=== PATIENT | male | born 1955 | race Caucasian/White ===

== ENCOUNTER 2022-11-08 08:34 | Outpatient (REF) | payer OTHER, SELFPAY ==
[2022-11-08 11:27] LABS: MANUAL DIFF FLAG NO
[2022-11-08 11:29] LABS: Appearance Urine Clear; Color Urine Yellow; Glucose Urine UA Negative (Negative); Leukocyte Esterase Urine Negative (Negative); Nitrite Urine Negative (Negative); PH 7.5 (5.0-9.0); Specific Gravity - Urine 1.015 (1.005-1.025); Urine Blood Negative (Negative); Urine Ketones Negative (Negative); Urine Protein Negative (Neg-Trace)
[2022-11-08 12:05] LABS: Basophils Percent Auto 0.7 % (0-2); Eosinophils Absolute Auto 0.2 X10*3/uL (0.0-0.4); Eosinophils Percent Auto 4.5 % (0-4); Hematocrit 43.3 % (42.0-52.0); Hemoglobin 14.4 g/dl (14.0-18.0); Imm Gran Abs Auto 0.01 X10*3/uL (0.00-0.03); Imm Gran Pct Auto 0.2 % (0.0-0.4); Lymphocytes Absolute Auto 1.5 X10*3/uL (1.2-4.9); Lymphocytes Percent Auto 34.9 % (20-40); Mean Corpuscular HGB Conc 33.3 g/dl (31.0-36.0); Mean Corpuscular Hemoglobin 31.4 pg (27.0-33.0); Mean Corpuscular Volume 94.5 fL (80.0-98.0); Monocytes Absolute Auto 0.5 X10*3/uL (0.1-1.2); Monocytes Percent Auto 11.6 % (2-11); Neutrophils Absolute Auto 2.1 x10*3/uL (2.0-8.3); Neutrophils Percent Auto 48.1 % (45-73); Platelet Count 198 X10*3/uL (160-400); Red Blood Count 4.58 X10*6/uL (4.60-5.80); Red Cell Distribution Width 13.2 % (11.0-16.0); White Blood Count 4.4 X10*3/uL (4.8-10.8)
[2022-11-08 12:21] LABS: Alanine Aminotransferase 24 U/L (0-40); Alkaline Phosphatase 53 U/L (39-117); Anion Gap 8 (12-20); Aspartate Amino Transferase 24 U/L (5-37); Bilirubin Total 0.8 mg/dL (0.0-1.0); Blood Urea Nitrogen 18 mg/dL (9-16); Calcium 9.1 mg/dL (8.4-10.2); Carbon Dioxide 31 mmol/L (22-29); Chloride 104 mmol/L (96-108); Cholesterol 166 mg/dL; Estimated Glomerular Filt Rate > 60; Glucose Fasting 102 mg/dL (60-99); HDL Cholesterol 63 mg/dL; LDL Cholesterol Calculated 89 mg/dl; Potassium 4.4 mmol/L (3.3-5.1); Sodium 139 mmol/L (135-145); Total Protein 6.5 g/dL (6.5-8.0); Triglycerides 73 mg/dL
[2022-11-08 12:26] LABS: Prostate Specific Antigen Scr 0.62 ng/mL (<0.05-4.0); TSH reflex Free T4 2.69 uIU/mL (0.32-4.0)
[2022-11-08 12:41] LABS: Creatinine Urine 94.84 mg/dL; Microalbumin Urine < 5.0 mg/L
== END 2022-11-08 08:35 | disposition home or self-care (01) ==
LOC: HO.HMGCLDS 08:34
PROVIDERS: PCP Family Medicine; Visit Provider Family Medicine
DX: Z00.00 Encounter for general adult medical examination without abnormal findings (principal); I10 Essential (primary) hypertension; Z12.5 Encounter for screening for malignant neoplasm of prostate
CPT/HCPCS: 36415; 80053; 80061; 81003; 82043; 84153; 84443; 85025

== ENCOUNTER 2023-02-14 09:03 | Outpatient (AMB) | payer OTHER, SELFPAY ==
--- NOTE | 2023-02-14 09:08 | A.OFFPC_ITS ---
Vital Signs 02/14/23 09:12 Height 5 ft 9 in Weight 174 lb 6 oz BMI 25.7 BP 104/68 Blood Pressure Location Lt brachial Position Sitting Respiration 17 Pulse 59 Pulse Source Pulse Oximeter Temp 98.7 F Temp Source Oral Intake Visit Reasons: CPE with f/u labs and health maint. Intake Note: Patient is here today for a physical and to follow up on his lab results. 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 HPI Details 67 y/o male presents for a CPE with f/u labs and health maintenance. Labs were drawn 11/08/22. Reviewed labs with pt. Elevated fasting glucose of 102. A1c today 02/14/23 is 5.5%. Triglycerides 73. TC 166. LDL 89. HDL 63. He states he tries to eat a healthy diet. He bicycles 3x a week for exercise. He reports last colonoscopy was 3-4 years ago. [facility] Medical History (Updated 02/14/23 @ 09:56 by Kimo Barrera) No pertinent past medical history Surgical History History of left hip replacement History of total right knee replacement Family History Mother Pacemaker Social History Household Members: Spouse Household Members Other:: mother in law Both parents involved: No Caregiver staying overnight: No Housing: House Are you a primary patient care associate to a significant other at home: No Do you presently have visiting nurse or other home services: No 75 years or older and lives alone: No Alcohol intake: current Patient Tobacco Use Status: Never used Tobacco e-Cigarette/Vaping Use: Never Used service: No Current occupational status: retired Cognitive needs: No Hearing needs: No Vision needs: No Review of Systems Const Denies chills, Denies fatigue, Denies fever(s), Denies headache(s) and Denies weakness Eyes Denies change in vision ENT Denies dizziness, Denies headache(s), Denies hearing loss, Denies nasal congestion, Denies sinus pain, Denies sinus pressure and Denies sore throat Card Denies chest pain, Denies lightheadedness, Denies dyspnea and Denies other (palpitations) Resp Denies cough, Denies dyspnea and Denies wheezing GI Denies abdominal pain, Denies melena, Denies hematochezia, Denies change in bowel habits, Denies dyspepsia and Denies nausea Denies hematuria and Denies dysuria Musc Denies abnormal gait, Denies myalgias, Denies arthralgias, Denies numbness and Denies tingling Skin/Breast Denies rash, Denies unusual bruising and Denies wounds Neuro Denies abnormal gait, Denies dizziness, Denies headache(s), Denies memory loss, Denies numbness, Denies Sensory deficit (Neuro), Denies tingling and Denies weakness Psych Denies anxiety, Denies depression and Denies memory loss Endo Denies cold intolerance, Denies fatigue, Denies heat intolerance, Denies polydipsia and Denies polyuria Kameron/Lymph Denies easy bleeding and Denies easy bruising Aller/Immun Denies wheezing Physical exam (Primary Care) Vital Signs: Last Vital Signs Temp 98.7 F 02/14/23 09:12 Pulse 59 02/14/23 09:12 Resp 17 02/14/23 09:12 BP 104/68 02/14/23 09:12 BMI result Body Mass Index 25.7 Tobacco/Smoking Status: Tobacco use Status Tobacco use date assessed 02/14/23 02/14/23 09:09 Patient Tobacco Use Status Never used Tobacco 02/14/23 09:09 e-Cigarette/Vaping Use Never Used 02/14/23 09:09 Const General: no acute distress, well developed, alert and awake Nutritional Appearance: well nourished Orientation/consciousness: patient oriented x3 HENMT Head: Yes normocephalic and Yes atraumatic Ears: hearing grossly normal bilaterally and TM's normal bilaterally General nose exam: Normal external nose present and Normal nares present Mouth: Normal oral and palatal mucosa present and moist mucous membranes Teeth and gingiva: dentition normal Throat: Yes posterior oropharynx normal Eyes General: appearance normal, both eyes and all related structures Pupils: Equal, round and reactive pupils present and Pupil accommodation reflex normal EOM: EOMs intact bilaterally Neck Neck: Yes normal visual inspection, Yes no lymphadenopathy and Yes trachea midline Thyroid: Thyroid normal Carotids: no bruits Lymphatic: no lymphadenopathy noted Chest Chest palpation & inspection: normal inspection of the chest Resp Effort & Inspection: normal respiratory effort Auscultation: clear to auscultation bilaterally Cardio Rate: regular rate Rhythm: regular rhythm Heart sounds: S1 normal heart sound present, S2 normal heart sound present, no gallops, no murmurs and no rubs Bruits: no abdominal aortic bruits and no carotid bruits GI Palpation (GI): No Abdominal aortic bruit present, Soft to palpation, nontender, No hepatosplenomegaly present and No Rebound tenderness present Auscultation: normal bowel sounds General: Yes no CVA tenderness Back/Spine/Pelvis Back: no CVA tenderness Cervical Spine: cervical ROM normal and No Cervical spine tenderness Thoracic/Lumbar Spine: thoraco-lumbar ROM normal, No pain with thoraco-lumbar ROM, No thoracic spinal tenderness and No lumbar spinal tenderness Skin Lesions: no lesions Rashes: no rashes Trauma: no lacerations or abrasions Wounds: no wounds Nails: normal Neuro General: patient oriented x3 Cranial nerves: Yes Equal, round and reactive pupils present Cognition (Neuro): normal cognition Gait exam (Neuro): Normal gait present Motor exam (neuro): 5/5 motor strength present throughout Sensory Exam: No Sensory deficit (Neuro) Deep tendon reflexes (DTR's): Right patellar reflex intensity grade: 2+ and Left patellar reflex intensity grade: 2+ Extrem General: Yes normal to inspection and No edema Psych Appearance: grossly normal Affect: normal affect Attitude: cooperative Thought process: Normal thought process present Results AMB Hemoglobin A1c AMB Hemoglobin A1c 5.5 % Last Edit by Mell Lucia on 02/14/23 10:0 4 Assessment and Plan Assessment & Plan (1) Adult general medical exam: Code(s): Z00.00 - Encounter for general adult medical examination without abnormal findings Plan: 67-year-old male presents for complete physical exam Encouraged healthy diet with active lifestyle and plenty of exercise (2) Elevated fasting glucose: Code(s): R73.01 - Impaired fasting glucose Plan: A1c towards top of normal range and some elevated fasting blood sugar. Likely insulin resistance Encouraged a diet lower in sugars and starches (3) Eczema: Code(s): L30.9 - Dermatitis, unspecified Plan: Mild eczema/dermatitis at ear canal Much improved with a moisturizer so he will continue this (4) Hyperlipidemia: Code(s): E78.5 - Hyperlipidemia, unspecified Plan: Lipids appear well controlled on rosuvastatin Continue current medication regimen (5) Screening for colon cancer: Code(s): Z12.11 - Encounter for screening for malignant neoplasm of colon Plan: Polyp noted at his last colonoscopy 3-4 years ago and they recommended a follow- up which he thinks was around 5 years This was in [facility] and he would like a closer GI specialist Referred to Gastroenterology (6) Screening for prostate cancer: Code(s): Z12.5 - Encounter for screening for malignant neoplasm of prostate Plan: PSA was within normal limits (7) Low back pain: Code(s): M54.50 - Low back pain, unspecified Plan: Patient had strained his back previously. He says this is almost resolved with gentle stretching at home. He will let me know if this flares up and I will evaluate him to determine next steps For now he can use ice/heat and gentle stretching Orders: Referrals Gastroenterology Referral Z12.11 - Encounter for screening for malignant neoplasm of colon Coding Level of Care Code Est Pt Level 3 (07259) Est Pt Prev Care >65y(51617) Diagnoses Adult general medical exam Z00.00 Elevated fasting glucose R73.01 Eczema L30.9 Hyperlipidemia E78.5 Screening for colon cancer Z12.11 Screening for prostate cancer Z12.5 Low back pain M54.50
[2023-02-14 09:12] VITALS: BP 104/68; PULSE 59; RESP 17; TEMP 37.1; BMI 25.7
== END 2023-02-14 10:14 | disposition home or self-care (01) ==
PROVIDERS: PCP Family Medicine; Visit Provider Family Medicine
DX: Z00.00 Encounter for general adult medical examination without abnormal findings (principal); R73.01 Impaired fasting glucose; L30.9 Dermatitis, unspecified; E78.5 Hyperlipidemia, unspecified; Z12.11 Encounter for screening for malignant neoplasm of colon; Z12.5 Encounter for screening for malignant neoplasm of prostate; M54.50 Low back pain, unspecified
CPT/HCPCS: 83036; 99397

== ENCOUNTER 2023-06-25 11:39 | Outpatient (AMB) | payer OTHER, SELFPAY ==
--- NOTE | 2023-06-25 11:50 | A.OFFPC_ITS ---
Vital Signs 06/25/23 11:51 Height 5 ft 9 in Weight 177 lb 8 oz BMI 26.2 BP 120/76 Blood Pressure Location Lt brachial Position Sitting Pulse 81 Pulse Oximetry (%) 98 Oxygen Delivery Method Room Air Intake Visit Reasons: f/u elevated fasting glucose Intake Note: Patient is here with elevated fasting glucose follow up today. Patient is requesting refill of Rosuvastatin. Last colonoscopy was [id number]. at [facility] in [place]. Allergies No Known Allergies Allergy (Verified 06/25/23 11:54) Tobacco use date assessed: 02/14/23 Fall risk assessment: No Falls in past year Last assessed Fall Risk: 06/25/23 HPI f/u elevated fasting glucose HPI Details 67 y/o male presents to f/u elevated fas ting blood sugars. Last A1c 02/14/23 5.5%. A1c today 06/25/23 is 5.5%. [facility] Medical History (Updated 02/14/23 @ 09:56 by Kimo Barrera) No pertinent past medical history Surgical History History of total right knee replacement History of left hip replacement Family History Mother Pacemaker Social History Household Members: Spouse Household Members Other:: mother in law Both parents involved: No Caregiver staying overnight: No Housing: House Are you a primary vp care management to a significant other at home: No Do you presently have visiting nurse or other home services: No 75 years or older and lives alone: No Alcohol intake: current Patient Tobacco Use Status: Never used Tobacco e-Cigarette/Vaping Use: Never Used service: No Current occupational status: retired Cognitive needs: No Hearing needs: No Vision needs: No Review of Systems Const Denies chills, Denies fatigue, Denies fever(s), Denies headache(s) and Denies weakness ENT Denies dizziness and Denies headache(s) Card Denies chest pain, Denies lightheadedness, Denies dyspnea and Denies other (Palpitations) Resp Denies cough, Denies dyspnea, Denies wheezing and Denies other ( shortness of breath) Musc Denies numbness and Denies tingling Neuro Denies dizziness, Denies headache(s), Denies numbness, Denies tingling, Denies paresthesias and Denies weakness Psych Denies anxiety and Denies depression Endo Denies fatigue Aller/Immun Denies wheezing Physical exam (Primary Care) Vital Signs: Last Vital Signs Pulse 81 06/25/23 11:51 BP 120/76 06/25/23 11:51 Pulse Ox 98 06/25/23 11:51 Oxygen Delivery Method Room Air 06/25/23 11:51 BMI result Body Mass Index 26.2 Tobacco/Smoking Status: Tobacco use Status Tobacco use date assessed 02/14/23 06/25/23 12:04 Patient Tobacco Use Status Never used Tobacco 06/25/23 12:04 e-Cigarette/Vaping Use Never Used 06/25/23 12:04 Const General: no acute distress and well developed Nutritional Appearance: well nourished Orientation/consciousness: patient oriented x3 HENMT Head: Yes normocephalic and Yes atraumatic Eyes General: appearance normal, both eyes and all related structures Pupils: Equal, round and reactive pupils present EOM: EOMs intact bilaterally Resp Effort & Inspection: normal respiratory effort Auscultation: clear to auscultation bilaterally Cardio Rate: regular rate Rhythm: regular rhythm Heart sounds: S1 normal heart sound present, S2 normal heart sound present, no gallops, no murmurs and no rubs Neuro General: patient oriented x3 and gait normal Cranial nerves: Yes Equal, round and reactive pupils present Psych Affect: normal affect Results AMB Hemoglobin A1c AMB Hemoglobin A1c 5.5 % Last Edit by Meenakshi Hines CMA on 06/25/23 12:24 Assessment and Plan Assessment & Plan (1) Elevated fasting glucose: Code(s): R73.01 - Impaired fasting glucose Plan: A1c?remains?at?5.5% Encouraged?healthy?diet?low?in?sugars?and?starches Continue?exercise?and?weight?control (2) Screening for colon cancer: Code(s): Z12.11 - Encounter for screening for malignant neoplasm of colon Plan: Patient?notes?his?last?colonoscopy?was?in?2020?at[facility]. Recommended?5?year?follow-up Will?request?report (3) Hyperlipidemia: Code(s): E78.5 - Hyperlipidemia, unspecified Plan: Last?LDL?cholesterol?showed?good?control?on?rosuvastatin Continue?medication Orders: Orders AMB Hemoglobin A1c Today Z13.9 - Encounter for screening, unspecified Medications: Changed From rosuvastatin 10 mg PO BEDTIME To rosuvastatin 10 mg PO BEDTIME 90 days 90 tabs 3RF Coding Level of Care Code Est Pt Level 4 (51997) Diagnoses Elevated fasting glucose R73.01 Screening for colon cancer Z12.11 Hyperlipidemia E78.5
[2023-06-25 11:51] VITALS: BP 120/76; PULSE 81; O2SAT 98; BMI 26.2
== END 2023-06-25 12:33 | disposition home or self-care (01) ==
PROVIDERS: PCP Family Medicine; Visit Provider Family Medicine
DX: R73.01 Impaired fasting glucose (principal); Z12.11 Encounter for screening for malignant neoplasm of colon; E78.5 Hyperlipidemia, unspecified
CPT/HCPCS: 83036; 99214

== ENCOUNTER 2024-02-03 07:21 | Outpatient (REF) | payer OTHER, SELFPAY ==
[2024-02-03 10:16] LABS: MANUAL DIFF FLAG NO
[2024-02-03 10:25] LABS: Appearance Urine Clear; Color Urine Yellow; Glucose Urine UA Negative (Negative); Leukocyte Esterase Urine Negative (Negative); Nitrite Urine Negative (Negative); PH 6.5 (5.0-9.0); Urine Blood Negative (Negative); Urine Ketones Negative (Negative); Urine Protein Negative (Neg-Trace)
[2024-02-03 10:28] LABS: Basophils Percent Auto 0.7 % (0-2); Eosinophils Absolute Auto 0.2 X10*3/uL (0.0-0.4); Eosinophils Percent Auto 5.3 % (0-4); Hematocrit 42.8 % (42.0-52.0); Hemoglobin 14.2 g/dl (14.0-18.0); Imm Gran Abs Auto 0.01 X10*3/uL (0.00-0.03); Imm Gran Pct Auto 0.2 % (0.0-0.4); Lymphocytes Absolute Auto 1.4 X10*3/uL (1.2-4.9); Mean Corpuscular HGB Conc 33.2 g/dl (31.0-36.0); Mean Corpuscular Hemoglobin 31.8 pg (27.0-33.0); Mean Corpuscular Volume 95.7 fL (80.0-98.0); Mean Platelet Volume 10.3 fL (9.4-12.4); Monocytes Absolute Auto 0.6 X10*3/uL (0.1-1.2); Monocytes Percent Auto 12.1 % (2-11); Neutrophils Absolute Auto 2.4 x10*3/uL (2.0-8.3); Neutrophils Percent Auto 51.7 % (45-73); Platelet Count 186 X10*3/uL (160-400); Red Blood Count 4.47 X10*6/uL (4.60-5.80); White Blood Count 4.6 X10*3/uL (4.8-10.8)
[2024-02-03 10:57] LABS: Alanine Aminotransferase 17 U/L (0-40); Albumin Level 4.1 g/dL (3.5-5.0); Alkaline Phosphatase 51 U/L (39-117); Anion Gap 11 (12-20); Aspartate Amino Transferase 20 U/L (5-37); Bilirubin Total 0.3 mg/dL (0.0-1.0); Blood Urea Nitrogen 20 mg/dL (9-16); Calcium 9.4 mg/dL (8.4-10.2); Carbon Dioxide 31 mmol/L (22-29); Chloride 104 mmol/L (96-108); Cholesterol 161 mg/dL (<200); Estimated Glomerular Filt Rate > 60; Glucose Fasting 98 mg/dL (60-99); HDL Cholesterol 65 mg/dL (>40); LDL Cholesterol Calculated 85 mg/dL (<100); Potassium 4.7 mmol/L (3.3-5.1); Sodium 141 mmol/L (135-145); Total Protein 6.9 g/dL (6.5-8.0); Triglycerides 58 mg/dL (<150)
[2024-02-03 11:04] LABS: Prostate Specific Antigen Scr 0.62 ng/mL (<0.05-4.0)
[2024-02-03 12:24] LABS: Creatinine Urine 47.97 mg/dL; Microalbumin Urine < 5.0 mg/L
== END 2024-02-03 07:22 | disposition home or self-care (01) ==
LOC: HO.HMGCLDS 07:21
PROVIDERS: PCP Family Medicine; Visit Provider Family Medicine
DX: Z00.00 Encounter for general adult medical examination without abnormal findings (principal); Z12.5 Encounter for screening for malignant neoplasm of prostate; I10 Essential (primary) hypertension
CPT/HCPCS: 36415; 80053; 80061; 81003; 82043; 82570; 84153; 84443; 85025

== ENCOUNTER 2024-02-17 11:00 | Outpatient (AMB) | payer OTHER, SELFPAY ==
--- NOTE | 2024-02-17 11:02 | A.OFFPC_ITS ---
Vital Signs 02/17/24 11:03 02/17/24 11:40 Height 5 ft 9 in Weight 167 lb 2 oz BMI 24.7 BP 148/82 H 128/80 Blood Pressure Location Lt brachial Rt brachial Position Sitting Sitting Pulse 64 Pulse Source Pulse Oximeter Pulse Oximetry (%) 97 Oxygen Delivery Method Room Air Intake Visit Reasons: CPE with f/u labs and health maintenance Intake Note: David is a 68 year old male who presents to the office today for a CPE with f/u labs and health maintenance. Pt states he is overall feeling well. Pt states his last colonoscopy was 2020 and is wondering if he should be referred to [facility]. Allergies No Known Allergies Allergy (Verified 02/17/24 11:06) Medication List - Last Reconciled 02/17/24 by Silviano Daley MD rosuvastatin 10 mg PO BEDTIME 90 days Tobacco use date assessed: 02/17/24 Fall risk assessment: No Falls in past year Last assessed Fall Risk: 02/17/24 Dental Screening Dental Screen Date: 02/17/24 Did you have a dental visit in the last 12 months?: Yes Did you have a dental problem in the last 6 months where you did not have access to dental care?: No Was dental information given to patient?: Patient has dentist HPI CPE with f/u labs and health maintenance HPI Details 68 y/o male presents for a CPE with f/u labs and health maintenance. Labs were drawn 02/03/24. Reviewed labs with pt. Triglycerides 58. TC 161. LDL 85. HDL 65. PSA 0.62. A1c today 02/17/24 is 5.7%. He continues to cycle 3 times a week. [facility] Medical History No pertinent past medical history Surgical History History of total right knee replacement History of left hip replacement Family History Mother Pacemaker Social History Household Members: Spouse Household Members Other:: mother in law Both parents involved: No Caregiver staying overnight: No Housing: House Are you a primary career law clerk to a significant other at home: No Do you presently have visiting nurse or other home services: No 75 years or older and lives alone: No Alcohol intake: current Patient Tobacco Use Status: Never used Tobacco e-Cigarette/Vaping Use: Never Used service: No Current occupational status: retired Cognitive needs: No Hearing needs: No Vision needs: No Questionnaire PHQ-9 Over the last 2 weeks, how often have you been bothered by any of the following problems? 1. Little interest or pleasure in doing things: not at all 2. Feeling down, depressed, or hopeless: not at all 3. Trouble falling or staying asleep, or sleeping too much: not at all 4. Feeling tired or having little energy: not at all 5. Poor appetite or overeating: not at all 6. Feeling bad about yourself - or that you are a failure or have let yourself or your family down: not at all 7. Trouble concentrating on things, such as reading the newspaper or watching television: not at all 8. Moving or speaking so slowly that other people could have noticed. Or the opposite - being so fidgety or restless that you have been moving around a lot more than usual: not at all 9. Thoughts that you would be better off or of hurting yourself in some way: not at all Total score: 0 Source: Developed by Drs. Josep King, Janet Negrete, Jax Lema and colleagues, with an educational meño from [employer]. Thrive Questionnaire Date Thrive assessed: 02/17/24 I am a: Patient What is your living situation today?: I have a steady place to live Within the past 12 months, did the food you bought not last and you didn't have the money to get more?: Never true Within the past 12 months, did you worry whether your food would run out before you got money to buy more?: Never true Do you have trouble paying for medicines?: No Do you have trouble getting transportation to medical appointments?: No Do you have trouble paying your heating and electricity bill?: No Do you have trouble taking care of your child, family member or friend?: No Do you have trouble with day-to-day activities such as bathing, preparing meals, shopping, managing finances, etc.?: No Are you currently unemployed and looking for a job?: No Are you interested in more education?: No THRIVE Score: 0 AUDIT C Alcohol Use Questionnaire (AUDIT-C) 1. How often do you have a drink containing alcohol?: 2-3 times a week 2. How many drinks containing alcohol do you have on a typical day when you are drinking?: 1 or 2 3. How often do you have six or more drinks on one occasion?: Never Total Score: 3 ALEX-7 AMB Questionnaire ALEX-7 Date ALEX - 7 assessed: 02/17/24 Feeling nervous, anxious, or on edge: 0 = Not at all Not being able to stop or control worryin = Not at all Worrying too much about different things: 0 = Not at all Trouble relaxin = Not at all Being so restless that it is hard to sit still: 0 = Not at all Becoming easily annoyed or irritable: 0 = Not at all Feeling afraid as if something awful might happen: 0 = Not at all Total ALEX-7 score (0-4 normal; 5-9 mild; 10-14 moderate; 15-21 severe): 0 Source: Developed by Drs. Josep King, Janet Negrete, Jax Lema and colleagues, with an educational meño from [employer]. Review of Systems Const Denies chills, Denies fatigue, Denies fever(s), Denies headache(s) and Denies weakness Eyes Denies change in vision ENT Denies dizziness, Denies headache(s), Denies hearing loss, Denies nasal congestion, Denies sinus pain, Denies sinus pressure and Denies sore throat Card Denies chest pain, Denies lightheadedness, Denies dyspnea and Denies other (palpitations) Resp Denies cough, Denies dyspnea and Denies wheezing GI Denies abdominal pain, Denies melena, Denies hematochezia, Denies change in bowel habits, Denies dyspepsia and Denies nausea Denies hematuria and Denies dysuria Musc Denies abnormal gait, Denies myalgias, Denies arthralgias, Denies numbness and Denies tingling Skin/Breast Denies rash, Denies unusual bruising and Denies wounds Neuro Denies abnormal gait, Denies dizziness, Denies headache(s), Denies memory loss, Denies numbness, Denies Sensory deficit (Neuro), Denies tingling and Denies weakness Psych Denies anxiety, Denies depression and Denies memory loss Endo Denies cold intolerance, Denies fatigue, Denies heat intolerance, Denies polydipsia and Denies polyuria Kameron/Lymph Denies easy bleeding and Denies easy bruising Aller/Immun Denies wheezing Physical exam (Primary Care) Vital Signs: Last Vital Signs Pulse 64 02/17/24 11:03 BP 148/82 H 02/17/24 11:03 Pulse Ox 97 02/17/24 11:03 Oxygen Delivery Method Room Air 02/17/24 11:03 BMI result Body Mass Index 24.7 Tobacco/Smoking Status: Tobacco use Status Tobacco use date assessed 02/17/24 02/17/24 11:09 Patient Tobacco Use Status Never used Tobacco 02/17/24 11:02 e-Cigarette/Vaping Use Never Used 02/17/24 11:02 PHQ-9: PHQ-9 Score PHQ-9: Total score 0 02/17/24 11:39 Thrive Assessment: Date of Thrive Assessment Date Thrive assessed 02/17/24 02/17/24 11:09 Const General: no acute distress, well developed, alert and awake Nutritional Appearance: well nourished Orientation/consciousness: patient oriented x3 HENMT Head: Yes normocephalic and Yes atraumatic Ears: hearing grossly normal bilaterally and TM's normal bilaterally General nose exam: Normal external nose present and Normal nares present Mouth: Normal oral and palatal mucosa present and moist mucous membranes Teeth and gingiva: dentition normal Throat: Yes posterior oropharynx normal Eyes General: appearance normal, both eyes and all related structures Pupils: Equal, round and reactive pupils present and Pupil accommodation reflex normal EOM: EOMs intact bilaterally Neck Neck: Yes normal visual inspection, Yes no lymphadenopathy and Yes trachea midline Thyroid: Thyroid normal Carotids: no bruits Lymphatic: no lymphadenopathy noted Chest Chest palpation & inspection: normal inspection of the chest Resp Effort & Inspection: normal respiratory effort Auscultation: clear to auscultation bilaterally Cardio Rate: regular rate Rhythm: regular rhythm Heart sounds: S1 normal heart sound present, S2 normal heart sound present, no gallops, no murmurs and no rubs Bruits: no abdominal aortic bruits and no carotid bruits GI Palpation (GI): No Abdominal aortic bruit present, Soft to palpation, nontender, No hepatosplenomegaly present and No Rebound tenderness present Auscultation: normal bowel sounds General: Yes no CVA tenderness Back/Spine/Pelvis Back: no CVA tenderness Cervical Spine: cervical ROM normal and No Cervical spine tenderness Thoracic/Lumbar Spine: thoraco-lumbar ROM normal, No pain with thoraco-lumbar ROM, No thoracic spinal tenderness and No lumbar spinal tenderness Skin Lesions: no lesions Rashes: no rashes Trauma: no lacerations or abrasions Wounds: no wounds Nails: normal Neuro General: patient oriented x3 Cranial nerves: Yes Equal, round and reactive pupils present Cognition (Neuro): normal cognition Gait exam (Neuro): Normal gait present Motor exam (neuro): 5/5 motor strength present throughout Sensory Exam: No Sensory deficit (Neuro) Deep tendon reflexes (DTR's): Right patellar reflex intensity grade: 2+ and Left patellar reflex intensity grade: 2+ Extrem General: Yes normal to inspection and No edema Psych Appearance: grossly normal Affect: normal affect Attitude: cooperative Thought process: Normal thought process present Results AMB Hemoglobin A1c AMB Hemoglobin A1c 5.7 % Last Edit by Waleska Burrell CMA on 02/17/24 11:23 Results Reviewed Results Reviewed: Laboratory Last Values Hgb A1c (Clinic) 5.7 % (4.0-6.0) 02/17/24 11:22 Assessment and Plan Assessment & Plan (1) Adult general medical exam: Code(s): Z00.00 - Encounter for general adult medical examination without abnormal findings Plan: 68-year-old?male?presents?for?complete?physical?exam Exam?within?normal?limits Encouraged?healthy?diet?with?active?lifestyle?and?plenty?of?exercise (2) Hyperlipidemia: Code(s): E78.5 - Hyperlipidemia, unspecified Plan: Lipids?well?controlled. Continue?rosuvastatin (3) Elevated blood pressure reading: Code(s): R03.0 - Elevated blood-pressure reading, without diagnosis of hypertension Plan: BP?elevated?at?presentation?but?is?fine?with?relaxation. (4) Pre-diabetes: Code(s): R73.03 - Prediabetes Plan: A1c?5.7%;?pre?diabetes?range Patient?has?lost?about?10?lb?but?A1c?has?climbed Encouraged?a?diet?lower?in?sugars?and?starches Will?follow (5) Screening for colon cancer: Code(s): Z12.11 - Encounter for screening for malignant neoplasm of colon Plan: Patient?says?he?had?a?colonoscopy?in?2020?and?was?told?to?follow-up?in?5?years. I?still?do?not?have?the?report?and?will?request this Expected?follow-up?in?2025.??Will?discuss?again?at?his?next?physical (6) Screening for prostate cancer: Code(s): Z12.5 - Encounter for screening for malignant neoplasm of prostate Plan: PSA?within?normal?range. Continue?annual?screening. Orders: Orders AMB Hemoglobin A1c Today R73.01 - Impaired fasting glucose Coding Level of Care Code Est Pt Level 3 (34689) Est Pt Prev Care >65y(29925) Diagnoses Adult general medical exam Z00.00 Hyperlipidemia E78.5 Elevated blood pressure reading R03.0 Pre-diabetes R73.03 Screening for colon cancer Z12.11 Screening for prostate cancer Z12.5
[2024-02-17 11:03] VITALS: BP 148/82; PULSE 64; O2SAT 97; BMI 24.7
[2024-02-17 11:40] VITALS: BP 128/80
== END 2024-02-17 11:46 | disposition home or self-care (01) ==
PROVIDERS: PCP Family Medicine; Visit Provider Family Medicine
DX: Z00.00 Encounter for general adult medical examination without abnormal findings (principal); E78.5 Hyperlipidemia, unspecified; R03.0 Elevated blood-pressure reading, without diagnosis of hypertension; R73.03 Prediabetes; Z12.11 Encounter for screening for malignant neoplasm of colon; Z12.5 Encounter for screening for malignant neoplasm of prostate; R73.01 Impaired fasting glucose
CPT/HCPCS: 83036; 99213; 99397

== ENCOUNTER 2024-05-25 09:23 | Outpatient (AMB) | payer OTHER, SELFPAY ==
--- NOTE | 2024-05-25 09:39 | A.OFFPC_ITS ---
Vital Signs 05/25/24 09:40 Height 5 ft 9 in Weight 169 lb 6 oz BMI 25.0 BP 134/71 Blood Pressure Location Rt brachial Position Sitting Respiration 16 Pulse 69 Pulse Source Pulse Oximeter Temp 98.6 F Temp Source Temporal Artery Scan Pulse Oximetry (%) 98 Oxygen Delivery Method Room Air Intake Visit Reasons: f/u elevated blood pressure reading, pre-diabetes Intake Note: f/u for B/P and Pre-DM Allergies No Known Allergies Allergy (Verified 05/25/24 09:40) Medication List - Last Reconciled 05/25/24 by Silviano Daley MD rosuvastatin 10 mg PO BEDTIME 90 days Tobacco use date assessed: 02/17/24 Dental Screening Dental Screen Date: 02/17/24 HPI f/u elevated blood pressure reading, pre-diabetes HPI Details 68 y/o male presents to f/u elevated BP reading, pre-diabetes. Last A1c 02/17/24 5.7%. A1c today 05/25/24 is 5.6%. Blood pressure today 134/71, 69p. [facility] Medical History No pertinent past medical history Surgical History History of total right knee replacement History of left hip replacement Family History Mother Pacemaker Social History Household Members: Spouse Household Members Other:: mother in law Both parents involved: No Caregiver staying overnight: No Housing: House Are you a primary social worker palliative care to a significant other at home: No Do you presently have visiting nurse or other home services: No 75 years or older and lives alone: No Alcohol intake: current Patient Tobacco Use Status: Never used Tobacco e-Cigarette/Vaping Use: Never Used service: No Current occupational status: retired Cognitive needs: No Hearing needs: No Vision needs: No Questionnaire PHQ-9 Over the last 2 weeks, how often have you been bothered by any of the following problems? 1. Little interest or pleasure in doing things: not at all 2. Feeling down, depressed, or hopeless: not at all 3. Trouble falling or staying asleep, or sleeping too much: not at all 4. Feeling tired or having little energy: not at all 5. Poor appetite or overeating: not at all 6. Feeling bad about yourself - or that you are a failure or have let yourself or your family down: not at all 7. Trouble concentrating on things, such as reading the newspaper or watching television: not at all 8. Moving or speaking so slowly that other people could have noticed. Or the opposite - being so fidgety or restless that you have been moving around a lot more than usual: not at all 9. Thoughts that you would be better off or of hurting yourself in some way: not at all Total score: 0 Source: Developed by Drs. Josep King, Janet Negrete, aJx Lema and colleagues, with an educational meño from [employer]. Thrive Questionnaire Date Thrive assessed: 05/19/24 I am a: Patient What is your living situation today?: I have a steady place to live Within the past 12 months, did the food you bought not last and you didn't have the money to get more?: Never true Within the past 12 months, did you worry whether your food would run out before you got money to buy more?: Never true Do you have trouble paying for medicines?: No Do you have trouble getting transportation to medical appointments?: No Do you have trouble paying your heating and electricity bill?: No Do you have trouble taking care of your child, family member or friend?: Yes Do you have trouble with day-to-day activities such as bathing, preparing meals, shopping, managing finances, etc.?: No Are you currently unemployed and looking for a job?: No Are you interested in more education?: No Please select the resources that you would like help with: Care for elder or disabled Currently or been in a relationship where the following occur: No concerns reported THRIVE Score: 0 AUDIT C Alcohol Use Questionnaire (AUDIT-C) 1. How often do you have a drink containing alcohol?: 2-3 times a week 2. How many drinks containing alcohol do you have on a typical day when you are drinking?: 1 or 2 3. How often do you have six or more drinks on one occasion?: Never Total Score: 3 ALEX-7 AMB Questionnaire ALEX-7 Date ALEX - 7 assessed: 02/17/24 Feeling nervous, anxious, or on edge: 0 = Not at all Not being able to stop or control worryin = Not at all Worrying too much about different things: 0 = Not at all Trouble relaxin = Not at all Being so restless that it is hard to sit still: 0 = Not at all Becoming easily annoyed or irritable: 0 = Not at all Feeling afraid as if something awful might happen: 0 = Not at all Total ALEX-7 score (0-4 normal; 5-9 mild; 10-14 moderate; 15-21 severe): 0 Source: Developed by Drs. Josep King, Janet Negrete, Jax Lema and colleagues, with an educational meño from [employer]. Review of Systems Const Denies chills, Denies fatigue, Denies fever(s), Denies headache(s) and Denies weakness ENT Denies dizziness and Denies headache(s) Card Denies dyspnea Resp Denies cough, Denies dyspnea, Denies wheezing and Denies other (shortness of breath) Musc Denies numbness and Denies tingling Neuro Denies dizziness, Denies headache(s), Denies numbness, Denies tingling and Denies weakness Psych Denies anxiety and Denies depression Endo Denies fatigue Aller/Immun Denies wheezing Physical exam (Primary Care) Vital Signs: Last Vital Signs Temp 98.6 F 05/25/24 09:40 Pulse 69 05/25/24 09:40 Resp 16 05/25/24 09:40 BP 134/71 05/25/24 09:40 Pulse Ox 98 05/25/24 09:40 Oxygen Delivery Method Room Air 05/25/24 09:40 BMI result Body Mass Index 25.0 Tobacco/Smoking Status: Tobacco use Status Tobacco use date assessed 02/17/24 05/25/24 09:43 Patient Tobacco Use Status Never used Tobacco 05/25/24 09:43 e-Cigarette/Vaping Use Never Used 05/25/24 09:43 PHQ-9: PHQ-9 Score PHQ-9: Total score 0 05/25/24 09:44 Thrive Assessment: Date of Thrive Assessment Date Thrive assessed 05/19/24 05/25/24 09:43 Currently or been in a relationship where the following occur: No concerns reported Const General: well developed; No acute distress Nutritional Appearance: well nourished Orientation/consciousness: patient oriented x3 HENMT Head: Yes normocephalic and Yes atraumatic Eyes General: appearance normal, both eyes and all related structures Pupils: Equal, round and reactive pupils present EOM: EOMs intact bilaterally Resp Effort & Inspection: normal respiratory effort Auscultation: clear to auscultation bilaterally Cardio Rate: regular rate Rhythm: regular rhythm Heart sounds: S1 normal heart sound present, S2 normal heart sound present, no gallops, no murmurs and no rubs Neuro General: patient oriented x3 and gait normal Cranial nerves: Yes Equal, round and reactive pupils present Psych Affect: normal affect Coding Level of Care Code Est Pt Level 3 (89516) Diagnoses Pre-diabetes R73.03 Elevated blood pressure reading R03.0 Assessment & Plan Assessment & Plan (1) Pre-diabetes: Code(s): R73.03 - Prediabetes Category: Medical Plan: A1c?is?stable?and?slightly?improved?from?5.7%?down?to?5.6%. Encouraged?a?diet?low?in?sugars?and?starches Encouraged?exercise?and?weight?control (2) Elevated blood pressure reading: Code(s): R03.0 - Elevated blood-pressure reading, without diagnosis of hypertension Category: Medical Plan: Blood?pressure?in?prehypertensive?range. Selin ent?notes?that?his?blood?pressures?are?better?at?home?and?increase?at?doctor's?o ffice?visit No?indication?for?medicine?at?this?time Encouraged?a?diet?low?in?sodium/salt Encouraged?exercise?and?weight?control Orders: Orders Complete Blood Count Auto Diff Today Z00.00 - Encounter for general adult medical examination without abnormal findings Prostate Specific Antigen Scr Today Z12.5 - Encounter for screening for malignant neoplasm of prostate Lipid Panel Today Z00.00 - Encounter for general adult medical examination without abnormal findings Comprehensive [place]. Panel Fast Today Z00.00 - Encounter for general adult medical examination without abnormal findings Microalbumin, Random (w Creat) Today I10 - Essential (primary) hypertension TSH reflex Free T4 Today Z00.00 - Encounter for general adult medical examination without abnormal findings UA and rflx microscopic Today Z00.00 - Encounter for general adult medical examination without abnormal findings
[2024-05-25 09:40] VITALS: BP 134/71; PULSE 69; RESP 16; TEMP 37; O2SAT 98; BMI 25.0
== END 2024-05-25 09:56 | disposition home or self-care (01) ==
PROVIDERS: PCP Family Medicine; Visit Provider Family Medicine
DX: R73.03 Prediabetes (principal); R03.0 Elevated blood-pressure reading, without diagnosis of hypertension

== ENCOUNTER → 2024-05-25 09:23 | Outpatient (BNVA) | payer OTHER, SELFPAY | PROVIDERS: PCP Family Medicine; Visit Provider Family Medicine ==

== ENCOUNTER 2025-01-20 11:27 | Inpatient (IN) | payer MEDICARE, SELFPAY ==
--- NOTE | ~2025-01-20 | XR_ITS ---
EXAMINATION: XR WRIST, RIGHT CLINICAL INFORMATION: pain, injury COMPARISON: None available. TECHNIQUE: PA, oblique, and navicular spot view of the right wrist. FINDINGS: There is no joint diastases or offset. No degenerative changes are evident. No fracture line is visualized. XR/XR wrist RT min 3V IMPRESSION: Unremarkable right wrist. Electronically signed by: Alexander Unger MD 01/20/2025 02:20 PM EDT
--- NOTE | ~2025-01-20 | XR_ITS ---
EXAMINATION: XR KNEE, RIGHT CLINICAL INFORMATION: pain, injury COMPARISON: None available. TECHNIQUE: AP and lateral view x-ray of the right knee. FINDINGS: Total knee arthroplasty has been performed. There is soft tissue swelling anterior to the knee. No fracture line is apparent. XR/XR knee RT 2V IMPRESSION: Soft tissue swelling. Total knee arthroplasty. Electronically signed by: Alexander Unger MD 01/20/2025 02:18 PM EDT
--- NOTE | ~2025-01-20 | XR_ITS ---
EXAMINATION: XR HIP, RIGHT CLINICAL INFORMATION: fall COMPARISON: None available. TECHNIQUE: AP pelvis and two-view right hip FINDINGS: Left femoral head replacement has been performed. There is a fracture through the right femoral neck with mild valgus deformity. There is mild right hip degenerative change with small marginal osteophytes involving the femoral head and acetabular roof with minimal axial joint space narrowing. There is a small cortical step-off involving the superior pubic ramus without a clear fracture line. XR/XR hip RT w PEL1V IMPRESSION: Acute right femoral neck fracture. There is a small cortical step-off involving the right superior pubic ramus but no visible fracture line. Subtle nondisplaced fracture is not ruled in or out. Left femoral head replacement. Electronically signed by: Alexander Unger MD 01/20/2025 12:03 PM EDT
--- NOTE | ~2025-01-20 | XR_ITS ---
EXAMINATION: XR HAND, RIGHT CLINICAL INFORMATION: pain, injury COMPARISON: None available. TECHNIQUE: PA, lateral, and oblique views of the right hand. FINDINGS: There is mild asymmetric narrowing of interphalangeal joints of third digit and PIP joint of the fourth. There are marginal osteophytes involving the third DIP joint and fourth and fifth No other abnormalities. PIP joints XR/XR hand RT 2V IMPRESSION: Mild osteoarthritis, as above. No acute abnormality. Electronically signed by: Alexander Unger MD 01/20/2025 02:23 PM EDT
--- NOTE | ~2025-01-20 | FL_ITS ---
EXAMINATION: FL GUIDANCE ONLY HISTORY: right hip CRPP COMPARISON: Correlation is made with plain films of the right hip dated 01/20/2025. TECHNIQUE: Fluoroscopy time: 0.5 minutes. Cumulative Dose: 15.3 mGy. DAP: 0.266 mGym2 Images: 4. FINDINGS: Fluoroscopic spot films of the right hip demonstrate internal fixation of the previously seen subcapital fracture with 3 cannulated screws. FL/FL guidance in OR IMPRESSION: Fluoroscopy during procedure. Please see procedure report for additional information. Electronically signed by: Josep Hernandez MD 01/22/2025 06:58 AM EDT
--- NOTE | ~2025-01-20 | XR_ITS ---
EXAMINATION: XR CHEST CLINICAL INFORMATION: pre-op COMPARISON: None available. TECHNIQUE: Frontal view of the chest was obtained. FINDINGS: No significant abnormality is noted involving the heart, lungs, mediastinum, bony thorax or soft tissues. Moderate osteophytes are apparent in both shoulder joints, left greater than right. XR/XR chest 1V IMPRESSION: No acute disease in the chest. Moderate degenerative changes of the shoulders, left greater than right. Electronically signed by: Alexander Unger MD 01/20/2025 02:20 PM EDT
[2025-01-20 11:32] VITALS: BP 130/76; PULSE 57; RESP 16; TEMP 37; O2SAT 98; BMI 24.4
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
[2025-01-20 13:28] VITALS: BP 153/87; PULSE 57; RESP 18; O2SAT 98
--- NOTE | 2025-01-20 13:40 | ECG_ITS ---
Test Reason : fall Blood Pressure : */* mmHG Vent. Rate : 50 BPM Atrial Rate : 50 BPM P-R Int : 184 ms QRS Dur : 94 ms QT Int : 430 ms P-R-T Axes : 45 42 30 degrees QTcB Int : 392 ms Sinus bradycardia Otherwise normal ECG No previous ECGs available Referred By: Tequila Ortiz Electronically Signed By: VINAYAK ESCALANTE
[2025-01-20 14:00] LABS: MANUAL DIFF FLAG NO
[2025-01-20 14:01] LABS: Basophils Percent Auto 0.8 % (0-2); Eosinophils Absolute Auto 0.2 X10*3/uL (0.0-0.4); Eosinophils Percent Auto 3.2 % (0-4); Hematocrit 41.4 % (42.0-52.0); Hemoglobin 14.1 g/dl (14.0-18.0); Imm Gran Abs Auto 0.01 X10*3/uL (0.00-0.03); Imm Gran Pct Auto 0.2 % (0.0-0.4); Lymphocytes Absolute Auto 0.8 X10*3/uL (1.2-4.9); Lymphocytes Percent Auto 15.7 % (20-40); Mean Corpuscular HGB Conc 34.1 g/dl (31.0-36.0); Mean Corpuscular Volume 94.1 fL (80.0-98.0); Mean Platelet Volume 9.6 fL (9.4-12.4); Monocytes Absolute Auto 0.5 X10*3/uL (0.1-1.2); Monocytes Percent Auto 9.6 % (2-11); Neutrophils Absolute Auto 3.7 x10*3/uL (2.0-8.3); Neutrophils Percent Auto 70.5 % (45-73); Platelet Count 147 X10*3/uL (160-400); Red Cell Distribution Width 13.2 % (11.0-16.0); White Blood Count 5.3 X10*3/uL (4.8-10.8)
[2025-01-20 14:17] LABS: Alanine Aminotransferase 21 U/L (0-40); Albumin Level 4.1 g/dL (3.5-5.0); Alkaline Phosphatase 47 U/L (39-117); Anion Gap 12 (12-20); Aspartate Amino Transferase 23 U/L (5-37); Blood Urea Nitrogen 11 mg/dL (9-16); Calcium 9.3 mg/dL (8.4-10.2); Carbon Dioxide 27 mmol/L (22-29); Chloride 105 mmol/L (96-108); Creatinine Clr Calc Pharmacy 72.8; Estimated Glomerular Filt Rate > 60; Glucose Random 93 mg/dL (60-115); Potassium 4.6 mmol/L (3.3-5.1); Sodium 139 mmol/L (135-145); Total Protein 6.7 g/dL (6.5-8.0)
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
[2025-01-20 15:30] VITALS: BP 168/86; RESP 16; O2SAT 95
--- NOTE | 2025-01-20 15:38 | PC.NURSE ---
Pt repositioned and warm blanket given, pain level assess,call hairston within reach.
[2025-01-20 16:00] VITALS: BP 158/83; PULSE 61; RESP 16; TEMP 36.6; O2SAT 95
--- OUTSIDE RECORDS SUMMARY | 2025-01-20 16:05 | XMS_ITS | Clinical Summary ---
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 0 Active rosuvastatin (CRESTOR) tablet 10 mg TAKE 1 TABLET DAILY 90 tablet 3 06/29/2022 Active Active Problems Problem Noted Date Diagnosed Date Pure hypercholesterolemia 06/16/2021 Inguinal hernia of right cady e without obstruction or gangrene 05/05/2020 Wound, open, hip or thigh wi th tendon involvement, right, initial encounter 08/20/2018 Tendon tear 08/12/2018 Post-traumatic osteoarthritis of knee 05/16/2017 Degenerative arthritis of hip 04/30/2016 Routine general medical exam ination at a health care facility 04/30/2016 Right knee pain 04/30/2016 Resolved Problems Problem Noted Date Diagnosed Date Resolved Date Preoperative examination 08/12/2018 Arthritis of right knee 06/24/201807/29 Primary osteoarthritis of right knee 06/05/2018 08/12/2018 Immunizations Name Administration Dates Next Due Covid-19 (Moderna 12+) 100mcg/0.5mL dosage 06/05 Covid-19 (Pfizer) Dilution Required 10/21/2020 Influenza Quad (Fluad) 0.5 mL >65Yrs (AIIV4) Influenza Quad (Fluarix/Fluz one/FluLaval) 0.5mL (SD-IIV4) 06/05/2018 Influenza Quad (Flucelvax) 0.5mL >6mon (ccIIV4) 05/05/2020,07/02/2019 Pneumococcal Conjugate PCV13 07/02/2019 Pneumococcal Polysaccharide PPSV23 06/03/2020 Shingrix Vaccine (Zoster Recombinant) 05/04/2021 ,02/06/2021 Tdap 03/23/2014 Zostavax (Zoster Live) 04/24/2015 Family History Medical History Relation Name Comments Colon polyps Father Relation Name Status Comments Father Social History Tobacco Use Types Packs/Day Years Used Date Smoking Tobacco: Never Smokeless Tobacco: Never Alcohol Use Standard Drinks/Week Comments Yes 3 (1 standard drink = 0.6 oz pur e alcohol) Sex and Gender Information Value Date Recorded Sex Assigned at Male 06/18/2018 9:53 AM EST Gender Identity Male 06/23/2018 8:39 AM EST Sexual Orientation Straight 06/23/2018 8: 39 AM EST Job Start Date Occupation Industry Not on file Not on file Not on file Last Filed Vital Signs Vital Sign Reading Time Taken Comments Blood Pressure 128/74 06/16/2021 9:17 AM EST Pulse 59 06/16/2021 9:17 AM EST Temperature 36.3 C (97.4 F) 06/17/2020 12:30 PM EST Respiratory Rate 12 06/17/2020 1:06 PM EST Oxygen Saturation 98% 06/17/2020 12:45 PM EST Inhaled Oxygen Concentration - - Weight 79.8 kg (176 lb) 06/16/2021 9:17 AM EST Height 175.3 cm (5' 9 ) 06/16/2021 9:17 AM EST Body Mass Index 25.99 06/16/2021 9:17 AM EST Plan of Treatment Health Maintenance Due Date Last Done Comments Depression Screening 06/16/2022 06/16/2021, 06/16/2021, 06/03/2020, Additional history exists Fall Risk Assessment 06/16/2022 06/16/2021, 06/16/2021, 06/03/2020, Additional history exists Preventative Health Evaluation 06/16/2022 06/16/2021, 06/16/2021, 06/03/2020, Additional history exists DTap / Tdap / Td (2 - Td or Tdap) 03/23/2024 03/23/2014 COVID-19 Vaccine ( season) 2024 06/05/2021, 10/21/2020, 09/15/2020 Influenza Vaccine (Season Ended) 2025 06/16/2021, 05/05/2020, 07/02/2019, Additional history exists Colon Cancer Screening (Colonoscopy) 09/12/2025 09/12/2020, 06/13/2017 RSV Adult > 60+ Yrs or (1 - 1-dose 75+ series) 2028 Hepatitis C Screening Completed 06/06/2018 Pneumococcal Vaccine Completed 06/03/2020, 07/02/20 Shingrix-Zoster Vaccine Completed 05/04/2021, 02/06 Hepatitis B Vaccines Aged Out No long er eligible based on patient's age to complete this topic RSV Ped < 20 months Aged Out No longe r eligible based on patient's age to complete this topic Medical Devices Implanted Type Area Sexual Health Physician Device Identifier Shelf Expiration Date Model / Serial / Lot Cement Palacos R [facility] - [id number] - [id number] Implanted:Qty: 1 on 06/23/2018 by [place]verria [place] [facility] [place] Right: Knee [employer] 10/26/2021 [id number] / / [id number] Cr Femoral Component Implanted:Qty: 1 on 06/23/2018 by Kee Echeverria MD [place] [facility] [place] [facility] Right: Knee 10/28/2022 / / [id number] [place] Cr Knee Ultra Cs Tb Insert Size 5 14mm - [id number] - [id number] Implanted:Qty: 1 on 06/23/2018 by Kee Echeverria [place] [facility] [facility] Right: Knee [employer] 03/13/2023 [id number] / / [id number] [place] Knee Tb Baseplate Cemnt Non Prous Size 5 Rt - [id number] - [id number] Implanted:Qty: 1 on 06/23/2018 by Kee Echeverria MD [place] [facility] [place] [facility] Right: Knee [employer] 04/14/2023 [id number] / / [id number] [place] Knee Retain Alden Congruent Or Ultra Insrt Prmry Tb Bspl - [id number] - [id number] Implanted:Qty: 1 on 06/23/2018 by Kee Echeverria [place] [facility] Right: Knee [employer] 03/28/2023 [id number] / / [id number] [place] Knee 32mm Dome Patella 8mm Thickness - [id number] - [id number] Implanted:Qty: 1 on 06/23/2018 by Kee Echeverria [place] [facility] Right: Knee [employer] 09/19/2022 [id number] / / [id number] Mesh 3dmax Large 6x4in Nonabs Patch Preformed Polypropylene - [id number] - [id number] Implanted:Qty: 1 on 06/17/2020 by Baltazar Morgan MD [place] [facility] Right: Groin [employer] 01/23/2025 [id number] / / [id number] Advance Directives For more information, please contact: [phone] Latest Code Status on File Code Status Date Activated Date Inactivated Comments Full Code 08/20/2018 5:32 AM 08/20/2018 6:01 PM This code status was ascertained in the following way: per chart Code Status History Code Status Date Activated Date Inactivated Comments Full Code 06/23/2018 8:07 AM 06/24/2018 6:01 PM Thi s code status was ascertained in the following way: per chart Full Code 06/23/2018 7:16 AM 06/23/2018 8:07 AM Thi s code status was ascertained in the following way: discussion with healthcare credit representative . Care Teams Raking Machine Operator Relationship Specialty Start Date End Date Kee Still MD PCP - General Internal Medicine 03/24/15
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
[2025-01-20 16:52] VITALS: BMI 24.5
--- NOTE | 2025-01-20 17:27 | PHA.MEDREC ---
Addendum entered by Sarah Adamson RP 01/20/25 17:49: reviewed by [facility] Original Note: Pharmacy Consult ? Medication Reconciliation Pharmacy has completed the medication reconciliation. Spoke with pt and he confirmed he is still taking Rosuvastatin 10mg tabs and states he went and saw his PCP in February and he Ok'd the Pt to take it 1/2 tab (5mg) QD and states he has been taking it like that; I called pt pharmacy ([facility]) to confirm if that changed and they confirmed the pt last picked up the Rosuvastatin on 07/13 for 90 days but there is no note or updated medication from the pt Dr that the pt no cuts it in half.
[2025-01-20 19:50] VITALS: BP 151/93; PULSE 72; RESP 16; TEMP 37.3; O2SAT 94
[2025-01-20] MEDS: Acetaminophen 325 MG TABLET 650 MG PO (20:01)
[2025-01-20] MEDS: Docusate Sodium 100 MG CAPSULE PO (20:01)
[2025-01-20] MEDS: 0.9 % Sodium Chloride Flush 3 ML SYRINGE IVFLUSH (20:01)
[2025-01-20] MEDS: Melatonin 3 MG TABLET 6 MG PO (21:31)
[2025-01-21] VITALS (10 sets, daily range): BP systolic 97–149; BP diastolic 57–82; PULSE 52–62; RESP 14–18; TEMP 36.6–37.3; O2SAT 92–98
[2025-01-21 06:35] LABS: Alanine Aminotransferase 17 U/L (0-40); Albumin Level 3.7 g/dL (3.5-5.0); Alkaline Phosphatase 42 U/L (39-117); Anion Gap 12 (12-20); Aspartate Amino Transferase 19 U/L (5-37); Bilirubin Total 0.6 mg/dL (0.0-1.0); Blood Urea Nitrogen 12 mg/dL (9-16); Calcium 8.8 mg/dL (8.4-10.2); Carbon Dioxide 27 mmol/L (22-29); Chloride 103 mmol/L (96-108); Creatinine Clr Calc Pharmacy 69.1; Estimated Glomerular Filt Rate > 60; Glucose Random 93 mg/dL (60-115); Potassium 4.2 mmol/L (3.3-5.1); Sodium 138 mmol/L (135-145)
[2025-01-21] MEDS: 0.9 % Sodium Chloride Flush 3 ML SYRINGE IVFLUSH ×3 (07:53→19:23)
[2025-01-21] MEDS: Docusate Sodium 100 MG CAPSULE PO ×2 (07:54→19:23)
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
--- NOTE | 2025-01-21 11:24 | MHC.CM.PN ---
IMM delivered. Patient lives in a home w/ his and mother in law. Functionally independent at baseline. Denies use of services or DME. PCP Silviano Daley MD States he has an HCP listing his , Cristina, as HCA. Copy requested - he is not sure where he keeps it and declines to complete a new one. DP: Will need post op PT eval. Patient is not open to STR and goal is home w/ services. No preference to agency. Referrals sent via [facility]. will transport home on dc. CM will continue to follow.
--- NOTE | 2025-01-21 16:26 | MHC.SHP ---
Pre-Procedural Eval Section A - 24 Hr Update-Section A only Date of Service: 01/21/25 The patient is an INPATIENT: Yes Changes since office visit: No Cold of Flu in the past 2 weeks, No New Medical Problems, No Changes in Medication and No Patient answered all questions The patient has been examined within 24 hours of the surgical procedure. The History & Physical has been completed within 30 days and I have reviewed it.: Yes Section B - Complete if H&P > 30 days Chief Complaint: Fall, hip fracture Allergies: Allergies Allergy/AdvReac Type Severity Reaction Status Date / Time No Known Allergies Allergy Verified 01/20/25 11:36 Plan I have reviewed the history and physical and performed a pertinent physical examination on my patient. No changes have occurred unless specified. Time Spent With Patient Time: Total time managing care of this patient today ____ minutes.
--- NOTE | 2025-01-21 17:02 | P.CONAN_ITS ---
HPI - Anesthesia Eval Consult details Narrative: 69 yo M presenting for right hip percutaneous pinning PMFSH Active Problems Active Problems: All Active Problems (Updated 01/20/25 @ 18:05 by SHIRLEY Xie) Fall (Acute) Closed fracture of femur, neck (Acute) Fracture of femoral neck, right, closed (Acute) Closed right hip fracture (Acute) Elevated blood pressure reading (Acute) Pre-diabetes (Acute) Eczema (Acute) Screening for prostate cancer (Acute) Screening for colon cancer (Acute) Elevated fasting glucose (Acute) Adult general medical exam (Acute) Discomfort of left ear (Acute) Hyperlipidemia (Acute) Laboratory exam ordered as part of routine general medical examination (Acute) Past Medical History Medical History No pertinent past medical history Family History Family History Mother Pacemaker Family history of problems with anesthesia: No Surgical History Surgical History History of total right knee replacement History of left hip replacement History of Problems with Anesthesia: No Social History Social History Household Members: Spouse and Family Household Members Other:: mother in law Both parents involved: No Caregiver staying overnight: No Housing: House Are you a primary child care associate to a significant other at home: No Do you presently have visiting nurse or other home services: No 75 years or older and lives alone: No Unable to assess alcohol history related to: Unknown Alcohol intake: current Patient Tobacco Use Status: Never used Tobacco e-Cigarette/Vaping Use: Never Used service: No Current occupational status: retired Cognitive needs: No Hearing needs: No Vision needs: No Meds Allergies Allergy/AdvReac Type Severity Reaction Status Date / Time No Known Allergies Allergy Verified 01/20/25 11:36 Active Medications: Current Medications Acetaminophen (Acetaminophen 325 Mg Tablet) 650 mg PO Q6H PRN PRN Reason: Pain, Mild 1-3,fever,headache Last Admin: 01/20/25 20:01 Dose: 650 mg Calcium Carbonate (Calcium Carbonate 750 Mg Tab.Chew) 750 mg PO Q4H PRN PRN Reason: Heartburn Docusate Sodium (Docusate Sodium 100 Mg Capsule) 100 mg PO BID [facility] Last Admin: 01/21/25 07:54 Dose: 100 mg Cefazolin Sodium/Dextrose (Ancef) 2 gm in 50 mls @ 100 mls/hr IV PREOP ONE Stop: 01/21/25 17:10 Magnesium Hydroxide (Milk Of Magnesia 30 Ml Oral.Susp) 30 ml PO DAILY PRN PRN Reason: Constipation Melatonin (Melatonin 3 Mg Tablet) 6 mg PO BEDTIME PRN PRN Reason: Insomnia Last Admin: 01/20/25 21:31 Dose: 6 mg Morphine Sulfate (Morphine Sulfate 2 Mg/Ml Cartridge) 2 mg IVPUSH Q4H PRN; Protocol PRN Reason: Pain, Severe (Pain Scale 7-10) Ondansetron HCl (Ondansetron Hcl 4 Mg/2 Ml Vial) 4 mg IVPUSH Q8H PRN PRN Reason: Nausea and Vomiting Oxycodone HCl (Oxycodone Hcl Immed Release 5 Mg Tablet) 5 mg PO Q6H PRN PRN Reason: Pain, Moderate(Pain Scale 4-6) Polyethylene Glycol (Polyethylene Glycol 3350 17 Gm Powd.Pack) 17 gm PO DAILY PRN PRN Reason: Constipation Sodium Chloride (0.9 % Sodium Chloride Flush 3 Ml Syringe) 3 ml IVFLUSH QSHIFT [facility] Last Admin: 01/21/25 15:25 Dose: 3 ml Home Medications ?Medication ?Instructions ?Recorded ?Confirmed ?Last Taken ?Type ibuprofen 200 mg tablet 400 mg PO Q6H PRN Pain 01/2001/20/25 Unknown History melatonin 3 mg tablet 3 mg PO BEDTIME PRN Sleep 01/20/25 Unknown History rosuvastatin 10 mg tablet 5 mg PO BEDTIME 01/20/2501/20/25 History Exam Exam Date and Time: 01/21/35 1640 Height,Weight and Vital Signs: Height 5 ft 9 in Weight 75.2 kg Last Vital Signs Temp 99.2 F 01/21/25 16:35 Pulse 62 01/21/25 16:35 Resp 17 01/21/25 16:35 BP 126/82 01/21/25 16:35 Pulse Ox 97 01/21/25 16:35 O2 Del Method Room Air 01/21/25 16:35 Pertinent Lab Results Pertinent Lab Results: Laboratory Tests 01/20/25 01/20/2501/21/25 13:51 14:14 05:05 WBC 5.3 RBC 4.40 L Hgb 14.1 Hct 41.4 L MCV 94.1 MCH 32.0 MCHC 34.1 RDW 13.2 Plt Count 147 L MPV 9.6 Immature Gran % (Auto) 0.2 Neut % (Auto) 70.5 Lymph % (Auto) 15.7 L [place] % (Auto) 9.6 Eos % (Auto) 3.2 Baso % (Auto) 0.8 Lymph # (Auto) 0.8 L [place] # (Auto) 0.5 Eos # (Auto) 0.2 Baso # (Auto) 0.0 Abs Immat Gran (auto) 0.01 Absolute Neuts (auto) 3.7 Absolute Nucleated RBC 0.000 Nucleated RBC % (auto) 0.0 Hold Purple Top SEE NOTE Sodium 139 138 Potassium 4.6 4.2 Chloride 105 103 Carbon Dioxide 27 27 Anion Gap 12 12 BUN 11 12 Creatinine 0.93 0.98 Estim Creat Clear Calc 72.8 69.1 Estimated GFR > 60 > 60 Random Glucose 93 93 Calcium 9.3 8.8 Total Bilirubin 1.0 0.6 AST 23 19 ALT 21 17 Alkaline Phosphatase 47 42 Total Protein 6.7 6.0 L Albumin 4.1 3.7 Blood Type O Positive Antibody Screen NEGATIVE Airway Mallampati Class: I TM Dist: >3cm Neck ROM: Full Loose/Missing/Broken Teeth: No (patient denies any loose or broken teeth) Heart: S1S2 Lungs: CTAB Assessment and Plan Assessment Anesthesia Assessment: Anesthesia Plan Discussed and Chart Reviewed Final Anesthetic Review Family History of Problems with Anesthesia: No History of Problems with Anesthesia: No NPO: Yes ASA Class: II Final Preanesthetic Review: No Changes in Pt Med Stat, Meds/Allgs Chart Reviewed, Consent Obtained/Reviewed and Anes Risks/Benef Reviewed Patient Risk: Low Procedure Risk: Low Anesthetic Plan Anesthetic Plan: GA and Agree w/ Assess. and Plan Disposition: Standard PACU
--- NOTE | 2025-01-21 17:19 | P.BOP_ITS ---
Brief Operative Note Date of Service: 01/21/25 Pre-op diagnosis: Valgus impacted right femoral neck fracture Post-op diagnosis: same Procedure: CRPP right fem neck Implants: [place] 8.0 partially threaded cannulated screws x 3 Surgeon: Ty Mahajan MD Anesthesia: GETA and local Was an Senior Medical Transcriptionist used for this Procedure?: No Estimated blood loss (mL): 20 IV fluids (mL): 500 Pathology: none sent Condition: stable Disposition: PACU
[2025-01-21] MEDS: ceFAZolin Sodium/Dextrose,Iso 2 GM/50 ML PIGGYBACK IV (23:12)
[2025-01-22 03:19] VITALS: BP 127/77; PULSE 60; RESP 16; TEMP 37.2; O2SAT 97
[2025-01-22 07:31] VITALS: BP 155/84; PULSE 53; RESP 17; TEMP 37.2; O2SAT 94
[2025-01-22 08:19] LABS: Hematocrit 41.1 % (42.0-52.0); Hemoglobin 13.9 g/dl (14.0-18.0); Mean Corpuscular HGB Conc 33.8 g/dl (31.0-36.0); Mean Corpuscular Hemoglobin 31.8 pg (27.0-33.0); Mean Corpuscular Volume 94.1 fL (80.0-98.0); Mean Platelet Volume 9.6 fL (9.4-12.4); Platelet Count 158 X10*3/uL (160-400); Red Blood Count 4.37 X10*6/uL (4.60-5.80); Red Cell Distribution Width 12.9 % (11.0-16.0); White Blood Count 6.9 X10*3/uL (4.8-10.8)
[2025-01-22 08:34] LABS: Anion Gap 11 (12-20); Blood Urea Nitrogen 16 mg/dL (9-16); Calcium 9.6 mg/dL (8.4-10.2); Carbon Dioxide 29 mmol/L (22-29); Chloride 102 mmol/L (96-108); Creatinine Clr Calc Pharmacy 78.7; Estimated Glomerular Filt Rate > 60; Glucose Random 105 mg/dL (60-115); Potassium 4.3 mmol/L (3.3-5.1); Sodium 138 mmol/L (135-145)
[2025-01-22] MEDS: Docusate Sodium 100 MG CAPSULE PO (08:46)
[2025-01-22] MEDS: 0.9 % Sodium Chloride Flush 3 ML SYRINGE IVFLUSH (08:46)
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
--- NOTE | 2025-01-22 08:55 | PM.PNORT ---
Subjective Subjective Date of Service: 01/22/25 Interval history: Postop day 1 status post CRPP of right hip Patient resting comfortably in bed this morning Pain well managed No acute events overnight No other acute complaints or concerns at this time Physical Exam Vital Signs: Vital Signs: Last Vital Signs Temp 98.9 F 01/22/25 07:31 Pulse 53 01/22/25 07:31 Resp 17 01/22/25 07:31 BP 155/84 H 01/22/25 07:31 Pulse Ox 94 01/22/25 07:31 O2 Del Method Room Air 01/22/25 07:31 O2 Flow Rate 5 01/21/25 17:33 BMI result Body Mass Index 24.5 Extrem: Other: Dressing on right hip clean, dry, intact No evidence of surrounding erythema, ecchymosis No evidence of infection Patient is able to flex and extend the digits of the right foot without difficulty Compartments soft, nontender Distal sensation intact Capillary refill brisk Procedures Date of Service Date of Service: 01/22/25 Progress Note: A&P Assessment and plan (1) Fracture of femoral neck, right, closed: Status: Acute Plan Status post CRPP of right hip Continue pain management Begin PT/OT Begin ASA for DVT prophylaxis Weight-bearing as tolerated with walker Dispo planning-PT/OT, pain management, medical clearance Time Spent With Patient Time: Total time managing care of this patient today ____ minutes. Quality Stroke Does the patient have a stroke diagnosis?: No VTE Prior VTE?: No VTE Risk Level:: Medical - moderate - high VTE Device Contraindication: N/A - Device Ordered VTE Drug Contraindication: N/A - Med Ordered
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
--- NOTE | 2025-01-22 09:15 | HO.POSTANES ---
Post Anesthesia Evaluation Post Anesthesia Evaluation Date of Service: 01/22/25 Vital Signs: Vital Signs Temp Pulse Resp BP Pulse Ox O2 Del Method 01/22/25 07:31 98.9 F 53 17 155/84 H 94 Room Air 01/22/25 03:19 99 F 60 16 127/77 97 Room Air Anesthesia: General LMA Mental Status: Awake Pain Control: Satisfactory Nausea/Vomiting: None Hydration: Adequate Anesthesia-Related Issues: No Anes. Related Issues
[2025-01-22 10:41] VITALS: BP 155/84; PULSE 53; O2SAT 94
[2025-01-22] MEDS: Atorvastatin Calcium 20 MG TABLET PO (11:00)
--- NOTE | 2025-01-22 11:39 | P.OP_ITS ---
Operative Note Operative Note Date of Service: 01/21/25 Narrative: Date of Service: 01/21/25 Pre-op diagnosis: Valgus impacted right femoral neck fracture Post-op diagnosis: same Procedure: En Situ Percutaneous Pinning right fem neck Implants: [place] 8.0 partially threaded cannulated screws x 3 Surgeon: Ty Mahajan MD Anesthesia: GETA and local Was an Field Software Engineer used for this Procedure?: No Estimated blood loss (mL): 20 IV fluids (mL): 500 Pathology: none sent Condition: stable Disposition: PACU Procedure in detail:? Patient was brought to the operating room and prepped and draped in standard sterile fashion.? Time-out was called to identify proper site procedure proper s urgeon and IV antibiotics per weight were administered.? He was positioned on the fracture table with slight internal rotation? and biplanar fluoroscopy confirmed a valgus impacted fracture. I did not attempt to reduce this. The alignment was adequate.? I then made a stab incision at the level of the lesser. I then placed 3 k-wires in a inverted triangle configuration through the femoral neck and into the femoral head. I used biplanar fluoro to confirm screw position on the AP and lateral projection. I was satisfied with the position of the k- wires I measured and then drilled and measured three 8.0 partially threaded cancellous screws over the wires. I was satisfied with the fracture reduction and screw position. I copiously irrigated closed with absorbable sutures reji and injected 30 mL of into the area of the incisions.? Patient was placed in sterile dressing awakened from anesthesia brought to recovery room stable condition there were no known complications.
--- NOTE | 2025-01-22 11:45 | MHC.CM.PN ---
Addendum entered by Kinsey Ospina 01/22/25 14:31: [facility] declined the patient due to Staffing issues. [facility] has accepted the patient. Original Note: IMM01/21/25 Patient is discharged today. [facility], [place] branch, has accepted the patient for home services. DC information available in Draft form at this time, has been sent to the agency. Patient has arranged for transportation home.
--- NOTE | 2025-01-22 12:12 | W.MHC.F2F ---
Service Date Service Date: 01/22/25 Encounter Date of encounter: 01/22/25 Reasons for Services Signs and symptoms assessed: unsteady gait due to hip fracture and surgeryLuis Patel Reason for physical therapy: therapeutic exercises, restore joint function and gait/transfer training Reason for occupational therapy: therapeutic exercises, restore joint function and gait/transfer training Homebound: Leaving the home is medically contraindicated at this time without the asist of a device and/or another person due th the listed conditions above and below. Reason homebound: unsteady gait / fall risk and fall risk related to blood pressure changes Homebound supporting statement: homebound due to shortness hip fracture that was just repaired, limiting ambulation and therefore needs the assitance of another person Certification: Based on the above findings, I certify that this patient is confined to the home and needs intermittent senior living care, physical therapy and/or speech therapy, or continues to need occupational therapy. The patient is under my care, and I have initiated the establishment of the plan of care. The patient will be followed by a physician who will periodically review the plan of care. Time Spent With Patient Time: Total time managing care of this patient today ____ minutes.
== END 2025-01-22 13:47 | disposition home health service (06) | DRG 482 ==
LOC: HO.ED 14:52 → HO.EDOVER 14:54 → HO.S3 16:06
PROVIDERS: Orthopaedic Surgery; Physician Assistant Medical; Admitting Provider Student in an Organized Health Care Education/Training Program; Emergency Provider Emergency Medicine; PCP Family Medicine; Visit Provider Internal Medicine
PROC: 0QS634Z Reposition Right Upper Femur with Internal Fixation Device, Percutaneous Approach (ICD-10-PCS; principal; 2025-01-21 15:50)
DX: S72.001A Fracture of unspecified part of neck of right femur, initial encounter for closed fracture (principal); V19.9XXA Pedal cyclist (driver) (passenger) injured in unspecified traffic accident, initial encounter; E78.5 Hyperlipidemia, unspecified; Z96.642 Presence of left artificial hip joint; Z96.651 Presence of right artificial knee joint; Z79.899 Other long term (current) drug therapy
CPT/HCPCS: 36415; 71045; 73110; 73120; 73502; 73560; 80048; 80053; 85025; 85027; 86850; 86900; 86901; 93005; 97162; 97165; 99285; C1713; J0131; J0690; J1100; J2003; J2405; J2704; J2795; J3010

== ENCOUNTER → 2025-01-20 11:35 | Outpatient (BNV) | payer OTHER, SELFPAY | PROVIDERS: PCP Family Medicine; Visit Provider Radiology Diagnostic Radiology | DX: Z01.810 Encounter for preprocedural cardiovascular examination (principal); S72.001A Fracture of unspecified part of neck of right femur, initial encounter for closed fracture; M19.011 Primary osteoarthritis, right shoulder; M19.012 Primary osteoarthritis, left shoulder; S62.90XA Unspecified fracture of unspecified hand, initial encounter for closed fracture; S69.91XA Unspecified injury of right wrist, hand and finger(s), initial encounter; M25.531 Pain in right wrist; M79.641 Pain in right hand; M25.561 Pain in right knee; S80.911A Unspecified superficial injury of right knee, initial encounter; Z96.651 Presence of right artificial knee joint | CPT/HCPCS: 71045; 73110; 73120; 73502; 73560 ==

== ENCOUNTER → 2025-01-20 13:40 | Outpatient (BNV) | payer OTHER, SELFPAY | PROVIDERS: Admitting Provider Student in an Organized Health Care Education/Training Program; Emergency Provider Emergency Medicine; PCP Family Medicine; Visit Provider Internal Medicine | DX: R00.1 Bradycardia, unspecified (principal) | CPT/HCPCS: 93010 ==

== ENCOUNTER → 2025-01-20 14:53 | Outpatient (BNV) | payer OTHER, SELFPAY | PROVIDERS: Admitting Provider Student in an Organized Health Care Education/Training Program; Emergency Provider Emergency Medicine; PCP Family Medicine; Visit Provider Internal Medicine | DX: S72.001A Fracture of unspecified part of neck of right femur, initial encounter for closed fracture (principal) | CPT/HCPCS: 99232; G0180 ==

== ENCOUNTER → 2025-01-20 14:53 | Outpatient (BNV) | payer OTHER, SELFPAY | PROVIDERS: Admitting Provider Student in an Organized Health Care Education/Training Program; Emergency Provider Emergency Medicine; PCP Family Medicine | DX: S72.001A Fracture of unspecified part of neck of right femur, initial encounter for closed fracture (principal) | CPT/HCPCS: 99233 ==

== ENCOUNTER 2025-02-02 09:47 | Outpatient (AMB) | payer MEDICARE, SELFPAY ==
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
--- OUTSIDE RECORDS SUMMARY | 2025-02-02 10:25 | XMS_ITS | Clinical Summary ---
Author Organization [facility] it Address [address] [place] [address] Care Team Providers Care Pipe Or Steam Fitter Furnace Installer Name Role Phone Kee Still MD Primary Care Provider [phone] Immunizations Name Administration Dates Next Due Pfizer SARS-CoV-2 COVID-19, mRNA, LNP-S, preservative free 09/15/2020 Surgical History Surgery Date Site/Laterality Comments JOINT REPLACEMENT PROCEDURE:JOINT REPLACEMENT HERNIA REPAIR PROCEDURE:HERNIA REPAIR COLONOSCOPY PROCEDURE:COLONOSCOPY MUSCLE REPAIR 08/20/2018 Right PROCEDURE:REPAIR QUADRICEPS / HAMSTRING MUSCLE;COMMENT:Procedure: REPAIR QUADRICEPS MUSCLE & RETINACULAR RECLOSURE; Surgeon: Kee Echeverria MD; Location: [facility] ([facility]); Service: Orthopedics; Laterality: Right; TOTAL KNEE ARTHROPLASTY 06/23/2018 Right PROCEDURE:TOTAL KNEE ARTHROPLASTY;COMMENT:Procedure: REPLACEMENT TOTAL KNEE WITH NAVIGATION; Surgeon: Kee Echeverria MD; Location: [facility]; Service: Orthopedics; Laterality: Right; KNEE SURGERY PROCEDURE:KNEE SURGERY TOTAL HIP ARTHROPLASTY PROCEDURE:TOTAL HIP ARTHROPLASTY;COMMENT:lt HERNIA REPAIR 06/17/2020 Right PROCEDURE:INGUINAL HERNIA REPAIR;COMMENT:Procedure: LAPAROSCOPY RIGHT REPAIR HERNIA INGUINAL; Surgeon: Baltazar Morgan MD; Location: [facility] MAIN OPERATING ROOM; Service: General; Laterality: Right; Medical History Medical History Date Comments Arthritis DX:Arthritis Anesthesia DX:Anesthesia;CO MMENT:SLOW TO WAKE Osteoarthritis DX:Osteoarthriti s Colon polyp DX:Colon polyp Family History Medical History Relation Name Comments Colon polyps Father Relation Name Status Comments Father Social History Tobacco Use Types Packs/Day Years Used Date Smoking Tobacco: Never Smokeless Tobacco: Never Alcohol Use Standard Drinks/Week Comments Yes 3 (1 standard drink = 0.6 oz pur e alcohol) Sex and Gender Information Value Date Recorded Sex Assigned at Not on file Legal Sex Male 12:32 AM EST Gender Identity Not on file Sexual Orientation Not on file Obstetrics History Plan of Treatment Health Maintenance Due Date Last Done Comments DTaP,Tdap,and Td Vaccines (2 - Td or Tdap) 03/23/2024 03/23/2014 COVID-19 Vaccine ( - season) 2024 06/05/2021, 10/21/2020, 09/15/2020 Influenza Vaccine (#1) 2025 , 05/05/2020, 07/02/2019, Additional history exists RSV Immunization Adult Patients (1 - 1-dose 75+ series) 2028 Pneumococcal Vaccine: 50+ Years Completed 06/03/2020, 07/02/2019 Zoster Vaccines Completed 05/04/2021, 01/26, 04/24/2015 HIB Vaccines Aged Out No longer eligi ble based on patient's age to complete this topic HPV Vaccines Aged Out No longer eligi ble based on patient's age to complete this topic Hepatitis A Vaccines Aged Out No long er eligible based on patient's age to complete this topic Hepatitis B Vaccines Aged Out No long er eligible based on patient's age to complete this topic IPV Vaccines Aged Out No longer eligi ble based on patient's age to complete this topic MMR Vaccines Aged Out No longer eligi ble based on patient's age to complete this topic Meningococcal ACWY Vaccine Aged Out N o longer eligible based on patient's age to complete this topic Meningococcal B Vaccine Aged Out No l onger eligible based on patient's age to complete this topic RSV Immunization Patients Under 20 months Aged Out No longer eligible based on patient's age to complete this topic Varicella Vaccines Aged Out No longer eligible based on patient's age to complete this topic Medical Devices Implanted Type Area Chemical Dependency Professional Device Identifier Shelf Expiration Date Model / Serial / Lot Cement Palacos R Bone 40gm - [id number] Implanted:Qty: 1 on 06/23/2018 by Kee Echeverria MD Right: Knee [employer] K[employer] 10/26/2021 [id number] / / [id number] Cr Femoral Component Implanted:Qty: 1 on 06/23/2018 by Kee Echeverria MD Right: Knee 10/28/2022 / / [id number] [place] Cr Knee Ultra Cs Tb Insert Size 5 14mm - [id number] Implanted:Qty: 1 on 06/23/2018 by Kee Echeverria MD Right: Knee [employer] 03/13/2023 SURENDRA-[id number] / / [id number] [place] Knee Tb Baseplate Cemnt Non Prous Size 5 Rt - [id number] Implanted:Qty: 1 on 06/23/2018 by Kee Echeverria MD Right: Knee [employer] 04/14/2023 SURENDRA-2205R / / [id number] [place] Knee Retain [place] Congruent Or Ultra Insrt Prmry Tb Bspl - [id number] Implanted:Qty: 1 on 06/23/2018 by Kee Echeverria MD Right: Knee [employer] 03/28/2023 SURENDRA-[id number] / / [id number] [place] Knee 32mm Dome Patella 8mm Thickness - [id number] Implanted:Qty: 1 on 06/23/2018 by Kee Echeverria MD Right: Knee [employer] 09/19/2022 -[id number] / / [id number] Mesh 3dmax Large 6x4in Nonabs Patch Preformed Polypropylene - [id number] Implanted:Qty: 1 on 06/17/2020 by Baltazar Morgan MD Right: Groin CR BARD - [employer] 01/23/2025 [id number] / / [id number] Care Teams Pipe Or Steam Fitter Furnace Installer Relationship Specialty Start Date End Date Kee Still MD PCP - General Internal Medicine 03/24/15
--- OUTSIDE RECORDS SUMMARY | 2025-02-02 10:25 | XMS_ITS | Clinical Summary ---
Author Organization [facility] Address [address] [place] [address] Care Team Providers Care Caster Operator Name Role Phone Kee Still MD Primary Care Provider [phone] Allergies Active Allergy Reactions Criticality Noted Date [...] 2025 , 05/05/2020, 07/02/2019, Additional history exists Colon Cancer [...] this topic Medical Devices Implanted Type Area Crisis Therapist Device Identifier Shelf Expiration Date Model / Serial / Lot Cement Palacos R Bone [facility] - [id number] - [id number] Implanted:Qty: 1 on 06/23/2018 by Kee Echeverria MD [place] [facility] Right: Knee [employer] 10/26/2021 [id number] / / [id number] Cr Femoral Component Implanted:Qty: 1 on 06/23/2018 by Kee Echeverria MD at [facility] Right: Knee 10/28/2022 / / [id number] [place] Cr Knee Ultra Cs Tb Insert Size 5 14mm - [id number] - [id number] Implanted:Qty: 1 on 06/23/2018 by Kee Echeverria MD at [facility] Right: Knee [employer] 03/13/2023 SURENDRA-[id number] / / [id number] [place] Knee Tb Baseplate Cemnt Non Prous Size 5 Rt - [id number] - [id number] Implanted:Qty: 1 on 06/23/2018 by Kee Echeverria MD at [facility] Right: Knee [employer] 04/14/2023 SURENDRA-[id number] / / [id number] [place] Knee Retain [place] Congruent Or Ultra Insrt Prmry Tb Bspl - [id number] - [id number] Implanted:Qty: 1 on 06/23/2018 by Kee Echeverria MD at [facility] Right: Knee [employer] 03/28/2023 SURENDRA-67570 / / [id number] [place] Knee 32mm Dome Patella 8mm Thickness - [id number] - [id number] Implanted:Qty: 1 on 06/23/2018 by Kee Echeverria MD at [facility] Right: Knee [employer] 09/19/2022 SURENDRA-54469 / / [id number] Mesh 3dmax Large 6x4in Nonabs Patch Preformed Polypropylene - [id number] - [id number] Implanted:Qty: 1 on 06/17/2020 by Baltazar Morgan MD at [facility] Right: Groin [employer] 01/23/2025 [id number] / / [id number] Advance Directives For more information, please contact: [phone] Latest Code Status on File Code Status [...] in the following way: discussion with healthcare licensing representative . Care Teams Caster Operator Relationship Specialty Start Date End Date Kee Still MD PCP - General Internal Medicine 03/24/15
[2025-02-02 10:26] VITALS: BP 122/74; PULSE 55; RESP 17; TEMP 36.8; O2SAT 96; BMI 24.4
== END 2025-02-02 11:21 | disposition home or self-care (01) ==
LOC: HO.HMCFM 09:48
PROVIDERS: PCP Family Medicine; Visit Provider Family Medicine
DX: S72.001A Fracture of unspecified part of neck of right femur, initial encounter for closed fracture (principal); W19.XXXA Unspecified fall, initial encounter

== ENCOUNTER → 2025-02-02 09:47 | Outpatient (BNVA) | payer MEDICARE, SELFPAY | PROVIDERS: PCP Family Medicine; Visit Provider Family Medicine | DX: S72.001D Fracture of unspecified part of neck of right femur, subsequent encounter for closed fracture with routine healing (principal); W19.XXXD Unspecified fall, subsequent encounter; H92.09 Otalgia, unspecified ear | CPT/HCPCS: 99495 ==

== ENCOUNTER 2025-02-03 13:17 | Outpatient (REF) | payer MEDICARE, SELFPAY ==
--- NOTE | ~2025-02-03 | XR_ITS ---
EXAMINATION: XR HIP 2 OR MORE VIEWS RIGHT HISTORY: M25.551 - Pain in right hip COMPARISON: Comparison is made with the prior examination dated 01/20/2025. FINDINGS: A single AP view of the pelvis and two views of the right hip are submitted. The patient is status post internal fixation of the previously seen subcapital fracture with 3 cannulated screws. Patient is status post left hip arthroplasty. There is moderate narrowing of the right hip joint space. The soft tissues are unremarkable. XR/XR hip RT min 2V IMPRESSION: Internal fixation of the previously seen subcapital fracture of the right femur. Electronically signed by: Josep Hernandez MD 02/03/2025 02:56 PM EDT
--- OUTSIDE RECORDS SUMMARY | 2025-02-03 14:07 | XMS_ITS | Clinical Summary ---
Author Organization [facility] Address [address] [place] [address] Care Team Providers Care Strategic Account Manager Name Role Phone Kee Still MD Primary [...] this topic Medical Devices Implanted Type Area Refining Machine Operator Device Identifier Shelf Expiration Date Model / Serial / Lot Cement Palacos R Bone [facility] - [id number] - [id number] Implanted:Qty: 1 on 06/23/2018 by Kee Echeverria MD at [facility] Right: Knee [employer] 10/26/2021 [id number] / / [id number] Cr Femoral Component Implanted:Qty: 1 on 06/23/2018 by Kee Echeverria MD at [facility] Right: Knee 10/28/2022 / / [id number] [place] Cr Knee Ultra Cs Tb Insert Size 5 14mm - [id number] - [id number] Implanted:Qty: 1 on 06/23/2018 by Kee Echeverria MD at [facility] Right: Knee [employer] 03/13/2023 SURENDRA-48386 / / [id number] [place] Knee Tb Baseplate Cemnt Non Prous Size 5 Rt - [id number] - [id number] Implanted:Qty: 1 on 06/23/2018 by Kee Echeverria MD at [facility] Right: Knee [employer] 04/14/2023 SURENDRA-2205R / / [id number] [place] Knee Retain [place] Congruent Or Ultra Insrt Prmry Tb Bspl - [id number] - [id number] Implanted:Qty: 1 on 06/23/2018 by Kee Echeverria MD at [facility] Right: Knee [employer] 03/28/2023 SURENDRA-14409 / / [id number] [place] Knee 32mm Dome Patella 8mm Thickness - [id number] - [id number] Implanted:Qty: 1 on 06/23/2018 by Kee Echeverria MD at [facility] Right: Knee [employer] 09/19/2022 SURENDRA-45463 / / [id number] Mesh 3dmax Large 6x4in Nonabs Patch Preformed Polypropylene - [id number] - [id number] Implanted:Qty: 1 on 06/17/2020 by Baltazar Morgan MD at [facility] Right: Groin [employer] 01/23/2025 [id number] / / [id number] Advance Directives For more information, please contact: [phone] Latest Code Status on File Code Status [...] in the following way: discussion with healthcare denial management representative . Care Teams Strategic Account Manager Relationship Specialty Start Date End Date Kee Still MD PCP - General Internal Medicine 03/24/15
--- OUTSIDE RECORDS SUMMARY | 2025-02-03 14:07 | XMS_ITS | Clinical Summary ---
Author Organization [facility] it Address [address] [place] [address] Care Team Providers Care X Ray Examiner Of Aircraft Name Role Phone Kee Still MD Primary Care Provider [phone] Immunizations Name Administration Dates Next Due Pfizer SARS-CoV-2 COVID-19, mRNA, LNP-S, preservative free 09/15/2020 Surgical History Surgery Date Site/Laterality Comments JOINT REPLACEMENT PROCEDURE:JOINT REPLACEMENT HERNIA REPAIR PROCEDURE:HERNIA REPAIR COLONOSCOPY PROCEDURE:COLONOSCOPY MUSCLE REPAIR 08/20/2018 Right PROCEDURE:REPAIR QUADRICEPS / HAMSTRING MUSCLE;COMMENT:Procedure: REPAIR QUADRICEPS MUSCLE & RETINACULAR RECLOSURE; Surgeon: Kee Echeverria MD; Location: [facility] ([facility]); Service: Orthopedics; Laterality: Right; TOTAL KNEE ARTHROPLASTY 06/23/2018 Right PROCEDURE:TOTAL KNEE ARTHROPLASTY;COMMENT:Procedure: REPLACEMENT TOTAL KNEE WITH NAVIGATION; Surgeon: Kee Echeverria MD; Location: [facility] ([facility]; Service: Orthopedics; Laterality: Right; KNEE SURGERY PROCEDURE:KNEE SURGERY TOTAL HIP ARTHROPLASTY PROCEDURE:TOTAL HIP ARTHROPLASTY;COMMENT:lt HERNIA REPAIR 06/17/2020 Right PROCEDURE:INGUINAL HERNIA REPAIR;COMMENT:Procedure: LAPAROSCOPY RIGHT REPAIR HERNIA INGUINAL; Surgeon: Baltazar Morgan MD; Location: [facility] MAIN OPERATING ROOM; Service: General; Laterality: Right; [...] this topic Medical Devices Implanted Type Area Horticultural Technical Officer Device Identifier Shelf Expiration Date Model / Serial / Lot Cement Palacos R Bone 40gm - [id number] Implanted:Qty: 1 on 06/23/2018 by Kee Echeverria MD Right: Knee [employer] KUL[employer] 10/26/2021 [id number] / / [id number] Cr Femoral Component Implanted:Qty: 1 on 06/23/2018 by Kee Echeverria MD Right: Knee 10/28/2022 / / [id number] [place] Cr Knee Ultra Cs Tb Insert Size 5 14mm - [id number] Implanted:Qty: 1 on 06/23/2018 by Kee Echeverria MD Right: Knee [employer] 03/13/2023 SURENDRA-55056 / / [id number] [place] Knee Tb Baseplate Cemnt Non Prous Size 5 Rt - [id number] Implanted:Qty: 1 on 06/23/2018 by Kee Echeverria MD Right: Knee [employer] 04/14/2023 SURENDRA-2205R / / [id number] [place] Knee Retain [place] Congruent Or Ultra Insrt Prmry Tb Bspl - [id number] Implanted:Qty: 1 on 06/23/2018 by Kee Echeverria MD Right: Knee [employer] 03/28/2023 SURENDRA-15131 / / [id number] [place] Knee 32mm Dome Patella 8mm Thickness - [id number] Implanted:Qty: 1 on 06/23/2018 by Kee Echeverria MD Right: Knee [employer] 09/19/2022 -50587 / / [id number] Mesh 3dmax Large 6x4in Nonabs Patch Preformed Polypropylene - [id number] Implanted:Qty: 1 on 06/17/2020 by Baltazar Morgan MD Right: Groin CR BARD - [employer]OL DIV 01/23/2025 [id number] / / [id number] Care Teams X Ray Examiner Of Aircraft Relationship Specialty Start Date End Date Kee Still MD PCP - General Internal Medicine 03/24/15
== END 2025-02-03 13:18 | disposition home or self-care (01) ==
LOC: HO.HOSX 13:17
PROVIDERS: Visit Provider Physician Assistant
DX: S72.011A Unspecified intracapsular fracture of right femur, initial encounter for closed fracture (principal); M25.551 Pain in right hip; Z79.899 Other long term (current) drug therapy; Z79.82 Long term (current) use of aspirin; Z96.642 Presence of left artificial hip joint
CPT/HCPCS: 73502; 99212

== ENCOUNTER 2025-02-03 14:14 | Outpatient (AMB) | payer MEDICARE, SELFPAY ==
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
[2025-02-03 14:28] VITALS: BMI 24.4
== END 2025-02-03 15:11 | disposition home or self-care (01) ==
LOC: HO.HOS 14:14
PROVIDERS: PCP Family Medicine; Visit Provider Physician Assistant
DX: S72.001A Fracture of unspecified part of neck of right femur, initial encounter for closed fracture (principal)
CPT/HCPCS: 99024

== ENCOUNTER → 2025-02-03 14:17 | Outpatient (BNV) | payer MEDICARE, SELFPAY | PROVIDERS: Visit Provider Radiology Diagnostic Radiology | DX: M25.551 Pain in right hip (principal) | CPT/HCPCS: 73502 ==

== ENCOUNTER 2025-03-01 08:23 | Outpatient (REF) | payer MEDICARE, SELFPAY ==
--- OUTSIDE RECORDS SUMMARY | 2025-03-01 08:38 | XMS_ITS | Clinical Summary ---
Author Organization [facility] Address [address] [place] [address] Care Team Providers Care Manager Payer Name Role Phone Kee Still MD Primary Care Provider [phone] Allergies Active Allergy Reactions Criticality Noted Date [...] this topic Medical Devices Implanted Type Area Vegetable Grower Device Identifier Shelf Expiration Date Model / Serial / Lot Cement Palacos R Bone [facility] - [id number] - [id number] Implanted:Qty: 1 on 06/23/2018 by Kee Echeverria MD at [facility] Right: Knee [employer] 10/26/2021 [id number] / / [id number] Cr Femoral Component Implanted:Qty: 1 on 06/23/2018 by Kee Echeverria MD at [facility] Right: Knee 10/28/2022 / / [id number] [place] Cr Knee Ultra Cs Tb Insert Size 5 14mm - [id number] - [id number] Implanted:Qty: 1 on 06/23/2018 by Kee Echeverria MD at [facility] Right: Knee [employer] 03/13/2023 [id number] / / [id number] [place] Knee Tb Baseplate Cemnt Non Prous Size 5 Rt - [id number] - [id number] Implanted:Qty: 1 on 06/23/2018 by Kee Echeverria MD at [facility] Right: Knee [employer] 04/14/2023 SURENDRA-[id number] / / [id number] [place] Knee Retain [place] Congruent Or Ultra Insrt Prmry Tb Bspl - [id number] - [id number] Implanted:Qty: 1 on 06/23/2018 by Kee Echeverria MD at [facility] Right: Knee [employer] 03/28/2023 SURENDRA-91027 / / [id number] [place] Knee 32mm Dome Patella 8mm Thickness - [id number] - [id number] Implanted:Qty: 1 on 06/23/2018 by Kee Echeverria MD at [facility] Right: Knee [employer] 09/19/2022 SURENDRA-34327 / / [id number] Mesh 3dmax Large 6x4in Nonabs Patch Preformed Polypropylene - [id number] - [id number] Implanted:Qty: 1 on 06/17/2020 by Baltazar Morgan MD at [facility] Right: Groin [employer] 01/23/2025 [id number] / / [id number] Advance Directives For more information, please contact: [phone] Latest Code Status on File Code Status [...] in the following way: discussion with healthcare customer contact representative . Care Teams Manager Payer Relationship Specialty Start Date End Date Kee Still MD PCP - General Internal Medicine 03/24/15
--- OUTSIDE RECORDS SUMMARY | 2025-03-01 08:38 | XMS_ITS | Clinical Summary ---
Author Organization [facility] it Address [address] [place] [address] Care Team Providers Care Portal Architect Name Role Phone Kee Still MD Primary Care Provider [phone] Immunizations Name Administration Dates Next Due Pfizer SARS-CoV-2 COVID-19, mRNA, LNP-S, preservative free 09/15/2020 Surgical History Surgery Date Site/Laterality Comments JOINT REPLACEMENT PROCEDURE:JOINT REPLACEMENT HERNIA REPAIR PROCEDURE:HERNIA REPAIR COLONOSCOPY PROCEDURE:COLONOSCOPY MUSCLE REPAIR 08/20/2018 Right PROCEDURE:REPAIR QUADRICEPS / HAMSTRING MUSCLE;COMMENT:Procedure: REPAIR QUADRICEPS MUSCLE & RETINACULAR RECLOSURE; Surgeon: Kee Echeverria MD; Location: [facility]); Service: Orthopedics; Laterality: Right; TOTAL KNEE ARTHROPLASTY 06/23/2018 Right PROCEDURE:TOTAL KNEE ARTHROPLASTY;COMMENT:Procedure: REPLACEMENT TOTAL KNEE WITH NAVIGATION; Surgeon: Kee Echeverria MD; Location: [facility] ([facility]); Service: Orthopedics; Laterality: Right; KNEE SURGERY PROCEDURE:KNEE [...] ( - season) 2024 06/05/2021, 10/21/2020, 09/15/2020 Depression Screening 07/29/2024 Influenza Vaccine (#1) 2025 , 05/05/2020, 07/02/2019, [...] this topic Medical Devices Implanted Type Area Media Manager Device Identifier Shelf Expiration Date Model / Serial / Lot Cement Palacos R Bone 40gm - [id number] Implanted:Qty: 1 on 06/23/2018 by Kee Echeverria MD Right: Knee [employer] 10/26/2021 [id number] / / [id number] Cr Femoral Component Implanted:Qty: 1 on 06/23/2018 by Kee Echeverria MD Right: Knee 10/28/2022 / / [id number] [place] Cr Knee Ultra Cs Tb Insert Size 5 14mm - [id number] Implanted:Qty: 1 on 06/23/2018 by Kee Echeverria MD Right: Knee [employer] 03/13/2023 SURENDRA-06119 / / [id number] [place] Knee Tb Baseplate Cemnt Non Prous Size 5 Rt - [id number] Implanted:Qty: 1 on 06/23/2018 by Kee Echeverria MD Right: Knee [employer] 04/14/2023 SURENDRA-2205R / / [id number] [place] Knee Retain [place] Congruent Or Ultra Insrt Prmry Tb Bspl - [id number] Implanted:Qty: 1 on 06/23/2018 by Kee Echeverria MD Right: Knee [employer] 03/28/2023 SURENDRA-09719 / / [id number] [place] Knee 32mm Dome Patella 8mm Thickness - [id number] Implanted:Qty: 1 on 06/23/2018 by Kee Echeverria MD Right: Knee [employer] 09/19/2022 -[id number] / / [id number] Mesh 3dmax Large 6x4in Nonabs Patch Preformed Polypropylene - [id number] Implanted:Qty: 1 on 06/17/2020 by Baltazar Morgan MD Right: Groin [employer] 01/23/2025 [id number] / / [id number] Care Teams Portal Architect Relationship Specialty Start Date End Date Kee Still MD PCP - General Internal Medicine 03/24/15
== END 2025-03-01 08:24 | disposition home or self-care (01) ==
LOC: HO.HOSX 08:23
PROVIDERS: Visit Provider Physician Assistant
DX: S72.001D Fracture of unspecified part of neck of right femur, subsequent encounter for closed fracture with routine healing (principal); Z79.82 Long term (current) use of aspirin; Z96.651 Presence of right artificial knee joint; Z96.642 Presence of left artificial hip joint; Z79.899 Other long term (current) drug therapy; X58.XXXD Exposure to other specified factors, subsequent encounter; Y93.73 Activity, racquet and hand sports
CPT/HCPCS: 99212

== ENCOUNTER 2025-03-01 10:10 | Outpatient (AMB) | payer MEDICARE, SELFPAY ==
--- NOTE | 2025-03-01 10:13 | A.OFFVIS_ITS ---
Vital Signs 03/01/25 10:21 Height 5 ft 9 in Weight 165 lb BMI 24.4 Intake Visit Reasons: f/u RT hip CRPP 01/21/25 w xrays Intake Note: David is a 69 year old male who presents today for a post operative visit of en situ percutaneous pinning right femoral neck, DOS 01/21/[address] Mahajan. At his last visit patient was instructed to follow up in office in 4-6 weeks. Patient reports he was cleared by physical therapy to start stationary cycling and has been helpful. States he is able to walk more, however this is the most difficult. He has concerns of leg length discrepancy, stating being told his gait is off. Allergies No Known Allergies Allergy (Verified 03/01/25 10:20) Medication List - Last Reconciled 03/01/25 by Tommy Grier PA-C acetaminophen (Tylenol Extra Strength) 500 mg PO Q6H PRN aspirin 325 mg PO BID 42 days melatonin 3 mg PO BEDTIME PRN rosuvastatin 5 mg PO BEDTIME HPI HPI f/u RT hip CRPP 01/21/25 w xrays: Details: 69-year-old gentleman returns to the office today 6 weeks status post right hip CRPP on 01/21/[address] Mahajan. He is doing quite well with all his activities and has no major concerns today. He does have a small limp and ambulates with a cane. He is working with physical therapy. [facility] Medical History No pertinent past medical history Surgical History History of total right knee replacement History of left hip replacement Family History Mother Pacemaker Social History Household Members: Spouse and Family Household Members Other:: mother in law Housing: House Are you a primary home health care social worker to a significant other at home: No Do you presently have visiting nurse or other home services: No Unable to assess alcohol history related to: Unknown Alcohol intake: current Patient Tobacco Use Status: Never used Tobacco e-Cigarette/Vaping Use: Never Used service: No Current occupational status: retired Cognitive needs: No Hearing needs: No Vision needs: No Review of Systems Const All systems reviewed & are unremarkable except as noted in HPI and below Physical Exam Vital Signs: BMI result Body Mass Index 24.4 Extrem Other: Right hip incision well healed. No erythema or surrounding swelling. He can perform hip flexion and range of motion without discomfort. Neurovascularly intact. Results Reviewed Results Reviewed: X-rays of the right hip obtained in the office today and reviewed by me show intact hardware with stable fracture pattern Assessment & Plan Assessment & Plan (1) Fracture of femoral neck, right, closed: Code(s): S72.001A - Fracture of unspecified part of neck of right femur, initial encounter for closed fracture Category: Medical Plan: He will continue to work with physical therapy, an order for outpatient physical therapy has been placed and he will contact them to make an appointment. I did stress the importance of avoiding impact activities such as pickleball. He is using his stationary bike. He was inquiring about using a road bike and I explained if he were to fall there could be increased risk to injury. He will see us back in 6 weeks with x-rays sooner if needed. Orders: Orders PT Evaluation and Treatment Today S72.001A - Fracture of unspecified part of neck of right femur, initial encounter for closed fracture Coding Level of Care Code Global (38025) Diagnoses Fracture of femoral neck, right, closed S72.001A
[2025-03-01 10:21] VITALS: BMI 24.4
== END 2025-03-01 10:31 | disposition home or self-care (01) ==
LOC: HO.HOS 10:11
PROVIDERS: PCP Family Medicine; Visit Provider Physician Assistant
DX: S72.001A Fracture of unspecified part of neck of right femur, initial encounter for closed fracture (principal)
CPT/HCPCS: 99024

== ENCOUNTER 2025-03-01 10:36 | Outpatient (REF) | payer MEDICARE, SELFPAY ==
--- NOTE | ~2025-03-01 | XR_ITS ---
EXAMINATION: XR HIP, RIGHT CLINICAL INFORMATION: M25.551 - Pain in right hip COMPARISON: 02/03/2025. 01/20/2025. TECHNIQUE: AP pelvis, and 2 views of the right hip. FINDINGS: No acute fracture, dislocation, or suspicious bone lesion. There are 3 compression screws within the right femoral head, fixating a healed subcapital right hip fracture. Hardware appears intact, well seated, in anatomic alignment. There are moderate osteoarthritic changes of the right hip joint. There is a left femoral head replacement in place. No complication evident. Mild degenerative changes in both SI joints. Moderate to advanced spondylosis of the lower lumbar spine. Soft tissues demonstrate 2 herniorrhaphy clips in the right inguinal region. XR/XR hip RT w PEL1V IMPRESSION: 1. Stable appearance of the ORIF right subcapital hip fracture. Electronically signed by: Rakesh Martinez MD 03/01/2025 11:10 AM EDT
== END 2025-03-01 10:37 | disposition home or self-care (01) ==
LOC: HO.XRAY 10:36
PROVIDERS: PCP Family Medicine; Visit Provider Physician Assistant
DX: M25.551 Pain in right hip (principal)
CPT/HCPCS: 73502

== ENCOUNTER → 2025-03-01 10:44 | Outpatient (BNV) | payer MEDICARE, SELFPAY | PROVIDERS: PCP Family Medicine; Visit Provider Radiology Diagnostic Radiology | DX: M16.11 Unilateral primary osteoarthritis, right hip (principal) | CPT/HCPCS: 73502 ==

== ENCOUNTER 2025-03-04 08:57 | Outpatient (REF) | payer MEDICARE, SELFPAY ==
--- OUTSIDE RECORDS SUMMARY | 2025-03-04 09:19 | XMS_ITS | Clinical Summary ---
Author Organization [facility] it Address [address] [place] [address] Care Team Providers Care Painting Machine Operator Name Role Phone Kee Still MD Primary Care Provider [phone] Immunizations Name Administration Dates Next Due Pfizer SARS-CoV-2 COVID-19, mRNA, LNP-S, preservative free 09/15/2020 Surgical History Surgery Date Site/Laterality Comments JOINT REPLACEMENT PROCEDURE:JOINT REPLACEMENT HERNIA REPAIR PROCEDURE:HERNIA REPAIR COLONOSCOPY PROCEDURE:COLONOSCOPY MUSCLE REPAIR 08/20/2018 Right PROCEDURE:REPAIR QUADRICEPS / HAMSTRING MUSCLE;COMMENT:Procedure: REPAIR QUADRICEPS MUSCLE & RETINACULAR RECLOSURE; Surgeon: Kee Echeverria MD; Location: [facility] Service: Orthopedics; Laterality: Right; TOTAL KNEE ARTHROPLASTY 06/23/2018 Right PROCEDURE:TOTAL KNEE ARTHROPLASTY;COMMENT:Procedure: REPLACEMENT TOTAL KNEE WITH NAVIGATION; Surgeon: Kee Echeverria MD; Location: [facility]; Service: Orthopedics; Laterality: Right; KNEE SURGERY PROCEDURE:KNEE SURGERY TOTAL HIP ARTHROPLASTY PROCEDURE:TOTAL HIP ARTHROPLASTY;COMMENT:lt HERNIA REPAIR 06/17/2020 Right PROCEDURE:INGUINAL HERNIA REPAIR;COMMENT:Procedure: LAPAROSCOPY RIGHT REPAIR HERNIA INGUINAL; Surgeon: Baltazar Morgan MD; Location: [facility]; Service: General; [...] this topic Medical Devices Implanted Type Area Meter Supervisor Device Identifier Shelf Expiration Date Model / Serial / Lot Cement Palacos R Bone 40gm - [id number] Implanted:Qty: 1 on 06/23/2018 by Kee Echeverria MD Right: Knee [employer] 10/26/2021 [id number] / / [id number] Cr Femoral Component Implanted:Qty: 1 on 06/23/2018 by Kee Echeverria MD Right: Knee 10/28/2022 / / [id number] [place] Cr Knee Ultra Cs Tb Insert Size 5 14mm - [id number] Implanted:Qty: 1 on 06/23/2018 by Kee Echeverria MD Right: Knee [employer] 03/13/2023 SURENDRA-94282 / / [id number] [place] Knee Tb Baseplate Cemnt Non Prous Size 5 Rt - [id number] Implanted:Qty: 1 on 06/23/2018 by Kee Echeverria MD Right: Knee [employer] 04/14/2023 SURENDRA-2205R / / [id number] [place] Knee Retain [place] Congruent Or Ultra Insrt Prmry Tb Bspl - [id number] Implanted:Qty: 1 on 06/23/2018 by Kee Echeverria MD Right: Knee [employer] 03/28/2023 SURENDRA-68077 / / [id number] [place] Knee 32mm Dome Patella 8mm Thickness - [id number] Implanted:Qty: 1 on 06/23/2018 by Kee Echeverria MD Right: Knee [employer] 09/19/2022 -31680 / / [id number] Mesh 3dmax Large 6x4in Nonabs Patch Preformed Polypropylene - [id number] Implanted:Qty: 1 on 06/17/2020 by Baltazar Morgan MD Right: Groin [employer] 01/23/2025 [id number] / / [id number] Care Teams Painting Machine Operator Relationship Specialty Start Date End Date Kee Still MD PCP - General Internal Medicine 03/24/15
--- OUTSIDE RECORDS SUMMARY | 2025-03-04 09:19 | XMS_ITS | Clinical Summary ---
Author Organization [facility] Address [address] [place] [address] Care Team Providers Care Senior Advocate Name Role Phone Kee Still MD Primary [...] this topic Medical Devices Implanted Type Area Manager Erp Device Identifier Shelf Expiration Date Model / Serial / Lot Cement Palacos R Bone [facility] - [id number] - [id number] Implanted:Qty: 1 on 06/23/2018 by Kee Echeverria MD at [facility] Right: Knee [employer] 10/26/2021 [id number] / / [id number] Cr Femoral Component Implanted:Qty: 1 on 06/23/2018 by Kee Echeverria MD at [facility] Right: Knee 10/28/2022 / / [id number] [place] Cr Knee Ultra Cs Tb Insert Size 5 14mm - [id number] - [id number] Implanted:Qty: 1 on 06/23/2018 by Kee Echeverria MD at [facility] Right: Knee [employer] 03/13/2023 SURENDRA-46214 / / [id number] [place] Knee Tb Baseplate Cemnt Non Prous Size 5 Rt - [id number] - [id number] Implanted:Qty: 1 on 06/23/2018 by Kee Echeverria MD at [facility] Right: Knee [employer] 04/14/2023 SURENDRA-2205R / / [id number] [place] Knee Retain [place] Congruent Or Ultra Insrt Prmry Tb Bspl - [id number] - [id number] Implanted:Qty: 1 on 06/23/2018 by Kee Echeverria MD at [facility] Right: Knee [employer] 03/28/2023 SURENDRA-95935 / / [id number] [place] Knee 32mm Dome Patella 8mm Thickness - [id number] - [id number] Implanted:Qty: 1 on 06/23/2018 by Kee Echeverria MD at [facility] Right: Knee [employer] 09/19/2022 SURENDRA-89505 / / [id number] Mesh 3dmax Large 6x4in Nonabs Patch Preformed Polypropylene - 722600 - [id number] Implanted:Qty: 1 on 06/17/2020 by Baltazar Morgan MD at [facility] Right: Groin [employer] 01/23/2025 [id number] / / [id number] Advance Directives For more information, please contact: [phone] Latest Code Status on File Code Status [...] in the following way: discussion with healthcare service liaison representative . Care Teams Senior Advocate Relationship Specialty Start Date End Date Kee Still MD PCP - General Internal Medicine 03/24/15
[2025-03-04 10:09] LABS: MANUAL DIFF FLAG NO
[2025-03-04 10:17] LABS: Hematocrit 37.7 % (42.0-52.0); Hemoglobin 13.0 g/dl (14.0-18.0); Imm Gran Abs Auto 0.01 X10*3/uL (0.00-0.03); Imm Gran Pct Auto 0.2 % (0.0-0.4); Lymphocytes Absolute Auto 1.4 X10*3/uL (1.2-4.9); Mean Corpuscular HGB Conc 34.5 g/dl (31.0-36.0); Mean Corpuscular Hemoglobin 31.8 pg (27.0-33.0); Mean Corpuscular Volume 92.2 fL (80.0-98.0); NRBC Abs Auto 0.000 X10*3/uL (0.0-0.012); NRBC Pct Auto 0.0 /100WBC (0.0-0.2); Platelet Count 208 X10*3/uL (160-400); Red Blood Count 4.09 X10*6/uL (4.60-5.80); White Blood Count 4.2 X10*3/uL (4.8-10.8)
[2025-03-04 10:24] LABS: Appearance Urine Clear; Glucose Urine UA Negative (Negative); PH 7.5 (5.0-9.0); Specific Gravity - Urine 1.010 (1.005-1.025)
[2025-03-04 10:52] LABS: Alanine Aminotransferase 26 U/L (0-40); Albumin Level 3.9 g/dL (3.5-5.0); Alkaline Phosphatase 67 U/L (39-117); Anion Gap 10 (12-20); Aspartate Amino Transferase 29 U/L (5-37); Blood Urea Nitrogen 11 mg/dL (9-16); Calcium 9.3 mg/dL (8.4-10.2); Carbon Dioxide 31 mmol/L (22-29); Chloride 105 mmol/L (96-108); Cholesterol 175 mg/dL (<200); Estimated Glomerular Filt Rate > 60; HDL Cholesterol 72 mg/dL (>40); Potassium 4.5 mmol/L (3.3-5.1); Sodium 141 mmol/L (135-145); Total Protein 6.6 g/dL (6.5-8.0); Triglycerides 55 mg/dL (<150)
== END 2025-03-04 08:58 | disposition home or self-care (01) ==
LOC: HO.HMGCLDS 08:57
PROVIDERS: PCP Family Medicine; Visit Provider Family Medicine
DX: Z00.00 Encounter for general adult medical examination without abnormal findings (principal); Z12.5 Encounter for screening for malignant neoplasm of prostate; I10 Essential (primary) hypertension
CPT/HCPCS: 36415; 80053; 80061; 81003; 82043; 82570; 84153; 84443; 85025

== ENCOUNTER 2025-03-12 08:48 | Outpatient (AMB) | payer OTHER, SELFPAY ==
--- NOTE | 2025-03-12 08:57 | MHC.PC.OV ---
Vital Signs 03/12/25 09:06 Height 5 ft 9 in Weight 170 lb BMI 25.1 BP 130/78 Blood Pressure Location Rt brachial Position Sitting Respiration 17 Pulse 67 Pulse Source Pulse Oximeter Temp 97.6 F Temp Source Temporal Artery Scan Pulse Oximetry (%) 97 Oxygen Delivery Method Room Air Intake Visit Reasons: CPE with f/u labs and health maint. Intake Note: David presents in the office today for his annual physical, follow up to labs and health maintenance. Allergies No Known Allergies Allergy (Verified 03/12/25 09:05) Medication List - Last Reconciled 03/12/25 by Silviano Daley MD acetaminophen (Tylenol Extra Strength) 500 mg PO Q6H PRN rosuvastatin 5 mg PO BEDTIME Tobacco use date assessed: 03/12/25 Fall risk assessment: 1 Fall in past year Last assessed Fall Risk: 03/12/25 Dental Screening Dental Screen Date: 03/12/25 Did you have a dental visit in the last 12 months?: Yes Did you have a dental problem in the last 6 months where you did not have access to dental care?: No Was dental information given to patient?: Patient has dentist HPI CPE with f/u labs and health maint. HPI Details 69 y/o male presents for a CPE with f/u labs and health maintenance. Labs drawn 03/04/25. Reviewed labs with pt. Mild anemia. Fasting glucose 103. A1c 03/12/25 5.4%. Triglycerides 55. TC 175. LDL 92. HDL 72. PSA 0.83. He is on rosuvastatin 5mg. A1c today 5.4%. HPI Comments History of Present Illness Details Documentation assistance for Silviano Daley MD, was provided by Kimo Barrera,? Lighting Adviser on 03/12/2025 at 9:34 AM EST. I, Dr. Daley, have read, observed, and verified documentation. ?? PFSH Medical History No pertinent past medical history Surgical History History of total right knee replacement History of left hip replacement Family History Mother Pacemaker Social History (Updated 03/12/25 @ 09:06 by Marion Godwin MA) Household Members: Spouse and Family Household Members Other:: mother in law Both parents involved: No Caregiver staying overnight: No Housing: House Are you a primary care management coordinator to a significant other at home: No Do you presently have visiting nurse or other home services: No 75 years or older and lives alone: No Alcohol intake: current Patient Tobacco Use Status: Never used Tobacco e-Cigarette/Vaping Use: Never Used Second Hand Smoke Exposure: No service: No Current occupational status: retired Cognitive needs: No Hearing needs: No Vision needs: No Questionnaire PHQ-9 Over the last 2 weeks, how often have you been bothered by any of the following problems? 1. Little interest or pleasure in doing things: not at all 2. Feeling down, depressed, or hopeless: not at all 3. Trouble falling or staying asleep, or sleeping too much: not at all 4. Feeling tired or having little energy: not at all 5. Poor appetite or overeating: not at all 6. Feeling bad about yourself - or that you are a failure or have let yourself or your family down: not at all 7. Trouble concentrating on things, such as reading the newspaper or watching television: not at all 8. Moving or speaking so slowly that other people could have noticed. Or the opposite - being so fidgety or restless that you have been moving around a lot more than usual: not at all 9. Thoughts that you would be better off or of hurting yourself in some way: not at all Total score: 0 Depression Screening Interpretation: Negative Depression Screening Done: Yes 01398 - PHQ-9 Billing: Yes Source: Developed by Drs. Josep King, Janet Negrete, Jax Lema and colleagues, with an educational meño from [employer]. Thrive Questionnaire Date Thrive assessed: 03/12/25 I am a: Patient What is your living situation today?: I have a steady place to live Within the past 12 months, did the food you bought not last and you didn't have the money to get more?: Never true Within the past 12 months, did you worry whether your food would run out before you got money to buy more?: Never true Do you have trouble paying for medicines?: No Do you have trouble getting transportation to medical appointments?: No Do you have trouble paying your heating and electricity bill?: No Do you have trouble taking care of your child, family member or friend?: No Do you have trouble with day-to-day activities such as bathing, preparing meals, shopping, managing finances, etc.?: No Are you currently unemployed and looking for a job?: No Are you interested in more education?: No Please select the resources that you would like help with: None Currently or been in a relationship where the following occur: No concerns reported THRIVE Score: 0 AUDIT C Alcohol Use Questionnaire (AUDIT-C) 1. How often do you have a drink containing alcohol?: 2-3 times a week 2. How many drinks containing alcohol do you have on a typical day when you are drinking?: 1 or 2 3. How often do you have six or more drinks on one occasion?: Never Total Score: 3 ALEX-7 AMB Questionnaire ALEX-7 Date ALEX - 7 assessed: 03/12/25 Feeling nervous, anxious, or on edge: 0 = Not at all Not being able to stop or control worryin = Not at all Worrying too much about different things: 0 = Not at all Trouble relaxin = Not at all Being so restless that it is hard to sit still: 0 = Not at all Becoming easily annoyed or irritable: 0 = Not at all Feeling afraid as if something awful might happen: 0 = Not at all Total ALEX-7 score (0-4 normal; 5-9 mild; 10-14 moderate; 15-21 severe): 0 Source: Developed by Drs. Josep King, Janet Negrete, Jax Lema and colleagues, with an educational meño from [employer]. ALEX-7 Assessment Billing ALEX-7 Assessment Tool: ALEX-7 Assessment 73258 Review of Systems Const Denies chills, Denies fatigue, Denies fever(s), Denies headache(s) and Denies weakness Eyes Denies change in vision ENT Denies dizziness, Denies headache(s), Denies hearing loss, Denies nasal congestion, Denies sinus pain, Denies sinus pressure and Denies sore throat Card Denies chest pain, Denies lightheadedness, Denies dyspnea and Denies other (palpitations) Resp Denies cough, Denies dyspnea and Denies wheezing GI Denies abdominal pain, Denies melena, Denies hematochezia, Denies change in bowel habits, Denies dyspepsia and Denies nausea Denies hematuria and Denies dysuria Musc Denies abnormal gait, Denies myalgias, Denies arthralgias, Denies numbness and Denies tingling Skin/Breast Denies rash, Denies unusual bruising and Denies wounds Neuro Denies abnormal gait, Denies dizziness, Denies headache(s), Denies memory loss, Denies numbness, Denies Sensory deficit (Neuro), Denies tingling and Denies weakness Psych Denies anxiety, Denies depression and Denies memory loss Endo Denies cold intolerance, Denies fatigue, Denies heat intolerance, Denies polydipsia and Denies polyuria [place]on/Lymph Denies easy bleeding and Denies easy bruising Aller/Immun Denies wheezing Physical exam (Primary Care) Vital Signs: Last Vital Signs Temp 97.6 F 03/12/25 09:06 Pulse 67 03/12/25 09:06 Resp 17 03/12/25 09:06 BP 130/78 03/12/25 09:06 Pulse Ox 97 03/12/25 09:06 Oxygen Delivery Method Room Air 03/12/25 09:06 BMI result Body Mass Index 25.1 Tobacco/Smoking Status: Tobacco use Status Tobacco use date assessed 03/12/25 03/12/25 09:10 Patient Tobacco Use Status Never used Tobacco 03/12/25 09:06 e-Cigarette/Vaping Use Never Used 03/12/25 09:06 PHQ-9: PHQ-9 Score PHQ-9: Total score 0 03/12/25 09:29 Depression Screening Interpretation: Negative Thrive Assessment: Date of Thrive Assessment Date Thrive assessed 03/12/25 03/12/25 09:03 Currently or been in a relationship where the following occur: No concerns reported Const General: no acute distress, well developed, alert and awake Nutritional Appearance: well nourished Orientation/consciousness: patient oriented x3 HENMT Head: Yes normocephalic and Yes atraumatic Ears: hearing grossly normal bilaterally and TM's normal bilaterally General nose exam: Normal external nose present and Normal nares present Mouth: Normal oral and palatal mucosa present and moist mucous membranes Teeth and gingiva: dentition normal Throat: Yes posterior oropharynx normal Eyes General: appearance normal, both eyes and all related structures Pupils: Equal, round and reactive pupils present and Pupil accommodation reflex normal EOM: EOMs intact bilaterally Neck Neck: Yes normal visual inspection, Yes no lymphadenopathy and Yes trachea midline Thyroid: Thyroid normal Carotids: no bruits Lymphatic: no lymphadenopathy noted Chest Chest palpation & inspection: normal inspection of the chest Resp Effort & Inspection: normal respiratory effort Auscultation: clear to auscultation bilaterally Cardio Rate: regular rate Rhythm: regular rhythm Heart sounds: S1 normal heart sound present, S2 normal heart sound present, no gallops, no murmurs and no rubs Bruits: no abdominal aortic bruits and no carotid bruits GI Palpation (GI): No Abdominal aortic bruit present, Soft to palpation, nontender, No hepatosplenomegaly present and No Rebound tenderness present Auscultation: normal bowel sounds General: Yes no CVA tenderness Back/Spine/Pelvis Back: no CVA tenderness Cervical Spine: cervical ROM normal and No Cervical spine tenderness Thoracic/Lumbar Spine: thoraco-lumbar ROM normal, No pain with thoraco-lumbar ROM, No thoracic spinal tenderness and No lumbar spinal tenderness Skin Lesions: no lesions Rashes: no rashes Trauma: no lacerations or abrasions Wounds: no wounds Nails: normal Neuro General: patient oriented x3 Cranial nerves: Yes Equal, round and reactive pupils present Cognition (Neuro): normal cognition Gait exam (Neuro): gait abnormal and Assisted gait required (Cane) Motor exam (neuro): 5/5 motor strength present throughout Sensory Exam: No Sensory deficit (Neuro) Deep tendon reflexes (DTR's): Right patellar reflex intensity grade: 2+ and Left patellar reflex intensity grade: 2+ Extrem General: Yes normal to inspection and No edema Psych Appearance: grossly normal Affect: normal affect Attitude: cooperative Thought process: Normal thought process present Results AMB Hemoglobin A1c AMB Hemoglobin A1c 5.4 % Last Edit by Marion Godwin MA on 03/12/25 09:19 Results Reviewed Results Reviewed: Laboratory Last Values Hgb A1c (Clinic) 5.4 % (4.0-6.0) 03/12/25 09:11 Coding Level of Care Code Est Pt Level 3 (00846) Est Pt Prev Care >65y(61265) Diagnoses Adult general medical exam Z00.00 Pre-diabetes R73.03 Mild anemia D64.9 Hyperlipidemia E78.5 Screening for prostate cancer Z12.5 Screening for colon cancer Z12.11 Irritation of left ear H93.8X2 Additional Codes ALEX-7 Assessment Billing - ALEX-7 Assessment Tool: ALEX-7 Assessment 77318 ([id number]) PHQ-9 - 34815 - PHQ-9 Billing: Yes ([id number]) Assessment & Plan Assessment & Plan (1) Adult general medical exam: Code(s): Z00.00 - Encounter for general adult medical examination without abnormal findings Category: Medical Plan: 69-year-old male presents for complete physical exam Encouraged healthy diet with active lifestyle and plenty of exercise (2) Pre-diabetes: Code(s): R73.03 - Prediabetes Category: Medical Plan: A1c 5.4% which is in normal range Continue working on diet low in sugars and starches Continue increasing exercise as tolerated (3) Mild anemia: Code(s): D64.9 - Anemia, unspecified Category: Medical Plan: Will continue to monitor Labs ordered (4) Hyperlipidemia: Code(s): E78.5 - Hyperlipidemia, unspecified Category: Medical Plan: Cholesterol levels are controlled. Continue rosuvastatin diet and exercise (5) Screening for prostate cancer: Code(s): Z12.5 - Encounter for screening for malignant neoplasm of prostate Category: Medical Plan: PSA is within normal limits Will continue annual screening (6) Screening for colon cancer: Code(s): Z12.11 - Encounter for screening for malignant neoplasm of colon Category: Medical Plan: Patient?says?he?had?a?colonoscopy?in?2020?and?was?told?to?follow-up?in?5?years. He says colonoscopy was in [place]. Have not been able to obtain records. Will refer to GI in 2025. (7) Irritation of left ear: Code(s): H93.8X2 - Other specified disorders of left ear Category: Medical Plan: History of eczema and irritation at left ear No evidence of infection He skin moist with a facial moisturizer that as no dyes or perfumes Can use a small amount hydrocortisone cream if needed. Call or return to office if worsening Orders: Orders Hemoglobin A1c Today R73.01 - Impaired fasting glucose, R73.03 - Prediabetes Comprehensive [place]. Panel Fast Today E78.5 - Hyperlipidemia, unspecified, Z00.00 - Encounter for general adult medical examination without abnormal findings Complete Blood Count Auto Diff Today D64.9 - Anemia, unspecified, Z00.00 - Encounter for general adult medical examination without abnormal findings IRON PROFILE Today D64.9 - Anemia, unspecified Vitamin B12 and Folate Today D64.9 - Anemia, unspecified, E53.8 - Deficiency of other specified B group vitamins AMB Hemoglobin A1c Today R73.03 - Prediabetes Lipid Panel Today E78.5 - Hyperlipidemia, unspecified, Z00.00 - Encounter for general adult medical examination without abnormal findings Reticulocyte Count Today D64.9 - Anemia, unspecified
--- OUTSIDE RECORDS SUMMARY | 2025-03-12 09:05 | XMS_ITS | Clinical Summary ---
Author Organization [facility] Address [address] [place] [address] Care Team Providers Care Medical Staff Coordinator Name Role Phone Kee Still MD Primary Care Provider [phone] Allergies Active Allergy Reactions Criticality Noted Date [...] this topic Medical Devices Implanted Type Area Electron Gun Assembler Device Identifier Shelf Expiration Date Model / Serial / Lot Cement Palacos R Bone [facility] - [id number] - [id number] Implanted:Qty: 1 on 06/23/2018 by Kee Echeverria MD at [facility] and [facility] Right: Knee [employer] 10/26/2021 [id number] / / [id number] Cr Femoral Component Implanted:Qty: 1 on 06/23/2018 by Kee Echeverria MD at [facility] Right: Knee 10/28/2022 / / [id number] [place] Cr Knee Ultra Cs Tb Insert Size 5 14mm - [id number] - [id number] Implanted:Qty: 1 on 06/23/2018 by Kee Echeverria MD at [facility] Right: Knee [employer] 03/13/2023 [id number] / / [id number] [place] Knee Tb Baseplate Cemnt Non Prous Size 5 Rt - [id number] - [id number] Implanted:Qty: 1 on 06/23/2018 by Kee Echeverria MD at [facility] Right: Knee [employer] 04/14/2023 [id number] / / [id number] [place] Knee Retain [place] Congruent Or Ultra Insrt Prmry Tb Bspl - 610152 - [id number] Implanted:Qty: 1 on 06/23/2018 by Kee Echeverria MD at [facility] Right: Knee [employer] 03/28/2023 [id number] / / [id number] [place] Knee 32mm Dome Patella 8mm Thickness - [id number] - [id number] Implanted:Qty: 1 on 06/23/2018 by Kee Echeverria MD at [facility] and [facility] Right: Knee [employer] 09/19/2022 [id number] / / [id number] Mesh 3dmax Large 6x4in Nonabs Patch Preformed Polypropylene - [id number] - [id number] Implanted:Qty: 1 on 06/17/2020 by Baltazar Morgan MD at [facility] and [facility] Right: Groin [employer] 01/23/2025 [id number] / / [id number] Advance Directives For more information, please contact: [phone] Latest Code Status on File Code Status [...] in the following way: discussion with healthcare pharmaceutical specialty representative . Care Teams Medical Staff Coordinator Relationship Specialty Start Date End Date Kee Still MD PCP - General Internal Medicine 03/24/15
--- OUTSIDE RECORDS SUMMARY | 2025-03-12 09:05 | XMS_ITS | Clinical Summary ---
Author Organization [facility] it Address [address] [place] [address] Care Team Providers Care Anthropology And Archeology Instructor Name Role Phone Kee Still MD Primary Care Provider [phone] Immunizations Name Administration Dates Next Due Pfizer SARS-CoV-2 COVID-19, mRNA, LNP-S, preservative free 09/15/2020 Surgical History Surgery Date Site/Laterality Comments JOINT REPLACEMENT PROCEDURE:JOINT REPLACEMENT HERNIA REPAIR PROCEDURE:HERNIA REPAIR COLONOSCOPY PROCEDURE:COLONOSCOPY MUSCLE REPAIR 08/20/2018 Right PROCEDURE:REPAIR QUADRICEPS / HAMSTRING MUSCLE;COMMENT:Procedure: REPAIR QUADRICEPS MUSCLE & RETINACULAR RECLOSURE; Surgeon: Kee Echeverria MD; Location: [facility]); Service: Orthopedics; Laterality: Right; TOTAL KNEE ARTHROPLASTY 06/23/2018 Right PROCEDURE:TOTAL KNEE ARTHROPLASTY;COMMENT:Procedure: REPLACEMENT TOTAL KNEE WITH NAVIGATION; Surgeon: Kee Echeverria MD; Location: [facility] ([facility]); Service: Orthopedics; Laterality: Right; KNEE SURGERY PROCEDURE:KNEE SURGERY TOTAL HIP ARTHROPLASTY PROCEDURE:TOTAL HIP ARTHROPLASTY;COMMENT:lt HERNIA REPAIR 06/17/2020 Right PROCEDURE:INGUINAL HERNIA REPAIR;COMMENT:Procedure: LAPAROSCOPY RIGHT REPAIR HERNIA INGUINAL; Surgeon: Baltazar Morgan MD; Location: [facility] MAIN OPERATING ROOM; Service: General; [...] this topic Medical Devices Implanted Type Area Tandem Mill Roller Device Identifier Shelf Expiration Date Model / Serial / Lot Cement Palacos R Bone 40gm - [id number] Implanted:Qty: 1 on 06/23/2018 by Kee Echeverria MD Right: Knee [employer] 10/26/2021 [id number] / / [id number] Cr Femoral Component Implanted:Qty: 1 on 06/23/2018 by Kee Echeverria MD Right: Knee 10/28/2022 / / [id number] [place] Cr Knee Ultra Cs Tb Insert Size 5 14mm - [id number] Implanted:Qty: 1 on 06/23/2018 by Kee Echeverria MD Right: Knee [employer] 03/13/2023 SURENDRA-[id number] / / [id number] [place] Knee Tb Baseplate Cemnt Non Prous Size 5 Rt - [id number] Implanted:Qty: 1 on 06/23/2018 by Kee Echeverria MD Right: Knee [employer] 04/14/2023 SURENDRA-[id number] / / [id number] [place] Knee Retain [place] Congruent Or Ultra Insrt Prmry Tb Bspl - [id number] Implanted:Qty: 1 on 06/23/2018 by Kee Echeverria MD Right: Knee [employer] 03/28/2023 SURENDRA-[id number] / / [id number] [place] Knee 32mm Dome Patella 8mm Thickness - [id number] Implanted:Qty: 1 on 06/23/2018 by Kee Echeverria MD Right: Knee [employer] 09/19/2022 [id number] / / [id number] Mesh 3dmax Large 6x4in Nonabs Patch Preformed Polypropylene - [id number] Implanted:Qty: 1 on 06/17/2020 by Baltazar Morgan MD Right: Groin [employer] 01/23/2025 [id number] / / [id number] Care Teams Anthropology And Archeology Instructor Relationship Specialty Start Date End Date Kee Still MD PCP - General Internal Medicine 03/24/15
[2025-03-12 09:06] VITALS: BP 130/78; PULSE 67; RESP 17; TEMP 36.4; O2SAT 97; BMI 25.1
== END 2025-03-12 09:47 | disposition home or self-care (01) ==
LOC: HO.HMCFM 08:48
PROVIDERS: PCP Family Medicine; Visit Provider Family Medicine
DX: Z00.00 Encounter for general adult medical examination without abnormal findings (principal); R73.03 Prediabetes; H93.8X2 Other specified disorders of left ear; D64.9 Anemia, unspecified; E78.5 Hyperlipidemia, unspecified; Z12.5 Encounter for screening for malignant neoplasm of prostate; Z12.11 Encounter for screening for malignant neoplasm of colon

== ENCOUNTER → 2025-03-12 08:48 | Outpatient (BNVA) | payer OTHER, SELFPAY | PROVIDERS: PCP Family Medicine; Visit Provider Family Medicine | DX: Z00.00 Encounter for general adult medical examination without abnormal findings (principal); R73.03 Prediabetes; D64.9 Anemia, unspecified; E78.5 Hyperlipidemia, unspecified; H93.8X2 Other specified disorders of left ear | CPT/HCPCS: 83036; 96127 ==

== ENCOUNTER 2025-04-08 13:00 | Outpatient (RCR) | payer MEDICARE, SELFPAY ==
--- NOTE | 2025-03-11 14:34 | MHC.PT.EP ---
[facility] [place] Office [place] Office [place] Office [address] Stephane Olivarez [address] [phone] F: [phone] F: [phone] F: [phone] F: [phone] Physical Therapy Plan of Care Date of Evaluation: 03/11/25 Date of Surgery: 01/21/2025 Diagnosis: s/p R hip CRPP fx 01/21/2025 Assessment: Patient is a 69 year old male presenting to PT s/p R hip CRPP 01/21/2025. He presents today with impairments in pain, ROM, hip strength, gait mechanics. Pt's current occupation is retired, with baseline physical activities including ADLs, biking, ambulating, stair negotiation. 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 Clinical presentation today is most consistent with signs and sx associated with R hip CRPP 01/21/2025 and pt will benefit from skilled PT 2 week x 4 weeks to address the following problems and impairments noted upon evaluation: pain, ROM, hip strength, gait mechanics. These problems limit the patient with the following functional activities: ADLs, biking, ambulating, stair negotiation. The prescribed treatment plan of care is medically necessary. Co-morbidities of none were identified and taken into considerations of plan of care. Pt was educated on HEP, role of PT, prognosis, POC. Frequency and Duration: The patient will be seen 2 x week x 4 weeks Short Term Goals: Pt will demonstrate improved R hip MMT strength by 1/3 grade in 2 weeks. Pt will demonstrate normal R hip extension ROM in 2 weeks to allow for improved gait. Marketing Support Manager Goals: Pt will demonstrate improved LEFI score by 9 points in 4 weeks for improved functional mobility. Pt will demonstrate ability to ambulate with good mechanics and no AD in 4 weeks for return to PLOF. Pt will demonstrate ability to negotiate stairs step over step in 4 weeks for return to PLOF. Treatment Plan: Modalities to reduce pain, spasms and effusion. Manual therapy to restore motion and function. Therapeutic exercise to improve strength and flexibility. Neuromuscular re-education for posture and balance. Therapeutic activities to return to functional activities of daily living. Electronically signed by: Skylar Best, PT, DPT, ATC Please sign and return to therapist. Thank you for your referral.
--- NOTE | 2025-04-22 07:04 | MHC.PT.DC ---
[facility] [place] Office [place] Office [place] Office [address] Stephane Olivarez [address] [phone] F: [phone] F: [phone] F: [phone] F: [phone] Physical Therapy Discharge Report Diagnosis: s/p R hip CRPP fx 01/21/2025 Date of Surgery: 01/21/2025 Date of Evaluation: 03/11/25 Date of Discharge: 04/22/25 Treatments to Date: 5 Cancellations to Date: 0 No Shows to Date: 0 Discharge Status: Patient Elected to Stop Discharge Summary: Pt did not want to make more appointments at last visit. Therefore to be d/c per his request. Electronically signed by: Skylar Best, PT, DPT, ATC Please sign and return to therapist. Thank you for your referral.
== END 2025-04-22 07:04 | disposition home or self-care (01) ==
LOC: HO.PTCHIC 13:00
PROVIDERS: PCP Family Medicine; Visit Provider Physician Assistant
DX: S72.001D Fracture of unspecified part of neck of right femur, subsequent encounter for closed fracture with routine healing (principal)
CPT/HCPCS: 97110; 97161; 97530

== ENCOUNTER 2025-04-21 09:47 | Outpatient (REF) | payer MEDICARE, SELFPAY ==
--- NOTE | ~2025-04-21 | XR_ITS ---
EXAMINATION: XR HIP, RIGHT CLINICAL INFORMATION: M25.551 - Pain in right hip COMPARISON: 03/01/2025, 02/03/2025. TECHNIQUE: AP pelvis, and 2 views of the right hip. FINDINGS: No acute fracture, dislocation, or suspicious bone lesion. There are 3 compression screws within the right femoral head, fixating a healed subcapital right hip fracture. Hardware appears intact, well seated, in anatomic alignment. There are moderate osteoarthritic changes of the right hip joint. There is a left femoral head replacement in place. No complication evident. Mild degenerative changes in both SI joints. Moderate to advanced spondylosis of the lower lumbar spine. Soft tissues demonstrate 2 herniorrhaphy clips in the right inguinal region. XR/XR hip RT min 2V IMPRESSION: 1. Stable appearance of the ORIF right subcapital hip fracture. Electronically signed by: Rakesh Martinez MD 04/21/2025 01:15 PM EDT
--- OUTSIDE RECORDS SUMMARY | 2025-04-22 11:42 | XMS_ITS | Clinical Summary ---
Author Organization [facility] Address [address] [place] [address] Care Team Providers Care Ski Tow Operator Name Role Phone Kee Still MD Primary Care Provider [phone] Allergies Active Allergy Reactions Criticality Noted Date [...] this topic Medical Devices Implanted Type Area Quality Review Trainer Device Identifier Shelf Expiration Date Model / Serial / Lot Cement Palacos R Bone [facility] - [id number] - [id number] Implanted:Qty: 1 on 06/23/2018 by Kee Echeverria MD at [facility] and Med Right: Knee [employer] 10/26/2021 [id number] / / [id number] Cr Femoral Component Implanted:Qty: 1 on 06/23/2018 by Kee Echeverria MD at [facility] and [facility] Right: Knee 10/28/2022 / / [id number] [place] Cr Knee Ultra Cs Tb Insert Size 5 14mm - [id number] - [id number] Implanted:Qty: 1 on 06/23/2018 by Kee Echeverria MD at [facility] and [facility] Right: Knee [employer] 03/13/2023 SURENDRA-59261 / / [id number] [place] Knee Tb Baseplate Cemnt Non Prous Size 5 Rt - [id number] - [id number] Implanted:Qty: 1 on 06/23/2018 by Kee Echeverria MD at [facility] and Med Right: Knee [employer] 04/14/2023 SURENDRA-2205R / / [id number] [place] Knee Retain [place] Congruent Or Ultra Insrt Prmry Tb Bspl - [id number] - [id number] Implanted:Qty: 1 on 06/23/2018 by Kee Echeverria MD at [facility] Right: Knee [employer] 03/28/2023 SURENDRA-71804 / / [id number] [place] Knee 32mm Dome Patella 8mm Thickness - [id number] - [id number] Implanted:Qty: 1 on 06/23/2018 by Kee Echeverria MD at [facility] and [facility] Right: Knee [employer] 09/19/2022 SURENDRA-38426 / / [id number] Mesh 3dmax Large 6x4in Nonabs Patch Preformed Polypropylene - [id number] - [id number] Implanted:Qty: 1 on 06/17/2020 by Baltazar Morgan MD at [facility] and [facility] Right: Groin [employer] 01/23/2025 [id number] / / [id number] Advance Directives For more information, please contact: [phone] Latest Code Status on File Code Status [...] in the following way: discussion with healthcare sales and service representative . Care Teams Ski Tow Operator Relationship Specialty Start Date End Date Kee Still MD PCP - General Internal Medicine 03/24/15
--- OUTSIDE RECORDS SUMMARY | 2025-04-22 11:42 | XMS_ITS | Clinical Summary ---
Author Organization [facility] it Address [address] [place] [address] Care Team Providers Care Litigator Name Role Phone Kee Still MD Primary Care Provider [phone] Immunizations Name Administration Dates Next Due Pfizer SARS-CoV-2 COVID-19, mRNA, LNP-S, preservative free 09/15/2020 Surgical History Surgery Date Site/Laterality Comments JOINT REPLACEMENT PROCEDURE:JOINT REPLACEMENT HERNIA REPAIR PROCEDURE:HERNIA REPAIR COLONOSCOPY PROCEDURE:COLONOSCOPY MUSCLE REPAIR 08/20/2018 Right PROCEDURE:REPAIR QUADRICEPS / HAMSTRING MUSCLE;COMMENT:Procedure: REPAIR QUADRICEPS MUSCLE & RETINACULAR RECLOSURE; Surgeon: Kee Echeverria MD; Location: [facility]); Service: Orthopedics; Laterality: Right; TOTAL KNEE ARTHROPLASTY 06/23/2018 Right PROCEDURE:TOTAL KNEE ARTHROPLASTY;COMMENT:Procedure: REPLACEMENT TOTAL KNEE WITH NAVIGATION; Surgeon: Kee Echeverria MD; Location: [facility] ([facility]; Service: Orthopedics; Laterality: Right; KNEE SURGERY PROCEDURE:KNEE SURGERY TOTAL HIP ARTHROPLASTY PROCEDURE:TOTAL HIP ARTHROPLASTY;COMMENT:lt HERNIA REPAIR 06/17/2020 Right PROCEDURE:INGUINAL HERNIA REPAIR;COMMENT:Procedure: LAPAROSCOPY RIGHT REPAIR HERNIA INGUINAL; Surgeon: Baltazar Morgan MD; Location: [facility] MAIN OPERATING ROOM; Service: General; Laterality: Right; [...] this topic Medical Devices Implanted Type Area Department Assistant Device Identifier Shelf Expiration Date Model / Serial / Lot Cement Palacos R Bone 40gm - [id number] Implanted:Qty: 1 on 06/23/2018 by Kee Echeverria MD Right: Knee [employer] KUL[employer] 10/26/2021 [id number] / / [id number] Cr Femoral Component Implanted:Qty: 1 on 06/23/2018 by Kee Echeverria MD Right: Knee 10/28/2022 / / [id number] [place] Cr Knee Ultra Cs Tb Insert Size 5 14mm - [id number] Implanted:Qty: 1 on 06/23/2018 by Kee Echeverria MD Right: Knee [employer] 03/13/2023 SURENDRA-13782 / / [id number] [place] Knee Tb Baseplate Cemnt Non Prous Size 5 Rt - [id number] Implanted:Qty: 1 on 06/23/2018 by Kee Echeverria MD Right: Knee [employer] 04/14/2023 SURENDRA-2205R / / [id number] [place] Knee Retain [place] Congruent Or Ultra Insrt Prmry Tb Bspl - [id number] Implanted:Qty: 1 on 06/23/2018 by Kee Echeverria MD Right: Knee [employer] 03/28/2023 SURENDRA-98112 / / [id number] [place] Knee 32mm Dome Patella 8mm Thickness - [id number] Implanted:Qty: 1 on 06/23/2018 by Kee Echeverria MD Right: Knee [employer] 09/19/2022 -12964 / / [id number] Mesh 3dmax Large 6x4in Nonabs Patch Preformed Polypropylene - [id number] Implanted:Qty: 1 on 06/17/2020 by Baltazar Morgan MD Right: Groin [employer] 01/23/2025 [id number] / / [id number] Care Teams Litigator Relationship Specialty Start Date End Date Kee Still MD PCP - General Internal Medicine 03/24/15
== END 2025-04-21 09:48 | disposition home or self-care (01) ==
LOC: HO.HOSX 09:47
PROVIDERS: Visit Provider Physician Assistant
DX: S72.001D Fracture of unspecified part of neck of right femur, subsequent encounter for closed fracture with routine healing (principal); X58.XXXD Exposure to other specified factors, subsequent encounter; Z96.651 Presence of right artificial knee joint; Z96.641 Presence of right artificial hip joint
CPT/HCPCS: 73502; 99212

== ENCOUNTER 2025-04-21 12:52 | Outpatient (AMB) | payer MEDICARE, SELFPAY ==
--- NOTE | 2025-04-21 13:11 | A.OFFVIS_ITS ---
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 Mahajan. At his last visit an order was given to start outpatient therapy, instructed to follow up in 6 weeks with x-rays. Patient reports that he is doing well, states that he completed therapy which had helped. Allergies No Known Allergies Allergy (Verified 04/21/25 13:14) Medication List - Last Reconciled 04/21/25 by Tommy Grier PA-C acetaminophen (Tylenol Extra Strength) 500 mg PO Q6H PRN rosuvastatin 5 mg PO BEDTIME HPI HPI OV-RT hip CRPP 01/21/25: Details: 69-year-old gentleman returns to the office today he is now 3 months status post right hip CRPP on 01/20/2025. He has completed physical therapy and noticed a huge improvement since his last visit. Able to ambulate without a limp and feels some strengthen his muscles. He is slowly getting back to normal activities. [facility] Medical History No pertinent past medical history Surgical History History of total right knee replacement History of left hip replacement Family History Mother Pacemaker Social History (Updated 03/12/25 @ 09:06 by Marion Godwin MA) Household Members: Spouse and Family Household Members Other:: mother in law Both parents involved: No Caregiver staying overnight: No Housing: House Are you a primary out of school hours care worker to a significant other at home: No Do you presently have visiting nurse or other home services: No 75 years or older and lives alone: No Alcohol intake: current Patient Tobacco Use Status: Never used Tobacco e-Cigarette/Vaping Use: Never Used Second Hand Smoke Exposure: No service: No Current occupational status: retired Cognitive needs: No Hearing needs: No Vision needs: No Review of Systems Const All systems reviewed & are unremarkable except as noted in HPI and below Physical Exam Extrem Other: Right hip incision well healed. No erythema or surrounding swelling. He can perform hip flexion and range of motion without discomfort. Neurovascularly intact. Results Reviewed Results Reviewed: X-rays of the right hip obtained in the office today and reviewed by me show intact hardware with stable fracture pattern Assessment & Plan Assessment & Plan (1) Closed right hip fracture: Code(s): S72.001A - Fracture of unspecified part of neck of right femur, initial encounter for closed fracture Category: Medical Plan: Patient will continue working on his exercises at home and continue increasing activities as tolerated. If there is any concern going forward he will contact our office otherwise follow up as needed. Orders: Orders XR hip RT min 2V Today M25.551 - Pain in right hip Coding Level of Care Code Est Pt Level 3 (39442) Complex EM visit Add On G2211 Diagnoses Closed right hip fracture S72.001A
--- OUTSIDE RECORDS SUMMARY | 2025-04-21 15:18 | XMS_ITS | Clinical Summary ---
Author Organization [facility] Address [address] [place] [address] Care Team Providers Care Warehouseman Name Role Phone Kee Still MD Primary Care Provider [phone] Allergies Active Allergy Reactions Criticality Noted Date [...] Tdap) 03/23/2024 03/23/2014 COVID-19 Vaccine ( season) 2025 06/05/2021, 10/21/2020, 09/15/2020 Influenza Vaccine (#1) 2025 [...] this topic Medical Devices Implanted Type Area Leader Assembler Device Identifier Shelf Expiration Date Model / Serial / Lot Cement Palacos R Bone [facility] - [id number] - [id number] Implanted:Qty: 1 on 06/23/2018 by Kee Echeverria MD at [facility] Right: Knee [employer] 10/26/2021 [id number] / / [id number] Cr Femoral Component Implanted:Qty: 1 on 06/23/2018 by Kee Echeverria MD at [facility] Right: Knee 10/28/2022 / / [id number] [place] Cr Knee Ultra Cs Tb Insert Size 5 14mm - [id number] - [id number] Implanted:Qty: 1 on 06/23/2018 by Kee Echeverria MD at [facility] Right: Knee [employer] 03/13/2023 SURENDRA-[id number] / / [id number] [place] Knee Tb Baseplate Cemnt Non Prous Size 5 Rt - [id number] - [id number] Implanted:Qty: 1 on 06/23/2018 by Kee Echeverria MD at [facility] Right: Knee [employer] 04/14/2023 SURENDRA-[id number] / / [id number] [place] Knee Retain [place] Congruent Or Ultra Insrt Prmry Tb Bspl - [id number] - [id number] Implanted:Qty: 1 on 06/23/2018 by Kee Echeverria MD at [facility] Right: Knee [employer] 03/28/2023 SURENDRA-83687 / / [id number] [place] Knee 32mm Dome Patella 8mm Thickness - [id number] - [id number] Implanted:Qty: 1 on 06/23/2018 by Kee Echeverria MD at [facility] Right: Knee [employer] 09/19/2022 SURENDRA-79903 / / [id number] Mesh 3dmax Large 6x4in Nonabs Patch Preformed Polypropylene - [id number] - [id number] Implanted:Qty: 1 on 06/17/2020 by Baltazar Morgan MD at [facility] Right: Groin [employer] 01/23/2025 [id number] / / [id number] Advance Directives For more information, please contact: [phone] Latest Code Status on File Code Status [...] in the following way: discussion with healthcare claims customer service representative . Care Teams Warehouseman Relationship Specialty Start Date End Date Kee Still MD PCP - General Internal Medicine 03/24/15
--- OUTSIDE RECORDS SUMMARY | 2025-04-21 15:18 | XMS_ITS | Clinical Summary ---
Author Organization [facility] it Address [address] [place] [address] Care Team Providers Care Sandwich Maker Name Role Phone Kee Still MD Primary Care Provider [phone] Immunizations Name Administration Dates Next Due Pfizer SARS-CoV-2 COVID-19, mRNA, LNP-S, preservative free 09/15/2020 Surgical History Surgery Date Site/Laterality Comments JOINT REPLACEMENT PROCEDURE:JOINT REPLACEMENT HERNIA REPAIR PROCEDURE:HERNIA REPAIR COLONOSCOPY PROCEDURE:COLONOSCOPY MUSCLE REPAIR 08/20/2018 Right PROCEDURE:REPAIR QUADRICEPS / HAMSTRING MUSCLE;COMMENT:Procedure: REPAIR QUADRICEPS MUSCLE & RETINACULAR RECLOSURE; Surgeon: Kee Echeverria MD; Location: [facility] ([facility]); Service: Orthopedics; Laterality: Right; TOTAL KNEE ARTHROPLASTY 06/23/2018 Right PROCEDURE:TOTAL KNEE ARTHROPLASTY;COMMENT:Procedure: REPLACEMENT TOTAL KNEE WITH NAVIGATION; Surgeon: Kee Echeverria MD; Location: [facility] ([facility]; Service: Orthopedics; Laterality: Right; KNEE SURGERY PROCEDURE:KNEE SURGERY TOTAL HIP ARTHROPLASTY PROCEDURE:TOTAL HIP ARTHROPLASTY;COMMENT:lt HERNIA REPAIR 06/17/2020 Right PROCEDURE:INGUINAL HERNIA REPAIR;COMMENT:Procedure: LAPAROSCOPY RIGHT REPAIR HERNIA INGUINAL; Surgeon: Baltazar Morgan MD; Location: [facility] MAIN OPERATING ROOM; Service: General; Laterality: Right; [...] (2 - Td or Tdap) 03/23/2024 03/23/2014 Depression Screening 07/29/2024 COVID-19 Vaccine (4 - season) 2025 06/05/2021, 10/21/2020, 09/15/2020 Influenza Vaccine [...] this topic Medical Devices Implanted Type Area Cigarette Seller Device Identifier Shelf Expiration Date Model / Serial / Lot Cement Palacos R Bone 40gm - [id number] Implanted:Qty: 1 on 06/23/2018 by Kee Echeverria MD Right: Knee [employer]US KUL[employer]ER 10/26/2021 [id number] / / [id number] Cr Femoral Component Implanted:Qty: 1 on 06/23/2018 by Kee Echeverria MD Right: Knee 10/28/2022 / / [id number] [place] Cr Knee Ultra Cs Tb Insert Size 5 14mm - [id number] Implanted:Qty: 1 on 06/23/2018 by Kee Echeverria MD Right: Knee [employer] 03/13/2023 SURENDRA-08560 / / [id number] [place] Knee Tb Baseplate Cemnt Non Prous Size 5 Rt - [id number] Implanted:Qty: 1 on 06/23/2018 by Kee Echeverria MD Right: Knee [employer] 04/14/2023 SURENDRA-2205R / / [id number] [place] Knee Retain [place] Congruent Or Ultra Insrt Prmry Tb Bspl - [id number] Implanted:Qty: 1 on 06/23/2018 by Kee Echeverria MD Right: Knee [employer] 03/28/2023 SURENDRA-18226 / / [id number] [place] Knee 32mm Dome Patella 8mm Thickness - [id number] Implanted:Qty: 1 on 06/23/2018 by Kee Echeverria MD Right: Knee [employer] 09/19/2022 -[id number] / / [id number] Mesh 3dmax Large 6x4in Nonabs Patch Preformed Polypropylene - [id number] Implanted:Qty: 1 on 06/17/2020 by Baltazar Morgan MD Right: Groin [employer] 01/23/2025 [id number] / / [id number] Care Teams Sandwich Maker Relationship Specialty Start Date End Date Kee Still MD PCP - General Internal Medicine 03/24/15
== END 2025-04-21 14:06 | disposition home or self-care (01) ==
LOC: HO.HOS 12:52
PROVIDERS: Visit Provider Physician Assistant
DX: S72.001A Fracture of unspecified part of neck of right femur, initial encounter for closed fracture (principal)
CPT/HCPCS: 99024

== ENCOUNTER → 2025-04-21 12:57 | Outpatient (BNV) | payer OTHER, SELFPAY | PROVIDERS: Visit Provider Radiology Diagnostic Radiology | DX: S72.041D Displaced fracture of base of neck of right femur, subsequent encounter for closed fracture with routine healing (principal) | CPT/HCPCS: 73502 ==

== ENCOUNTER → 2025-05-14 23:59 | Outpatient (BNV) | payer MEDICARE, SELFPAY | PROVIDERS: PCP Family Medicine; Visit Provider Family Medicine | DX: S72.001A Fracture of unspecified part of neck of right femur, initial encounter for closed fracture (principal) | CPT/HCPCS: G0180 ==

== ENCOUNTER 2025-06-09 06:59 | Outpatient (REF) | payer MEDICARE, SELFPAY ==
--- OUTSIDE RECORDS SUMMARY | 2025-06-09 07:01 | XMS_ITS | Clinical Summary ---
Author Organization [facility] it Address [address] [place] [address] Care Team Providers Care Photographs Curator Name Role Phone Kee Still MD Primary Care Provider [phone] Immunizations Immunization Administration Dates Next Due Pfizer SARS-CoV-2 COVID-19, mRNA, LNP-S, preservative free 09/15/2020 Surgical History Surgery Date Site/Laterality Comments JOINT REPLACEMENT PROCEDURE:JOINT REPLACEMENT HERNIA REPAIR PROCEDURE:HERNIA REPAIR COLONOSCOPY PROCEDURE:COLONOSCOPY MUSCLE REPAIR 08/20/2018 Right PROCEDURE:REPAIR QUADRICEPS / HAMSTRING MUSCLE;COMMENT:Procedure: REPAIR QUADRICEPS MUSCLE & RETINACULAR RECLOSURE; Surgeon: Kee Echeverria MD; Location: [facility] ([facility]); Service: Orthopedics; Laterality: Right; TOTAL KNEE ARTHROPLASTY 06/23/2018 Right PROCEDURE:TOTAL KNEE ARTHROPLASTY;COMMENT:Procedure: REPLACEMENT TOTAL KNEE WITH NAVIGATION; Surgeon: Kee Echeverria MD; Location: [facility] ([facility]; Service: Orthopedics; Laterality: Right; KNEE SURGERY PROCEDURE:KNEE SURGERY TOTAL HIP ARTHROPLASTY PROCEDURE:TOTAL HIP ARTHROPLASTY;COMMENT:lt HERNIA REPAIR 06/17/2020 Right PROCEDURE:INGUINAL HERNIA REPAIR;COMMENT:Procedure: LAPAROSCOPY RIGHT REPAIR HERNIA INGUINAL; Surgeon: Baltazar Morgan MD; Location: [facility] MAIN OPERATING ROOM; Service: General; Laterality: [...] this topic Medical Devices Implanted Type Area Director Internal Communications Device Identifier Shelf Expiration Date Model / Serial / Lot Cement Palacos R Bone 40gm - [id number] Implanted:Qty: 1 on 06/23/2018 by Kee Echeverria MD Right: Knee [employer] KUL[employer] 10/26/2021 [id number] / / [id number] Cr Femoral Component Implanted:Qty: 1 on 06/23/2018 by Kee Echeverria MD Right: Knee 10/28/2022 / / [id number] [place] Cr Knee Ultra Cs Tb Insert Size 5 14mm - [id number] Implanted:Qty: 1 on 06/23/2018 by Kee Echeverria MD Right: Knee [employer] 03/13/2023 SURENDRA-81661 / / [id number] [place] Knee Tb Baseplate Cemnt Non Prous Size 5 Rt - [id number] Implanted:Qty: 1 on 06/23/2018 by Kee Echeverria MD Right: Knee [employer] 04/14/2023 SURENDRA-2205R / / [id number] [place] Knee Retain [place] Congruent Or Ultra Insrt Prmry Tb Bspl - [id number] Implanted:Qty: 1 on 06/23/2018 by Kee Echeverria MD Right: Knee [employer] 03/28/2023 SURENDRA-32245 / / [id number] [place] Knee 32mm Dome Patella 8mm Thickness - [id number] Implanted:Qty: 1 on 06/23/2018 by Kee Echeverria MD Right: Knee [employer] 09/19/2022 -61902 / / [id number] Mesh 3dmax Large 6x4in Nonabs Patch Preformed Polypropylene - [id number] Implanted:Qty: 1 on 06/17/2020 by Baltazar Morgan MD Right: Groin [employer] 01/23/2025 [id number] / / [id number] Care Teams Photographs Curator Relationship Specialty Start Date End Date Kee Still MD PCP - General Internal Medicine 03/24/15
--- OUTSIDE RECORDS SUMMARY | 2025-06-09 07:01 | XMS_ITS | Clinical Summary ---
Author Organization [facility] Address [address] [place] [address] Care Team Providers Care Poultry Farmer Egg Name Role Phone Kee Still MD Primary [...] topic Medical Devices Implanted Type Area Director Alliance Marketing Device Identifier Shelf Expiration Date Model / Serial / Lot Cement Palacos R Bone [facility] - [id number] - [id number] Implanted:Qty: 1 on 06/23/2018 by Kee Echeverria MD at [facility] and Med Right: Knee [employer] 10/26/2021 [id number] / / [id number] Cr Femoral Component Implanted:Qty: 1 on 06/23/2018 by Kee Echeverria MD at [facility] Right: Knee 10/28/2022 / / [id number] [place] Cr Knee Ultra Cs Tb Insert Size 5 14mm - [id number] - [id number] Implanted:Qty: 1 on 06/23/2018 by Kee Echeverira MD at [facility] Right: Knee [employer] 03/13/2023 SURENDRA-68308 / / [id number] [place] Knee Tb Baseplate Cemnt Non Prous Size 5 Rt - [id number] - [id number] Implanted:Qty: 1 on 06/23/2018 by Kee Echeverria MD at [facility] Right: Knee [employer] 04/14/2023 SURENDRA-2205R / / [id number] [place] Knee Retain [place] Congruent Or Ultra Insrt Prmry Tb Bspl - 712157 - [id number] Implanted:Qty: 1 on 06/23/2018 by Kee Echeverria MD at [facility] Right: Knee [employer] 03/28/2023 SURENDRA-76605 / / [id number] [place] Knee 32mm Dome Patella 8mm Thickness - [id number] - [id number] Implanted:Qty: 1 on 06/23/2018 by Kee Echeverria MD at [facility] Right: Knee [employer] 09/19/2022 SURENDRA-17217 / / [id number] Mesh 3dmax Large 6x4in Nonabs Patch Preformed Polypropylene - [id number] - [id number] Implanted:Qty: 1 on 06/17/2020 by Baltazar Morgan MD at [facility] Right: Groin [employer] 01/23/2025 [id number] / / [id number] Advance Directives For more information, please contact: [phone] Latest Code Status on File Code Status [...] in the following way: discussion with healthcare automotive sales representative . Care Teams Poultry Farmer Egg Relationship Specialty Start Date End Date Kee Still MD PCP - General Internal Medicine 03/24/15
[2025-06-09 10:55] LABS: MANUAL DIFF FLAG NO
[2025-06-09 11:06] LABS: Hematocrit 41.9 % (42.0-52.0); Hemoglobin 13.5 g/dl (14.0-18.0); Imm Gran Abs Auto 0.00 X10*3/uL (0.00-0.03); Imm Gran Pct Auto 0.0 % (0.0-0.4); Lymphocytes Absolute Auto 1.4 X10*3/uL (1.2-4.9); Mean Corpuscular HGB Conc 32.2 g/dl (31.0-36.0); Mean Corpuscular Hemoglobin 30.9 pg (27.0-33.0); Mean Corpuscular Volume 95.9 fL (80.0-98.0); NRBC Abs Auto 0.000 X10*3/uL (0.0-0.012); NRBC Pct Auto 0.0 /100WBC (0.0-0.2); Platelet Count 230 X10*3/uL (160-400); Red Blood Count 4.37 X10*6/uL (4.60-5.80); Reticulocytes Absolute 0.046 X10*6/uL (0.026-0.095); White Blood Count 4.2 X10*3/uL (4.8-10.8)
[2025-06-09 11:26] LABS: Alanine Aminotransferase 20 U/L (0-40); Albumin Level 3.9 g/dL (3.5-5.0); Alkaline Phosphatase 58 U/L (39-117); Anion Gap 10 (12-20); Aspartate Amino Transferase 28 U/L (5-37); Blood Urea Nitrogen 17 mg/dL (9-16); Calcium 9.2 mg/dL (8.4-10.2); Carbon Dioxide 29 mmol/L (22-29); Chloride 106 mmol/L (96-108); Cholesterol 162 mg/dL (<200); Estimated Glomerular Filt Rate > 60; HDL Cholesterol 65 mg/dL (>40); Iron 101 mcg/dL (45-160); Percent Iron Saturation 44 % (15-50); Potassium 4.7 mmol/L (3.3-5.1); Sodium 140 mmol/L (135-145); Total Iron Binding Capacity 228 mcg/dL (228-428); Total Protein 6.5 g/dL (6.5-8.0); Triglycerides 61 mg/dL (<150); Unsaturated Iron Binding 127 ug/dL
[2025-06-09 12:12] LABS: Folate 11.9 ng/mL (> or = 4.0); Vitamin B12 427 pg/mL (200-900)
== END 2025-06-09 07:00 | disposition home or self-care (01) ==
LOC: HO.HMGCLDS 06:59
PROVIDERS: PCP Family Medicine; Visit Provider Family Medicine
DX: Z00.00 Encounter for general adult medical examination without abnormal findings (principal); E53.8 Deficiency of other specified B group vitamins; E78.5 Hyperlipidemia, unspecified; D64.9 Anemia, unspecified; R73.03 Prediabetes
CPT/HCPCS: 36415; 80053; 80061; 82607; 82746; 83036; 83540; 85025; 85045

== ENCOUNTER 2025-06-14 15:31 | Outpatient (AMB) | payer OTHER, SELFPAY ==
--- NOTE | 2025-06-14 15:37 | MHC.PC.OV ---
Vital Signs 06/14/25 15:42 Height 5 ft 9 in Weight 171 lb 2 oz BMI 25.3 BP 134/74 Blood Pressure Location Lt brachial Position Sitting Respiration 14 Pulse 61 Pulse Source Pulse Oximeter Temp 98.3 F Temp Source Oral Pulse Oximetry (%) 98 Oxygen Delivery Method Room Air Intake Visit Reasons: HTN,pre diab,hyperlipidemia and mild anemia. Intake Note: patient is scheduled to discuss labs, pre-dm and htn patient is also having left knee pain and discomfort. patient would also like to discuss burning sensation during climax in his groin area. Ec Teacher Required: No Allergies No Known Allergies Allergy (Verified 06/14/25 15:40) Medication List - Last Reconciled 06/14/25 by Silviano Daley MD rosuvastatin 5 mg PO .QOD 90 days Tobacco use date assessed: 03/12/25 Dental Screening Dental Screen Date: 03/12/25 HPI HTN,pre diab,hyperlipidemia and mild anemia. HPI Details 69 y/o male presents to f/u HTN, prediabetes, HLD, mild anemia. Labs drawn 06/09/25. Reviewed labs with pt. Ongoing mild anemia. A1c 5.5%. Fasting glucose 103. Triglycerides 61. TC 162. LDL 85. HDL 65. Blood pressure today 134/74, 61p. Reports knee pain. Also reports groin pain. [facility] Medical History No pertinent past medical history Surgical History History of total right knee replacement History of left hip replacement Family History Mother Pacemaker Social History Household Members: Spouse and Family Household Members Other:: mother in law Housing: House Are you a primary career services assistant to a significant other at home: No Do you presently have visiting nurse or other home services: No Alcohol intake: current Patient Tobacco Use Status: Never used Tobacco e-Cigarette/Vaping Use: Never Used Second Hand Smoke Exposure: No service: No Current occupational status: retired Cognitive needs: No Hearing needs: No Vision needs: No Questionnaire Thrive Questionnaire Date Thrive assessed: 03/12/25 I am a: Patient What is your living situation today?: I have a steady place to live Within the past 12 months, did the food you bought not last and you didn't have the money to get more?: Never true Within the past 12 months, did you worry whether your food would run out before you got money to buy more?: Never true Do you have trouble paying for medicines?: No Do you have trouble getting transportation to medical appointments?: No Do you have trouble paying your heating and electricity bill?: No Do you have trouble taking care of your child, family member or friend?: No Do you have trouble with day-to-day activities such as bathing, preparing meals, shopping, managing finances, etc.?: No Are you currently unemployed and looking for a job?: No Are you interested in more education?: No Please select the resources that you would like help with: None Currently or been in a relationship where the following occur: No concerns reported THRIVE Score: 0 ALEX-7 AMB Questionnaire ALEX-7 Date ALEX - 7 assessed: 03/12/25 Source: Developed by Drs. Josep King, Janet Negrete, Jax Lema and colleagues, with an educational meño from [employer]. Review of Systems Const Denies chills, Denies fatigue, Denies fever(s), Denies headache(s) and Denies weakness ENT Denies dizziness and Denies headache(s) Card Denies dyspnea Resp Denies cough, Denies dyspnea, Denies wheezing and Denies other (shortness of breath) Musc Denies numbness and Denies tingling Neuro Denies dizziness, Denies headache(s), Denies numbness, Denies tingling and Denies weakness Psych Denies anxiety and Denies depression Endo Denies fatigue Aller/Immun Denies wheezing Physical exam (Primary Care) Vital Signs: Last Vital Signs Temp 98.3 F 06/14/25 15:42 Pulse 61 06/14/25 15:42 Resp 14 06/14/25 15:42 BP 134/74 06/14/25 15:42 Pulse Ox 98 06/14/25 15:42 Oxygen Delivery Method Room Air 06/14/25 15:42 BMI result Body Mass Index 25.3 Tobacco/Smoking Status: Tobacco use Status Tobacco use date assessed 03/12/25 06/14/25 15:45 Patient Tobacco Use Status Never used Tobacco 06/14/25 15:45 e-Cigarette/Vaping Use Never Used 06/14/25 15:45 Thrive Assessment: Date of Thrive Assessment Date Thrive assessed 03/12/25 06/14/25 15:45 Currently or been in a relationship where the following occur: No concerns reported Const General: well developed; No acute distress Nutritional Appearance: well nourished Orientation/consciousness: patient oriented x3 HENMT Head: Yes normocephalic and Yes atraumatic Eyes General: appearance normal, both eyes and all related structures Pupils: Equal, round and reactive pupils present EOM: EOMs intact bilaterally Resp Effort & Inspection: normal respiratory effort Neuro General: patient oriented x3 and gait normal Cranial nerves: Yes Equal, round and reactive pupils present Psych Affect: normal affect Coding Level of Care Code Est Pt Level 5 (00019) Diagnoses Elevated blood pressure reading R03.0 Pre-diabetes R73.03 Hyperlipidemia E78.5 Knee pain M25.569 Left shoulder pain M25.512 Groin pain R10.30 Assessment & Plan Assessment & Plan (1) Elevated blood pressure reading: Code(s): R03.0 - Elevated blood-pressure reading, without diagnosis of hypertension Category: Medical Plan: Blood pressure remains mildly elevated in prehypertensive range Continue working on a diet low in salt/sodium Will continue to monitor (2) Pre-diabetes: Code(s): R73.03 - Prediabetes Category: Medical Plan: A1c 5.5%. Continue diet low in sugars and starches (3) Hyperlipidemia: Code(s): E78.5 - Hyperlipidemia, unspecified Category: Medical Plan: LDL cholesterol is controlled on rosuvastatin He has been decreasing this dose but LDL remains controlled. He is now taking rosuvastatin 5 mg every other day and will continue this (4) Knee pain: Code(s): M25.569 - Pain in unspecified knee Category: Medical Plan: History of right knee replacement and arthritis. He also notes left knee arthritis and this has been worsening. He can use ice and ibuprofen Will check x-ray Patient notes that he is already called ortho and has an appointment with them Follow-up with ortho (5) Left shoulder pain: Code(s): M25.512 - Pain in left shoulder Category: Medical Plan: Left shoulder pain with abduction and internal rotation He is still able to bring arm up overhead Likely mild strain Will check x-ray As above, he can use ice and ibuprofen He would like a referral to Ortho which is made and he will follow-up with them (6) Groin pain: Code(s): R10.30 - Lower abdominal pain, unspecified Category: Medical Plan: Patient has left lower pelvic and inguinal / groin pain during orgasm. Will check ultrasound for hernia Plan He will follow-up in June to review pelvic ultrasound as well as x-rays of left shoulder and left knee. Has an appointment with Ortho to follow-up on his left knee and we can discuss the office visit. He spends about 6 months out of the year in [place]. Orders: Orders XR shoulder LT min 2V 06/16/25 M25.512 - Pain in left shoulder US pelvic limited 06/14/25 R10.30 - Lower abdominal pain, unspecified Referrals Orthopedics Referral M25.512 - Pain in left shoulder, M25.569 - Pain in unspecified knee Medications: New ibuprofen 400 mg PO Q8H PRN 90 tabs 3RF pain 30 days Changed From rosuvastatin 5 mg (1/2 x 10 mg) PO BEDTIME 90 days 45 tabs 3RF To rosuvastatin 5 mg PO .QOD 45 tabs 3RF 90 days
[2025-06-14 15:42] VITALS: BP 134/74; PULSE 61; RESP 14; TEMP 36.8; O2SAT 98; BMI 25.3
== END 2025-06-14 16:19 | disposition home or self-care (01) ==
LOC: HO.HMCFM 15:32
PROVIDERS: PCP Family Medicine; Visit Provider Family Medicine
DX: R03.0 Elevated blood-pressure reading, without diagnosis of hypertension (principal); R73.03 Prediabetes; E78.5 Hyperlipidemia, unspecified; M25.569 Pain in unspecified knee; M25.512 Pain in left shoulder; R10.30 Lower abdominal pain, unspecified

== ENCOUNTER 2025-06-16 12:40 | Outpatient (REF) | payer OTHER, SELFPAY ==
--- NOTE | ~2025-06-16 | XR_ITS ---
EXAMINATION: XR KNEE, LEFT CLINICAL INFORMATION: M25.569 - Pain in unspecified knee COMPARISON: None available. TECHNIQUE: Four views of the left knee. FINDINGS: Severe medial compartment arthritis. Mild lateral, mild-moderate patellofemoral arthritis. No visible acute fracture or dislocation. Small sclerotic focus in the medial tibial plateau, appears nonaggressive. Moderate effusion. XR/XR knee LT 4V IMPRESSION: Tricompartment osteoarthritis. Severe medial compartment arthritis. Moderate effusion. Electronically signed by: Dashawn Nascimento MD 06/16/2025 01:17 PM EST
--- NOTE | ~2025-06-16 | XR_ITS ---
EXAMINATION: XR SHOULDER, LEFT CLINICAL INFORMATION: M25.512 - Pain in left shoulder COMPARISON: None available. TECHNIQUE: 5 views of the left shoulder. FINDINGS: Severe glenohumeral arthritis. Mild acromioclavicular arthritis. No suspicious bony lesion. No acute fracture or dislocation. 1.8 cm ossification inferior to the coracoid process, likely loose body. No suspicious soft tissue calcifications.. XR/XR shoulder LT min 2V IMPRESSION: Severe glenohumeral arthritis. 1.8 cm loose body. Electronically signed by: Dashawn Nascimento MD 06/17/2025 10:08 AM CAROLINE
--- OUTSIDE RECORDS SUMMARY | 2025-06-16 23:59 | XMS_ITS | Clinical Summary ---
Author Organization [facility] it Address [address] [place] [address] Care Team Providers Care Assembler Billiard Table Name Role Phone Kee Still MD Primary Care Provider [phone] Immunizations Immunization Administration Dates Next Due Pfizer SARS-CoV-2 COVID-19, mRNA, LNP-S, preservative free 09/15/2020 Surgical History Surgery Date Site/Laterality Comments JOINT REPLACEMENT PROCEDURE:JOINT REPLACEMENT HERNIA REPAIR PROCEDURE:HERNIA REPAIR COLONOSCOPY PROCEDURE:COLONOSCOPY MUSCLE REPAIR 08/20/2018 Right PROCEDURE:REPAIR QUADRICEPS / HAMSTRING MUSCLE;COMMENT:Procedure: REPAIR QUADRICEPS MUSCLE & RETINACULAR RECLOSURE; Surgeon: Kee Echeverria MD; Location: [facility] ([facility]); Service: Orthopedics; Laterality: Right; TOTAL KNEE ARTHROPLASTY 06/23/2018 Right PROCEDURE:TOTAL KNEE ARTHROPLASTY;COMMENT:Procedure: REPLACEMENT TOTAL KNEE WITH NAVIGATION; Surgeon: Kee Echeverria MD; Location: [facility] ([facility]; Service: Orthopedics; Laterality: Right; KNEE SURGERY PROCEDURE:KNEE SURGERY TOTAL HIP ARTHROPLASTY PROCEDURE:TOTAL HIP ARTHROPLASTY;COMMENT:lt HERNIA REPAIR 06/17/2020 Right PROCEDURE:INGUINAL HERNIA REPAIR;COMMENT:Procedure: LAPAROSCOPY RIGHT REPAIR HERNIA INGUINAL; Surgeon: Baltazar Morgan MD; Location: [facility] MAIN OPERATING ROOM; Service: General; Laterality: Right; [...] this topic Medical Devices Implanted Type Area Wholesale Loan Processor Device Identifier Shelf Expiration Date Model / Serial / Lot Cement Palacos R Bone 40gm - [id number] Implanted:Qty: 1 on 06/23/2018 by Kee Echeverria MD Right: Knee HERAEUS KULZER 10/26/2021 [id number] / / [id number] Cr Femoral Component Implanted:Qty: 1 on 06/23/2018 by Kee Echeverria MD Right: Knee 10/28/2022 / / [id number] [place] Cr Knee Ultra Cs Tb Insert Size 5 14mm - [id number] Implanted:Qty: 1 on 06/23/2018 by Kee Echeverria MD Right: Knee [employer] 03/13/2023 SURENDRA-[id number] / / [id number] [place] Knee Tb Baseplate Cemnt Non Prous Size 5 Rt - [id number] Implanted:Qty: 1 on 06/23/2018 by Kee Echeverria MD Right: Knee [employer] 04/14/2023 SURENDRA-2205R / / [id number] [place] Knee Retain [place] Congruent Or Ultra Insrt Prmry Tb Bspl - [id number] Implanted:Qty: 1 on 06/23/2018 by Kee Echeverria MD Right: Knee [employer] 03/28/2023 SURENDRA-22958 / / [id number] [place] Knee 32mm Dome Patella 8mm Thickness - [id number] Implanted:Qty: 1 on 06/23/2018 by Kee Echeverria MD Right: Knee [employer] SCI[employer] 09/19/2022 -[id number] / / [id number] Mesh 3dmax Large 6x4in Nonabs Patch Preformed Polypropylene - [id number] Implanted:Qty: 1 on 06/17/2020 by Baltazar Morgan MD Right: Groin THELMA RAMIRES - DAVOL DIV 01/23/2025 [id number] / / [id number] Care Teams Assembler Billiard Table Relationship Specialty Start Date End Date Kee Still MD PCP - General Internal Medicine 03/24/15
--- OUTSIDE RECORDS SUMMARY | 2025-06-16 23:59 | XMS_ITS | Clinical Summary ---
Author Organization [facility] Address [address] [place] [address] Care Team Providers Care Engraver Apprentice Decorative Name Role Phone Kee Still MD Primary [...] this topic Medical Devices Implanted Type Area Bleach Packer Device Identifier Shelf Expiration Date Model / Serial / Lot Cement Palacos R Bone [facility] - [id number] - [id number] Implanted:Qty: 1 on 06/23/2018 by Kee Echeverria MD at [facility] Right: Knee [employer] INC 10/26/2021 [id number] / / [id number] Cr Femoral Component Implanted:Qty: 1 on 06/23/2018 by Kee Echeverria MD at [facility] Right: Knee 10/28/2022 / / [id number] [place] Cr Knee Ultra Cs Tb Insert Size 5 14mm - [id number] - [id number] Implanted:Qty: 1 on 06/23/2018 by Kee Echeverria MD at [facility] Right: Knee [employer] 03/13/2023 SURENDRA-79801 / / [id number] [place] Knee Tb Baseplate Cemnt Non Prous Size 5 Rt - [id number] - [id number] Implanted:Qty: 1 on 06/23/2018 by Kee Echeverria MD at [facility] Right: Knee [employer] 04/14/2023 SURENDRA-2205R / / [id number] [place] Knee Retain [place] Congruent Or Ultra Insrt Prmry Tb Bspl - [id number] - [id number] Implanted:Qty: 1 on 06/23/2018 by Kee Echeverria MD at [facility] Right: Knee [employer] 03/28/2023 SURENDRA-01573 / / [id number] [place] Knee 32mm Dome Patella 8mm Thickness - [id number] - [id number] Implanted:Qty: 1 on 06/23/2018 by Kee Echeverria MD at [facility] Right: Knee [employer] 09/19/2022 SURENDRA-11934 / / [id number] Mesh 3dmax Large 6x4in Nonabs Patch Preformed Polypropylene - [id number] - [id number] Implanted:Qty: 1 on 06/17/2020 by Baltazar Morgan MD at [facility] Right: Groin [employer] 01/23/2025 [id number] / / [id number] Advance Directives For more information, please contact: [phone] Latest Code Status on File Code Status [...] in the following way: discussion with healthcare employer relations representative . Care Teams Engraver Apprentice Decorative Relationship Specialty Start Date End Date Kee Still MD PCP - General Internal Medicine 03/24/15
== END 2025-06-16 12:41 | disposition home or self-care (01) ==
LOC: HO.XRAY 12:40
PROVIDERS: PCP Family Medicine; Visit Provider Family Medicine
DX: M25.512 Pain in left shoulder (principal); M25.562 Pain in left knee
CPT/HCPCS: 73030; 73564

== ENCOUNTER → 2025-06-16 12:43 | Outpatient (BNV) | payer OTHER, SELFPAY | PROVIDERS: PCP Family Medicine; Visit Provider Radiology Diagnostic Ultrasound | DX: M17.12 Unilateral primary osteoarthritis, left knee (principal) | CPT/HCPCS: 73030; 73564 ==

== ENCOUNTER 2025-07-15 13:03 | Outpatient (REF) | payer OTHER, SELFPAY ==
--- NOTE | ~2025-07-15 | XR_ITS ---
EXAMINATION: XR KNEES ANTEROPOSTERIOR STANDING BILATERAL HISTORY: M25.561 - Pain in right knee COMPARISON: Comparison is made with the prior examination of the left knee dated 06/16/2025 and the prior examination of the right knee dated 01/20/2025. FINDINGS: Standing AP views of both knees are submitted. On the right, a joint arthroplasty is noted. Evaluation is extremely limited on a single AP view. The left knee demonstrates moderate osteoarthritis of the medial compartment with joint space narrowing. Evaluation is otherwise limited on a single AP view. XR/XR knee standing BI IMPRESSION: Status post right total knee arthroplasty. Moderate narrowing of the medial compartment of the left knee. Electronically signed by: Josep Hernandez MD 07/15/2025 03:24 PM [facility]
--- OUTSIDE RECORDS SUMMARY | 2025-07-15 16:57 | XMS_ITS | Clinical Summary ---
Author Organization [facility] Prior to 12/26/24 Address [address] [place] [address] Care Team Providers Care Wood Molder Name Role Phone Kee Still MD Primary [...] this topic Medical Devices Implanted Type Area Stock Checkerer Device Identifier Shelf Expiration Date Model / Serial / Lot Cement Palacos R Bone 40gm - [id number] - [id number] Implanted:Qty: 1 on 06/23/2018 by Kee Echeverria MD at [facility] Right: Knee [employer] 10/26/2021 [id number] / / [id number] Cr Femoral Component Implanted:Qty: 1 on 06/23/2018 by Kee Echeverria MD at [facility] Right: Knee 10/28/2022 / / [id number] [place] Cr Knee Ultra Cs Tb Insert Size 5 14mm - [id number] - [id number] Implanted:Qty: 1 on 06/23/2018 by Kee Echeverria MD at [facility] Right: Knee [employer] 03/13/2023 SURENDRA-34267 / / [id number] [place] Knee Tb Baseplate Cemnt Non Prous Size 5 Rt - [id number] - [id number] Implanted:Qty: 1 on 06/23/2018 by Kee Echeverria MD at [facility] Right: Knee [employer] 04/14/2023 SURENDRA-2205R / / [id number] [place] Knee Retain [place] Congruent Or Ultra Insrt Prmry Tb Bspl - 196425 - [id number] Implanted:Qty: 1 on 06/23/2018 by Kee Echeverria MD at [facility] Right: Knee [employer] 03/28/2023 SURENDRA-91038 / / [id number] [place] Knee 32mm Dome Patella 8mm Thickness - 151221 - [id number] Implanted:Qty: 1 on 06/23/2018 by Kee Echeverria MD at [facility] Right: Knee [employer] INC 09/19/2022 SURENDRA-75650 / / [id number] Mesh 3dmax Large 6x4in Nonabs Patch Preformed Polypropylene - [id number] - [id number] Implanted:Qty: 1 on 06/17/2020 by Baltazar Morgan MD at [facility] Right: Groin [employer] 01/23/2025 [id number] / / [id number] Advance Directives For more information, please contact: [phone] Latest Code Status on File Code Status [...] in the following way: discussion with healthcare abrasives sales representative . Care Teams Wood Molder Relationship Specialty Start Date End Date Kee Still MD PCP - General Internal Medicine 03/24/15
--- OUTSIDE RECORDS SUMMARY | 2025-07-15 16:57 | XMS_ITS | Clinical Summary ---
Author Organization [facility] it Address [address] [place] [address] Care Team Providers Care Lead Software Qa Engineer Name Role Phone Kee Still MD Primary Care Provider [phone] Immunizations Immunization Administration Dates Next Due Pfizer SARS-CoV-2 COVID-19, mRNA, LNP-S, preservative free 09/15/2020 Surgical History Surgery Date Site/Laterality Comments JOINT REPLACEMENT PROCEDURE:JOINT REPLACEMENT HERNIA REPAIR PROCEDURE:HERNIA REPAIR COLONOSCOPY PROCEDURE:COLONOSCOPY MUSCLE REPAIR 08/20/2018 Right PROCEDURE:REPAIR QUADRICEPS / HAMSTRING MUSCLE;COMMENT:Procedure: REPAIR QUADRICEPS MUSCLE & RETINACULAR RECLOSURE; Surgeon: Kee Echeverria MD; Location: [facility] ([facility]); Service: Orthopedics; Laterality: Right; TOTAL KNEE ARTHROPLASTY 06/23/2018 Right PROCEDURE:TOTAL KNEE ARTHROPLASTY;COMMENT:Procedure: REPLACEMENT TOTAL KNEE WITH NAVIGATION; Surgeon: Kee Echeverria MD; Location: [facility] ([facility]; Service: Orthopedics; Laterality: Right; KNEE SURGERY PROCEDURE:KNEE SURGERY TOTAL HIP ARTHROPLASTY PROCEDURE:TOTAL HIP ARTHROPLASTY;COMMENT:lt HERNIA REPAIR 06/17/2020 Right PROCEDURE:INGUINAL HERNIA REPAIR;COMMENT:Procedure: LAPAROSCOPY RIGHT REPAIR HERNIA INGUINAL; Surgeon: Baltazar Morgan MD; Location: [facility] MAIN OPERATING ROOM; Service: General; Laterality: Right; [...] on file Sexual Orientation Not on file Plan of Treatment Health Maintenance Due Date Last Done Comments DTaP,Tdap,and Td Vaccines (2 - Td or Tdap) 03/23/2024 03/23/2014 Depression Screening 07/29/2024 COVID-19 Vaccine ( - season) 2025 06/05/2021, 10/21/2020, 09/15/2020 Influenza [...] this topic Medical Devices Implanted Type Area Project Engineer Chemicals Device Identifier Shelf Expiration Date Model / Serial / Lot Cement Palacos R Bone 40gm - [id number] Implanted:Qty: 1 on 06/23/2018 by Kee Echeverria MD Right: Knee HERAEUS KULZER 10/26/2021 [id number] / / [id number] Cr Femoral Component Implanted:Qty: 1 on 06/23/2018 by eKe Echeverria MD Right: Knee 10/28/2022 / / [id number] [place] Cr Knee Ultra Cs Tb Insert Size 5 14mm - [id number] Implanted:Qty: 1 on 06/23/2018 by Kee Echeverria MD Right: Knee [employer] 03/13/2023 SURENDRA-48447 / / [id number] [place] Knee Tb Baseplate Cemnt Non Prous Size 5 Rt - [id number] Implanted:Qty: 1 on 06/23/2018 by Kee Echeverria MD Right: Knee [employer] 04/14/2023 SURENDRA-2205R / / [id number] [place] Knee Retain [place] Congruent Or Ultra Insrt Prmry Tb Bspl - [id number] Implanted:Qty: 1 on 06/23/2018 by Kee Echeverria MD Right: Knee [employer]NI [employer] SCIENCE 03/28/2023 SURENDRA-56460 / / [id number] [place] Knee 32mm Dome Patella 8mm Thickness - [id number] Implanted:Qty: 1 on 06/23/2018 by Kee Echeverria MD Right: Knee [employer] SCIENCE 09/19/2022 -63425 / / [id number] Mesh 3dmax Large 6x4in Nonabs Patch Preformed Polypropylene - [id number] Implanted:Qty: 1 on 06/17/2020 by Baltazar Morgan MD Right: Groin [employer]MA [employer] - [employer]OL DIV 01/23/2025 [id number] / / [id number] Care Teams Lead Software Qa Engineer Relationship Specialty Start Date End Date Kee Still MD PCP - General Internal Medicine 03/24/15
== END 2025-07-15 13:04 | disposition home or self-care (01) ==
LOC: HO.HOSX 13:03
PROVIDERS: Visit Provider Physician Assistant
DX: M17.12 Unilateral primary osteoarthritis, left knee (principal)
CPT/HCPCS: 20610; 73565; 99212; J0665; J1100; J2003

== ENCOUNTER 2025-07-15 15:07 | Outpatient (AMB) | payer MEDICARE, SELFPAY ==
--- NOTE | 2025-07-15 15:17 | MHC.OFFVIS ---
Vital Signs 07/15/25 15:23 Height 5 ft 9 in Weight 171 lb BMI 25.2 Intake Visit Reasons: Newprob-Left knee pain Intake Note: David is a 69 year old male who presents today as an established patient, new problem visit to evaluate left knee pain. Patient is s/p en situ percutaneous pinning right femoral neck, performed by Dr. Mahajan on 01/21/25. Patient reports on and off pain for a while, stating x-rays in 2019 revealing arthritis. Patient reports his pain became bothersome in April, that makes it difficult to sleep. His pain is located at the medial side of knee. Complaints of pain with any twisting of his knee. He has been performing home exercises that was instructed from PCP. He uses ibuprofen occasionally prn, that provides him with relief.Denies injury. He also complains of left shoulder pain due to use of cane, however improvement in his discomfort. Allergies No Known Allergies Allergy (Verified 06/14/25 15:40) Medication List - Last Reconciled 07/15/25 by Tommy Grier PA-C ibuprofen 400 mg PO Q8H PRN 30 days rosuvastatin 5 mg PO .QOD 90 days HPI Comments Details: History of Present Illness The patient is a 69 year old male presenting with left knee pain. He has a history of a right total knee arthroplasty in late 2018, which was initially successful with a good early recovery. However, 10 days postoperatively, he experienced a loud pop in the knee as his internal stitches ruptured, leading to a complete tear of the quadriceps muscle. This required a second surgery a couple of months later to repair the muscle. Regarding the left knee, x-rays in 2019 suggested wear, and recent imaging confirms arthritis, predominantly on the medial side and around the kneecap, with osteophyte formation. He experiences occasional flare-ups of pain on the inner aspect of his knee, which has been particularly bothersome for the past two weeks, though it has improved with physical therapy. The pain is primarily associated with walking, while bicycling is well-tolerated, and can occur at night. He has never had injections in his left knee. He also has a history of shoulder arthritis, which limits his ability to do push-ups but does not prevent him from raising his arm overhead. The patient denies a history of diabetes. He had a Rt hip hemiarthroplasty with Dr mahajan [id number] Social History - The patient travels to [place] from after [place] until December. - He is active and bicycles a lot, which does not significantly bother his knee. - Functionally, his knee pain limits walking and can affect his sleep, but he is otherwise functioning fairly well. [facility] Medical History No pertinent past medical history Surgical History History of total right knee replacement History of left hip replacement Family History Mother Pacemaker Social History Household Members: Spouse and Family Household Members Other:: mother in law Both parents involved: No Caregiver staying overnight: No Housing: House Are you a primary tree care foreman to a significant other at home: No Do you presently have visiting nurse or other home services: No 75 years or older and lives alone: No Alcohol intake: current Patient Tobacco Use Status: Never used Tobacco e-Cigarette/Vaping Use: Never Used Second Hand Smoke Exposure: No service: No Current occupational status: retired Cognitive needs: No Hearing needs: No Vision needs: No Review of Systems Narrative Review of Systems - Musculoskeletal: Reports intermittent pain in the left knee, localized to the medial aspect, which can flare up with activity such as walking. Denies significant pain with bicycling. Reports pain at night while sleeping. Reports history of right total knee arthroplasty with postoperative quadriceps tendon rupture and subsequent repair. Reports some shoulder pain but has full overhead motion. - Endocrine: Denies diabetes. Physical Exam Exam Exam: Left knee skin intact, no erythema or joint effusion. Tenderness along the medial joint line. ROM full with crepitus. Negative steinmans. No ligamentous laxity. NVI. Vital Signs: BMI result Body Mass Index 25.2 Office Procedures AMB Joint Injection/Aspiration Joint Injection/Aspiration Primary Site: Left Knee Prep: site was prepped using aseptic technique, ethochloride spray was applied and injection warnings given Injected: 40 mg of, Decadron, with 3 mL of, 1% plain Lidocaine, 0.25% Bupivacaine and in the joint Approach Used: anterolateral Procedure: The patient tolerated the procedure well and there was some relief with the local anesthesia Coding 99206 - Glenohumeral/Tronchanteric Bursa/Intraarticular Procedure code (CPT) selection complete Assessment & Plan Assessment & Plan (1) Osteoarthritis of left knee: Code(s): M17.12 - Unilateral primary osteoarthritis, left knee Category: Medical Plan Plan X-rays of the left knee demonstrate arthritis, which is more pronounced on the medial side and around the kneecap, with associated osteophytes. The patient's symptoms consist of occasional flare-ups which are managed with physical therapy. He has not previously tried injections. A corticosteroid injection will be administered to the left knee today as a preventative measure for his upcoming travel to [place], where he anticipates being more active. The patient was counseled that the injection's effect could last from three months to a year and will help establish a baseline for the severity of his arthritis. Surgical options, including total knee arthroplasty, were discussed for the future if conservative measures fail. The patient was informed about the referral process to Dr. Mahajan for surgery and the surgical approaches, noting Dr. Mahajan does not perform the subvastus technique. It was recommended that the patient keep a journal to track his symptoms and functional limitations to help guide the timing for a potential surgery, which he is considering for next fall. Consent The patient provided verbal consent for a corticosteroid injection into his left knee. The rationale for the procedure was discussed, including pain and inflammation reduction, particularly as a preventative measure for his planned travel. Alternatives, such as gel injections, were reviewed. Benefits, including pain relief lasting from three months to a year, and risks, such as a temporary increase in soreness for a few days post-injection, were explained. The patient understood the discussion and agreed to proceed with the injection. Patient was informed and verbally consented to the use of an ambient scribe for clinic note documentation during this visit. Orders: Orders XR knee standing BI Today M25.561 - Pain in right knee, M25.562 - Pain in left knee Coding Level of Care Code Est Pt Level 3 (84235) Add On Problem Visit Only Diagnoses Osteoarthritis of left knee M17.12 CPT Codes Coding - Joint 7: 78177 - Glenohumeral/Tronchanteric Bursa/Intraarticular ([id number])
[2025-07-15 15:23] VITALS: BMI 25.2
== END 2025-07-15 15:51 | disposition home or self-care (01) ==
LOC: HO.HOS 15:08
PROVIDERS: Visit Provider Physician Assistant
DX: M17.12 Unilateral primary osteoarthritis, left knee (principal)
CPT/HCPCS: 20610; 99213

== ENCOUNTER → 2025-07-15 15:09 | Outpatient (BNV) | payer OTHER, SELFPAY | PROVIDERS: Visit Provider Radiology Diagnostic Radiology | DX: M25.561 Pain in right knee (principal); M17.12 Unilateral primary osteoarthritis, left knee; Z96.651 Presence of right artificial knee joint | CPT/HCPCS: 73565 ==

== ENCOUNTER 2025-07-19 16:23 | Outpatient (AMB) | payer OTHER, SELFPAY ==
--- NOTE | 2025-07-19 16:20 | A.OFFPC_ITS ---
Intake Visit Reasons: imaging results /knee Fitness Leader Required: No Allergies No Known Allergies Allergy (Verified 07/19/25 16:21) Medication List - Last Reconciled 07/19/25 by Silviano Daley MD ibuprofen 400 mg PO Q8H PRN 30 days rosuvastatin 5 mg PO .QOD 90 days Tobacco use date assessed: 07/19/25 Fall risk assessment: 2 + Falls in past year Last assessed Fall Risk: 07/19/25 Dental Screening Dental Screen Date: 07/19/25 Did you have a dental visit in the last 12 months?: Yes Did you have a dental problem in the last 6 months where you did not have access to dental care?: No Was dental information given to patient?: Patient has dentist HPI imaging results /knee HPI Details 69 y/o male presents to f/u knee x-ray v ia telemedicine. Knee xray 07/15/25 showed: XR/XR knee standing BI IMPRESSION: Status post right total knee arthroplasty. Moderate narrowing of the medial compartment of the left knee Also had complaints of intermittent shoulder pain. FOR[facility], [facility] Medical History No pertinent past medical history Surgical History History of total right knee replacement History of left hip replacement Family History Mother Pacemaker Social History Household Members: Spouse and Family Household Members Other:: mother in law Both parents involved: No Caregiver staying overnight: No Housing: House Are you a primary behavioral health care manager to a significant other at home: No Do you presently have visiting nurse or other home services: No 75 years or older and lives alone: No Alcohol intake: current Patient Tobacco Use Status: Never used Tobacco e-Cigarette/Vaping Use: Never Used Second Hand Smoke Exposure: No service: No Current occupational status: retired Current occupational exposures/hazards: No Cognitive needs: No Hearing needs: No Vision needs: No Questionnaire Thrive Questionnaire Date Thrive assessed: 03/12/25 ALEX-7 AMB Questionnaire ALEX-7 Date ALEX - 7 assessed: 03/12/25 Source: Developed by Drs. Josep King, Janet Negrete, Jax Lema and colleagues, with an educational meño from [employer]. Review of Systems Const Denies chills, Denies fatigue, Denies fever(s), Denies headache(s) and Denies weakness ENT Denies dizziness and Denies headache(s) Card Denies dyspnea Resp Denies cough, Denies dyspnea, Denies wheezing and Denies other (shortness of breath) Musc Denies numbness and Denies tingling Neuro Denies dizziness, Denies headache(s), Denies numbness, Denies tingling and Denies weakness Psych Denies anxiety and Denies depression Endo Denies fatigue Aller/Immun Denies wheezing Physical exam (Primary Care) Tobacco/Smoking Status: Tobacco use Status Tobacco use date assessed 07/19/25 07/19/25 16:22 Patient Tobacco Use Status Never used Tobacco 07/19/25 16:22 e-Cigarette/Vaping Use Never Used 07/19/25 16:22 Thrive Assessment: Date of Thrive Assessment Date Thrive assessed 03/05/25 07/19/25 16:24 Telehealth Telehealth Telehealth Platform: Telephone Location of provider rendering services: practice address Location of patient: address on file Patient Identification confirmed using: Name, : Yes Telehealth method: voice only Patient verbally consented to treatment: Yes Patient verbally consented to billing insurance company: Yes Patient informed of any privacy concerns related to visit: Yes Minutes spent on Phone/Video with Pt.: 12 Coding Level of Care Code Tele Est Pt Level 2 (92452) Diagnoses Left shoulder pain M25.512 Knee pain M25.569 Assessment & Plan Assessment & Plan (1) Left shoulder pain: Code(s): M25.512 - Pain in left shoulder Category: Medical (2) Knee pain: Code(s): M25.569 - Pain in unspecified knee Category: Medical Plan Bilateral knee pain and history of right knee replacement. Now followed by ortho and s/p injection therapy. Left knee is significantly improved after injection. He is working on exercises for his knee which he says are also helping. Continue left knee exercises and follow-up with ortho as needed for additional injection therapy if/when needed. Left shoulder pain and x-ray shows significant arthritis. Also question of a loose body though patient says ortho did not see this on the x-ray. May benefit from some physical therapy of the left shoulder and I have ordered this as well. Follow-up with ortho if not improving or worsens Ongoing abdominal pelvic pain with sexual activity/orgasm Ultrasound is ordered. Awaiting scan. Orders: Orders PT Evaluation and Treatment Today M25.512 - Pain in left shoulder
--- OUTSIDE RECORDS SUMMARY | 2025-07-19 18:50 | XMS_ITS | Clinical Summary ---
Author Organization [facility] it Address [address] [place] [address] Care Team Providers Care Director Specialty Name Role Phone Kee Still MD Primary Care Provider [phone] Immunizations Immunization Administration Dates Next Due Pfizer SARS-CoV-2 COVID-19, mRNA, LNP-S, preservative free 09/15/2020 Surgical History Surgery Date Site/Laterality Comments JOINT REPLACEMENT PROCEDURE:JOINT REPLACEMENT HERNIA REPAIR PROCEDURE:HERNIA REPAIR COLONOSCOPY PROCEDURE:COLONOSCOPY MUSCLE REPAIR 08/20/2018 Right PROCEDURE:REPAIR QUADRICEPS / HAMSTRING MUSCLE;COMMENT:Procedure: REPAIR QUADRICEPS MUSCLE & RETINACULAR RECLOSURE; Surgeon: Kee Echeverria MD; Location: [facility] ([facility]); Service: Orthopedics; Laterality: Right; TOTAL KNEE ARTHROPLASTY 06/23/2018 Right PROCEDURE:TOTAL KNEE ARTHROPLASTY;COMMENT:Procedure: REPLACEMENT TOTAL KNEE WITH NAVIGATION; Surgeon: Kee Echeverria MD; Location: [facility] ([facility]; Service: Orthopedics; Laterality: Right; KNEE SURGERY PROCEDURE:KNEE SURGERY TOTAL HIP ARTHROPLASTY PROCEDURE:TOTAL HIP ARTHROPLASTY;COMMENT:lt HERNIA REPAIR 06/17/2020 Right PROCEDURE:INGUINAL HERNIA REPAIR;COMMENT:Procedure: LAPAROSCOPY RIGHT REPAIR HERNIA INGUINAL; Surgeon: Baltazar Morgan MD; Location: [facility]; Service: General; [...] this topic Medical Devices Implanted Type Area Inspector Production Plastic Parts Device Identifier Shelf Expiration Date Model / Serial / Lot Cement Palacos R Bone 40gm - [id number] Implanted:Qty: 1 on 06/23/2018 by Kee Echeverria MD Right: Knee [employer] 10/26/2021 [id number] / / [id number] Cr Femoral Component Implanted:Qty: 1 on 06/23/2018 by Kee Echeverria MD Right: Knee 10/28/2022 / / [id number] Hallie Cr Knee Ultra Cs Tb Insert Size 5 14mm - [id number] Implanted:Qty: 1 on 06/23/2018 by Kee Echeverria MD Right: Knee [employer] 03/13/2023 SURENDRA-32804 / / [id number] Hallie Knee Tb Baseplate Cemnt Non Prous Size 5 Rt - [id number] Implanted:Qty: 1 on 06/23/2018 by Kee Echeverria MD Right: Knee [employer] 04/14/2023 SURENDRA-2205R / / [id number] Hallie Knee Retain [place] Congruent Or Ultra Insrt Prmry Tb Bspl - [id number] Implanted:Qty: 1 on 06/23/2018 by Kee Echeverria MD Right: Knee [employer] 03/28/2023 SURENDRA-64574 / / [id number] Hallie Knee 32mm Dome Patella 8mm Thickness - [id number] Implanted:Qty: 1 on 06/23/2018 by Kee Echeverria MD Right: Knee [employer] 09/19/2022 -[id number] / / [id number] Mesh 3dmax Large 6x4in Nonabs Patch Preformed Polypropylene - [id number] Implanted:Qty: 1 on 06/17/2020 by Baltazar Morgan MD Right: Groin [employer] 01/23/2025 [id number] / / [id number] Care Teams Director Specialty Relationship Specialty Start Date End Date Kee Still MD PCP - General Internal Medicine 03/24/15
--- OUTSIDE RECORDS SUMMARY | 2025-07-19 18:50 | XMS_ITS | Clinical Summary ---
Author Organization [facility] Prior to 12/26/24 Address [address] [place] [address] Care Team Providers Care Clip And Hanger Attacher Name Role Phone Kee Still MD Primary Care Provider [phone] Allergies Active Allergy Reactions Criticality Noted Date [...] this topic Medical Devices Implanted Type Area Mirror Polisher Device Identifier Shelf Expiration Date Model / Serial / Lot Cement Palacos R Bone 40gm - [id number] - [id number] Implanted:Qty: 1 on 06/23/2018 by Kee Echeverria MD at [facility] Right: Knee [employer] 10/26/2021 [id number] / / [id number] Cr Femoral Component Implanted:Qty: 1 on 06/23/2018 by Kee Echeverria MD [place] [facility] Right: Knee 10/28/2022 / / [id number] [place] Cr Knee Ultra Cs Tb Insert Size 5 14mm - [id number] - [id number] Implanted:Qty: 1 on 06/23/2018 by Kee Echeverria MD at [facility] Right: Knee [employer] 03/13/2023 SURENDRA-82058 / / [id number] [place] Knee Tb Baseplate Cemnt Non Prous Size 5 Rt - [id number] - [id number] Implanted:Qty: 1 on 06/23/2018 by Kee Echeverria MD at [facility] [place] Right: Knee [employer] 04/14/2023 SURENDRA-2205R / / [id number] Genes[place] Knee Retain [place] Congruent Or Ultra Insrt Prmry Tb Bspl - [id number] - [id number] Implanted:Qty: 1 on 06/23/2018 by Kee Echeverria MD at [facility] [place] [facility] Right: Knee [employer] 03/28/2023 SURENDRA-61325 / / [id number] [place] Knee 32mm Dome Patella 8mm Thickness - [id number] - [id number] Implanted:Qty: 1 on 06/23/2018 by Kee Echeverria MD at [facility] [place] Right: Knee [employer] 09/19/2022 SURENDRA-75020 / / [id number] Mesh 3dmax Large 6x4in Nonabs Patch Preformed Polypropylene - [id number] - [id number] Implanted:Qty: 1 on 06/17/2020 by Baltazar Morgan MD at [facility] Right: Groin [employer] 01/23/2025 [id number] / / [id number] Advance Directives For more information, please contact: [phone] Latest Code Status on File Code Status [...] in the following way: discussion with healthcare commercial pest control representative . Care Teams Clip And Hanger Attacher Relationship Specialty Start Date End Date Kee Still MD PCP - General Internal Medicine 03/24/15
== END 2025-07-19 17:05 | disposition home or self-care (01) ==
LOC: HO.HMCFM 16:24
PROVIDERS: PCP Family Medicine; Visit Provider Family Medicine
DX: M25.512 Pain in left shoulder (principal); M25.561 Pain in right knee; M25.562 Pain in left knee